=== PATIENT | female | born 1995 | race Caucasian/White ===

== ENCOUNTER → 2017-10-05 13:12 | Outpatient (CLI) | payer MEDICAID, SELFPAY ==
--- NOTE | 2017-10-05 13:16 | US_ITS ---
US breast LT complete COMPARISON: None INDICATION: Rest pain ORDERING PHYSICIAN: Shira Gonzalez PATIENT AGE: 21 years TECHNIQUE: Left breast ultrasound with axilla FINDINGS: General survey performed on the left breast shows a small cyst measuring 4 mm behind the nipple. No suspicious nodules evident. Small nodes are present in the axilla. IMPRESSION: 4 mm cyst in the retroareolar region otherwise negative left breast ultrasound BI-RADS Category: 2 Benign Finding(s) Suggest Follow-up as clinically warranted. Palpable nodule should be managed on clinical basis despite negative ultrasound.
== END ==
PROVIDERS: Family Provider Emergency Medicine; PCP Family Medicine Addiction Medicine; Visit Provider Nurse Practitioner Obstetrics & Gynecology
DX: N63.0 Unspecified lump in unspecified breast (principal)
CPT/HCPCS: 76641

== ENCOUNTER 2020-06-01 20:04 | Emergency (ER) | payer MEDICAID, SELFPAY ==
[2020-06-01 20:05] VITALS: BP 107/77; PULSE 99; RESP 16; TEMP 37.4; O2SAT 99; BMI 18.5
[2020-06-01 20:32] VITALS: BMI 18.5
[2020-06-01 20:38] LABS: Microscopic, Urine URINE MICROSCOPIC (MICROSCOPIC)
[2020-06-01 20:42] LABS: Appearance,Urine TURBID (Clear); Bilirubin,Urine Negative (Negative); Blood, Urine 2+ (Negative); Color,Urine YELLOW (Yellow); Glucose,Urine (UA) Negative (Negative); Ketones,Urine Negative (Negative); Leukocyte Esterase,Urine 2+ (Negative); Nitrate,Urine POSITIVE (Negative); Protein,Urine 2+ (Negative); Specific Gravity, Urine >= 1.030 (1.005-1.030); Urobilinogen,Urine 0.2 EU/dl (0.2)
[2020-06-01 20:43] LABS: Basophils % 0.1 % (0.1-2.0); Eosinophils # 0.1 K/mm3 (0.0-0.4); Eosinophils % 0.7 % (0.1-12.0); Hemoglobin 14.6 g/dL (12.2-16.2); Lymphocytes # 0.9 K/mm3 (0.7-4.5); Lymphocytes % 7.9 % (10-50); Mean Corpuscular HGB Conc 34.8 g/dL (31.8-35.4); Mean Corpuscular Hemoglobin 29.3 pg (27.0-31.2); Mean Corpuscular Volume 84.4 fl (81-99); Mean Platelet Volume 8.4 fl (7.4-10.4); Monocytes # 0.5 K/mm3 (0.1-1.0); Monocytes % 4.5 % (1.7-9.3); Neutrophils # 9.8 K/mm3 (1.8-7.8); Neutrophils % 86.8 % (37.0-80.0); Platelet Count 150 K/mm3 (142-424); Red Blood Count 4.97 M/mm3 (4.20-5.40); Urine Pregnancy, HCG Qual. Negative (Negative); White Blood Count 11.3 K/mm3 (4.8-10.8)
--- NOTE | 2020-06-01 20:43 | HMH.EDNVD ---
ED Disposition Clinical Impression: UTI (urinary tract infection) Qualifiers: Urinary tract infection type: acute pyelonephritis Qualified Code(s): N10 - Acute pyelonephritis Disposition: Home, Self-Care Condition on Discharge: Good Instructions: DI for Urinary Tract Infection (UTI) Additional Instructions: use meds and call pcp for urine culture results Prescriptions: levoFLOXacin [Levaquin 500mg tab] 500 mg PO DAILY #7 tab Transmission Status: Pending to [facility]/pharmacy #[id number] Referrals: Kayy Lara [Primary Care Provider] - - Critical Care Critical Care Time: No Attestation: On 06/01/20, the high probability of a clinically significant, sudden or life threatening deterioration of the following system(s) required my full and direct attention, intervention and personal management. The time I documented below is in addition to time spent performing reported procedures but includes the following listed in this critical care notation. Medical Decision Making - Medical Records Medical records reviewed: Yes: I reviewed the patient's medical records. - Primo Inquiry Pt receiving controlled substance: No Vital Signs: 06/01/20 20:05 Temperature 99.3 F Temperature Source Oral Pulse Rate [Left Radial] 99 H Respiratory Rate 16 Blood Pressure [Right Arm] 107/77 L Blood Pressure Mean [Right Arm] 87 Blood Pressure Source [Right Arm] Automatic Cuff Blood Pressure Position [Right Arm] Supine 02 Sat by Pulse Oximetry 99 Oxygen Delivery Method Room Air - Lab Data Lab results reviewed: Yes: I reviewed the patient's lab results. Lab Results 06/01/20 20:30: Urine Color Yellow, Urine Appearance Turbid, Urine pH 6.0, Ur Specific [place] >= 1.030, Urine Protein 2+, Urine Glucose (UA) Negative, Urine Ketones Negative, Urine Blood 2+, Urine Nitrate Positive, Urine Bilirubin Negative, Urine Urobilinogen 0.2, Ur Leukocyte Esterase 2+ A, Urine RBC 5-10, Urine WBC Tntc, Ur Squamous Epith Cells 10-20, Urine Bacteria 3+ 06/01/20 20:30: Urine HCG, Qual Negative 06/01/20 20:30: WBC 11.3 H, RBC 4.97, Hgb 14.6, Hct 42.0, MCV 84.4, MCH 29.3, MCHC 34.8, RDW 13.0, Plt Count 150, MPV 8.4, Neut % (Auto) 86.8 H, Lymph % (Auto) 7.9 L, [place] % (Auto) 4.5, Eos % (Auto) 0.7, Baso % (Auto) 0.1, Neut # (Auto) 9.8 H, Lymph # (Auto) 0.9, [place] # (Auto) 0.5, Eos # (Auto) 0.1, Baso # (Auto) 0.0, Total Counted 100, Neutrophils % (Manual) 84 H, Lymphocytes % (Manual) 15, Eosinophils % (Manual) 1, Platelet Estimate Normal, RBC Morphology Normal 06/01/20 20:30: Sodium 137, Potassium 3.2 L, Chloride 101, Carbon Dioxide 28, Anion Gap 11.2, BUN 9, Creatinine 0.70, Estimated Creat Clear 96, Estimated GFR 103, Est GFR ( Amer) 124, Glucose 141 H, Calcium 9.3, Total Bilirubin 0.4, AST 18, ALT 14, Alkaline Phosphatase 54, Total Protein 6.9, Albumin 4.1, Globulin 2.8, Albumin/Globulin Ratio 1.5, Amylase 78, Lipase 85 06/01/20 20:30: ESR 17 06/01/20 20:30: C-Reactive Protein 15.8 H Result diagrams: 06/01/20 20:30 06/01/20 20:30 Orders (Tests/Meds): ED MEDICATIONS Generic Name Dose Route Start Last Admin Trade Name Freq PRN Reason Stop Dose Admin Sodium Chloride 1,000 mls @ 999 mls/hr 06/01/20 20:45 06/01/20 20:45 Sod Chlor 0.9% 1000ml Bag IV 06/01/20 21:45 999 mls/hr .Q1H1M NAYAN Administration Ceftriaxone Sodium 1 gm/ 50 mls @ 100 mls/hr 06/01/20 20:45 06/01/20 20:46 Sodium Chloride IV 06/15/20 20:44 100 mls/hr Q24H NAYAN Administration Protocol Discontinued Medications Generic Name Dose Route Start Last Admin Trade Name Freq PRN Reason Stop Dose Admin Iopamidol 75 ml 06/01/20 21:08 06/01/20 21:09 Iopamidol-370 (76%);100ml Bottle IV 06/01/20 21:09 75 ml ONCE ONE Administration Ketorolac Tromethamine 30 mg 06/01/20 20:45 10/27/20 20:46 Ketorolac 30mg/Ml Vial IV 06/01/20 20:46 30 mg ONCE ONE Administration Sodium Chloride 10 ml 06/01/20 21:08 06/01/20 21:09 Sodium Chloride 0.9% 10ml Syr (Ra
[2020-06-01 20:44] LABS: Chloride 101 mmol/L (98-107); Potassium 3.2 mmoL/L (3.5-5.1); Sodium 137 mmol/L (136-145)
[2020-06-01 20:46] LABS: MANUAL DIFFERENTIAL MANUAL DIFFERENTIAL (MANUAL DIFF)
[2020-06-01 20:47] LABS: Alanine Aminotransferase 14 U/L (12-78); Alkaline Phosphatase 54 U/L (38-126); Amylase 78 U/L (30-110); Anion Gap 11.2 mEq/L (5-15); Aspartate Amino Transferase 18 U/L (14-36); Bilirubin,Total 0.4 mg/dl (0.2-1.3); Blood Urea Nitrogen 9 mg/dl (7-17); Calcium 9.3 mg/dl (8.4-10.2); Carbon Dioxide 28 mmol/L (22.0-30.0); Creatinine Clearance Estimated 96 mL/min (50-200); Estimated Glomerular Filt Rate 103 ml/min (>60); GFR (African American) 124 ML/MIN (>60); Glucose 141 mg/dl (74-100); Lipase 85 U/L (23-300)
--- NOTE | 2020-06-01 20:47 | CT_ITS ---
PROCEDURE: CT ABDOMEN PELVIS W CON CLINICAL INDICATION: abd pain Left flank pain, left lower quadrant pain COMPARISON: CT ABDPELWO CT abdomen pelvis wo con from 09/30/2018 TECHNIQUE: IV Contrast: 75ML OPTIRAY 350 Oral Contrast None Axial images obtained with sagittal and coronal reformats. All CT scans at the facility use one or more dose reduction, viz: automated exposure control, ma/kV adjustment per patient size (including targeted exams where dose is matched to indication, i.e. head), or iterative reconstruction technique. FINDINGS: LOWER THORAX: No acute finding ABDOMEN & PELVIS: The liver, gallbladder, spleen, adrenal glands, and pancreas have an unremarkable appearance. There is enhancement with thickening of the urothelium of the left renal pelvis and ureter. No definite ureteral calculus evident. There is minimal prominence of the left renal pelvis. No renal or ureteral calculi identified. Urinary bladder has an unremarkable appearance. The appendix is slightly prominent but is without stranding of the periappendiceal fat. Air density is also present within the appendix which is expected no intestinal obstruction or free air. Bowel gas pattern is nonspecific. Small amount fluid is present in the pelvis. There is mild prominence of the ovaries on both sides with numerous follicles with a 2 cm right ovarian cyst noted. No acute bony findings. There are few scattered small sclerotic foci in the hips which may be due to bone islands. IMPRESSION: 1. Mild left hydroureteronephrosis with thickening of the wall of the left renal pelvis and left ureter with contrast enhancement without definite obstruction. These findings may be seen with urinary tract infection. Recently passed stone is also consideration. Please correlate with clinical findings. 2. Prominent bilateral ovaries with small follicles and a 2 cm right ovarian cyst with trace amount of fluid in the pelvis. Dictated by: Ten Baxter MD 06/02/2020 06:38 Ten Baxter MD in [facility] 06/02/2020 06:38
[2020-06-01 20:48] LABS: Albumin Level 4.1 g/dl (3.5-5.0); Albumin/Globulin Ratio 1.5 (1.1-1.8); Globulin 2.8 g/dL (1.3-3.2); Total Protein,Serum 6.9 g/dl (6.3-8.2)
[2020-06-01 20:59] LABS: C-Reactive Protein 15.8 mg/L (0-4)
[2020-06-01 21:00] VITALS: BP 107/77; PULSE 78; RESP 17; O2SAT 99
[2020-06-01 21:14] LABS: Erythrocyte Sedimentation Rate 17 mm/hr (0-20)
[2020-06-01 21:18] LABS: Bacteria,Urine 3+ /lpf; WBC,Urine TNTC #/hpf (0-3)
[2020-06-01 21:30] VITALS: BP 110/58; PULSE 79; RESP 17; O2SAT 100
[2020-06-01 21:35] LABS: Eosinophils % 1 % (0-3); Lymphocytes % 15 % (10-50); Neutrophils % 84 % (42-76); Platelet Estimate Normal; RBC Morphology Normal; Total Cells Counted 100
[2020-06-01 22:00] VITALS: BP 94/65; PULSE 76; RESP 17; O2SAT 100
[2020-06-01 22:30] VITALS: BP 93/56; PULSE 76; RESP 17; O2SAT 99
[2020-06-01 22:33] VITALS: BP 101/62; PULSE 71; RESP 17; TEMP 37.2; O2SAT 99
== END 2020-06-01 22:35 | disposition home or self-care (01) ==
PROVIDERS: Emergency Provider Emergency Medicine; PCP Family Medicine Addiction Medicine
DX: N10 Acute pyelonephritis (principal); F17.290 Nicotine dependence, other tobacco product, uncomplicated
CPT/HCPCS: 74177; 80053; 81001; 81025; 82150; 83690; 85007; 85025; 85651; 86140; 87086; 87088; 87186; 96365; 96375; 99284; Q9967

== ENCOUNTER 2020-06-22 17:20 | Emergency (ER) | payer MEDICAID, SELFPAY ==
[2020-06-22 17:25] VITALS: BP 112/76; PULSE 79; RESP 16; TEMP 36.8; O2SAT 100; BMI 18.4
[2020-06-22 17:31] VITALS: BMI 18.5
[2020-06-22 17:36] LABS: Microscopic, Urine URINE MICROSCOPIC (MICROSCOPIC)
--- NOTE | 2020-06-22 17:37 | HMH.EDGENADL ---
ED Disposition Clinical Impression: Bleeding in early , Abdominal pain affecting Disposition: Home, Self-Care Condition on Discharge: Good Additional Instructions: Return to the hospital in 2 days for outpatient beta-hCG level. See Dr. Vergara in her office on 06/25/2020. Call [phone] to schedule appointment. No sexual intercourse or strenuous activity until you see Dr. Vergara. Return to the emergency room if worsening or severe abdominal pain or bleeding. Referrals: Kayy Lara [Primary Care Provider] - Angela Vergara MD [Staff Physician] - - Critical Care Critical Care Time: No Attestation: On 06/22/20, the high probability of a clinically significant, sudden or life threatening deterioration of the following system(s) required my full and direct attention, intervention and personal management. The time I documented below is in addition to time spent performing reported procedures but includes the following listed in this critical care notation. Medical Decision Making - Primo Inquiry Pt receiving controlled substance: No Vital Signs: 06/22/20 17:25 06/22/20 17:51 Temperature 98.3 F Temperature Source Oral Pulse Rate [Right Radial] 79 79 Respiratory Rate 16 18 Blood Pressure [Right Arm] 112/76 99/72 L Blood Pressure Mean [Right Arm] 88 81 Blood Pressure Source [Right Arm] Automatic Cuff Automatic Cuff Blood Pressure Position [Right Arm] Sitting Sitting 02 Sat by Pulse Oximetry 100 99 Oxygen Delivery Method Room Air Room Air - Lab Data Lab Results 06/22/20 17:25: Urine Color Yellow, Urine Appearance Cloudy, Urine pH 7.0, Ur Specific [place] 1.025, Urine Protein Negative, Urine Glucose (UA) Negative, Urine Ketones Negative, Urine Blood Negative, Urine Nitrate Negative, Urine Bilirubin Negative, Urine Urobilinogen 0.2, Ur Leukocyte Esterase Negative, Urine RBC Occasional, Urine WBC 3-5, Ur Squamous Epith Cells 5-10, Amorphous Sediment 1+, Urine Bacteria 2+ 06/22/20 17:25: Urine HCG, Qual Positive 06/22/20 18:00: WBC 7.0, RBC 5.06, Hgb 14.5, Hct 43.7, MCV 86.3, MCH 28.7, MCHC 33.2, RDW 12.7, Plt Count 197, MPV 7.8, Neut % (Auto) 64.8, Lymph % (Auto) 30.8, [place] % (Auto) 3.5, Eos % (Auto) 0.6, Baso % (Auto) 0.3, Neut # (Auto) 4.5, Lymph # (Auto) 2.2, [place] # (Auto) 0.2, Eos # (Auto) 0.0, Baso # (Auto) 0.0 06/22/20 18:00: HCG, Quant [id number] H Result diagrams: 06/22/20 18:00 Orders (Tests/Meds): ORDERS Category Date Time Status Urine Culture Stat Micro 06/22/20 17:25 Received US OB transvaginal Stat Ultrasound 06/22/20 17:55 Taken - US Data US Images: Pelvis Findings Narrative: As per [facility] procedure, ultrasound report received from bindery technician: Left ovary polycystic Right ovary enlarged, 3 cm cyst Uterus retroverted Intrauterine , yolk sac only Moderate amount of cul-de-sac fluid - Physician Consults Physician Consulted: Jai Time: 19:54 Reason -: Obstetrical Eval/Care Comment/Response: She wants further information on the ultrasound reading. I called the x-ray x ray electronics wiring technician, who will call the chemical treatment plant technician, Anne Marie, who is not currently in the hospital anymore, and have her call Dr. Vergara. 8:00 PM: Dr. Vergara spoke with the chemical treatment plant technician and got clarification. There is a gestational sac with a yolk sac in the uterus, she says it is definitely an IUP. The fluid in the cul-de-sac was mild to moderate, which she says does not concern her. She feels that the patient should be discharged with a repeat beta-hCG in 2 days and to see her in the office on 06/25/2020. Medical Decision Narrative: 7:45 PM: I am concerned about the discordance between the patient's beta hCG and the findings on ultrasound, could this represent ectopic . General Adult HPI - General Stated complaint: preg, spotting, cramping Time Seen by Provider: 06/22/20 17:37 - History of Present Illness HPI narrative: States she is and havi
[2020-06-22 17:50] LABS: Appearance,Urine CLOUDY (Clear); Bilirubin,Urine Negative (Negative); Blood, Urine Negative (Negative); Color,Urine YELLOW (Yellow); Glucose,Urine (UA) Negative (Negative); Ketones,Urine Negative (Negative); Leukocyte Esterase,Urine Negative (Negative); Nitrate,Urine Negative (Negative); Protein,Urine Negative (Negative); Specific Gravity, Urine 1.025 (1.005-1.030); Urobilinogen,Urine 0.2 EU/dl (0.2)
[2020-06-22 17:51] VITALS: BP 99/72; PULSE 79; RESP 18; O2SAT 99
[2020-06-22 17:53] LABS: Urine Pregnancy, HCG Qual. Positive (Negative)
--- NOTE | 2020-06-22 17:55 | US_ITS ---
PROCEDURE: US OB TRANSVAGINAL CLINICAL INDICATION: bleeding, , r/o ectopic Early Ob with bleeding COMPARISON: US TVP US TRANSVAGINAL PREG from 12/04/2016 FINDINGS: There is an intrauterine gestational sac and a yolk sac noted but no obvious pole. It may be too early to see a pole therefore, recommend follow-up ultrasound as well as correlation with serum beta HCG. There is a 3 cm right ovarian cyst. Bilateral ovarian blood flow is present. The uterus is retroverted. Fluid is present in the cul-de-sac. The IMPRESSION: Intrauterine gestational sac present with only yolk sac noted. No pole evident at this time. Possibly too early. Follow-up suggested. Moderate amount of fluid in the cul-de-sac. 3 cm right ovarian cyst. Dictated by: Ten Baxter MD 06/23/2020 06:18 Ten Baxter MD in [place] 06/23/2020 06:18
--- NOTE | 2020-06-22 18:09 | PC.NURSE ---
radiology notified of ultrasound order
[2020-06-22 18:19] LABS: Amorphous Sediment,Urine 1+ /lpf; Bacteria,Urine 2+ /lpf; RBC,Urine Occasional #/hpf (0-3)
[2020-06-22 18:21] LABS: Basophils % 0.3 % (0.1-2.0); Eosinophils % 0.6 % (0.1-12.0); Hematocrit 43.7 % (37.0-47.0); Hemoglobin 14.5 g/dL (12.2-16.2); Lymphocytes # 2.2 K/mm3 (0.7-4.5); Lymphocytes % 30.8 % (10-50); Mean Corpuscular HGB Conc 33.2 g/dL (31.8-35.4); Mean Corpuscular Hemoglobin 28.7 pg (27.0-31.2); Mean Corpuscular Volume 86.3 fl (81-99); Mean Platelet Volume 7.8 fl (7.4-10.4); Monocytes # 0.2 K/mm3 (0.1-1.0); Monocytes % 3.5 % (1.7-9.3); Neutrophils # 4.5 K/mm3 (1.8-7.8); Neutrophils % 64.8 % (37.0-80.0); Platelet Count 197 K/mm3 (142-424); Red Blood Count 5.06 M/mm3 (4.20-5.40); Red Cell Distribution Width 12.7 % (11.5-17.5)
[2020-06-22 18:41] LABS: HCG,Quantitative 11027 mIU/ml (0-5.42)
[2020-06-22 20:50] VITALS: BP 108/72; PULSE 99; RESP 18; TEMP 36.8
== END 2020-06-22 21:00 | disposition home or self-care (01) ==
PROVIDERS: Emergency Provider Emergency Medicine; PCP Family Medicine Addiction Medicine
DX: O20.9 Hemorrhage in early pregnancy, unspecified (principal); F17.290 Nicotine dependence, other tobacco product, uncomplicated
CPT/HCPCS: 76817; 81001; 81025; 84702; 85025; 87086; 99283

== ENCOUNTER → 2020-06-24 13:37 | Outpatient (CLI) | payer MEDICAID, SELFPAY ==
[2020-06-24 15:02] LABS: HCG,Quantitative 13812 mIU/ml (0-5.42)
== END ==
PROVIDERS: Visit Provider Emergency Medicine
DX: Z34.90 Encounter for supervision of normal pregnancy, unspecified, unspecified trimester (principal)
CPT/HCPCS: 36415; 84702

== ENCOUNTER → 2020-06-28 14:54 | Outpatient (CLI) | payer MEDICAID, SELFPAY | PROVIDERS: Visit Provider Obstetrics & Gynecology | DX: Z34.90 Encounter for supervision of normal pregnancy, unspecified, unspecified trimester (principal) | CPT/HCPCS: 36415; 84702 ==

== ENCOUNTER → 2020-07-16 14:28 | Outpatient (CLI) | payer MEDICAID, SELFPAY ==
--- NOTE | 2020-07-16 14:28 | US_ITS ---
PROCEDURE: US OB TRANSVAGINAL CLINICAL INDICATION: US t/v- check for viability and DATES COMPARISON: US US OB TRANSVAGINAL from 06/22/2020 FINDINGS: An intrauterine gestational sac is present with a pole with a crown-rump length of 1.98cm correlating to gestational age of 8weeks 4days. heart tones are present with an FHR of 167bpm. Yolk sac is noted. There is a right ovarian cyst at 2.4 cm. Bilateral ovarian blood flow is present IMPRESSION: Live IUP at 8 weeks 4 days. Estimated due date by Ultrasound is 02/21/2021 Dictated by: Ten Baxter MD 07/16/2020 16:26 Ten Baxter MD in [place] 07/16/2020 16:26
== END ==
PROVIDERS: PCP Family Medicine Addiction Medicine; Visit Provider Obstetrics & Gynecology
DX: O36.80X0 Pregnancy with inconclusive fetal viability, not applicable or unspecified (principal)
CPT/HCPCS: 76817

== ENCOUNTER → 2020-07-19 17:40 | Outpatient (CLI) | payer MEDICAID, SELFPAY ==
[2020-07-19 18:28] LABS: Benzodiazepines Screen,Urine Negative ng/ml (<200)
[2020-07-19 18:29] LABS: Amphetamine/Metha Screen,Urine Negative ng/ml (<1000)
[2020-07-19 18:30] LABS: Barbiturates Screen,Urine Negative ng/ml (<200); Cannabinoid Screen,Urine Negative ng/ml (<50)
[2020-07-19 18:31] LABS: Cocaine Screen,Urine Negative ng/ml (<300); Methadone Screen,Urine Negative ng/ml (<300)
[2020-07-19 18:32] LABS: Opiate Screen,Urine Negative ng/ml (<300)
[2020-07-19 18:33] LABS: Phencyclidine Screen,Urine Negative ng/ml (<25)
== END ==
LOC: LAB 17:40 → LAB.DROPOF 07-20 08:25
PROVIDERS: Visit Provider Obstetrics & Gynecology
DX: Z34.90 Encounter for supervision of normal pregnancy, unspecified, unspecified trimester (principal)
CPT/HCPCS: 80305; 87086; 87088; 87186

== ENCOUNTER → 2020-08-13 15:30 | Outpatient (CLI) | payer MEDICAID, SELFPAY ==
[2020-08-13 17:03] LABS: Basophils % 0.2 % (0.1-2.0); Eosinophils % 0.4 % (0.1-12.0); Hematocrit 39.6 % (37.0-47.0); Hemoglobin 13.8 g/dL (12.2-16.2); Lymphocytes # 1.5 K/mm3 (0.7-4.5); Lymphocytes % 22.1 % (10-50); Mean Corpuscular HGB Conc 34.8 g/dL (31.8-35.4); Mean Corpuscular Hemoglobin 29.1 pg (27.0-31.2); Mean Corpuscular Volume 83.8 fl (81-99); Mean Platelet Volume 8.1 fl (7.4-10.4); Monocytes # 0.2 K/mm3 (0.1-1.0); Monocytes % 3.1 % (1.7-9.3); Neutrophils % 74.1 % (37.0-80.0); Platelet Count 168 K/mm3 (142-424); Red Blood Count 4.72 M/mm3 (4.20-5.40); White Blood Count 6.7 K/mm3 (4.8-10.8)
[2020-08-15 18:00] LABS: Rapid Plasma Reagin Ab Titer Non Reactive (NonRea<1:1)
[2020-08-16 08:08] LABS: HIV Screen 4th Generation wRfx Non Reactive (Non Reactive)
[2020-08-16 15:15] LABS: Hepatitis B Surface Antigen Negative (Negative); Hepatitis C Antibody 0.1 s/co ratio (0.0-0.9)
== END ==
PROVIDERS: Visit Provider Obstetrics & Gynecology
DX: Z34.90 Encounter for supervision of normal pregnancy, unspecified, unspecified trimester (principal)
CPT/HCPCS: 36415; 85025; 86592; 86703; 86762; 86850; 87340; 87380; G0432

== ENCOUNTER 2020-09-02 20:51 | Emergency (ER) | payer MEDICAID, SELFPAY ==
[2020-09-02 20:59] VITALS: BP 116/64; PULSE 96; RESP 18; TEMP 36.9; O2SAT 98; BMI 19.5
--- NOTE | 2020-09-02 21:03 | HMH.EDUTC ---
[facility] [place] Disposition Clinical Impression: Nausea & vomiting Qualifiers: Vomiting type: unspecified Vomiting Intractability: unspecified Qualified Code(s): R11.2 - Nausea with vomiting, unspecified Headache Qualifiers: Headache type: unspecified Headache chronicity pattern: unspecified pattern Intractability: not intractable Qualified Code(s): R51.9 - Headache, unspecified Disposition: Home, Self-Care Condition on Discharge: Good Instructions: DI for Headache, Ondansetron Additional Instructions: ? Avoid fruit juices, as these do not replace minerals and can actually increase diarrhea. ? Children and adults can use sports drinks to replenish electrolytes. Younger children and infants should use products formulated for children, like oral rehydration solutions. ? Eat food in small amounts and let your stomach recover. ? Get lots of rest. You may feel tired or weak. ? No greasy or fried foods for the next 24-48 hours BRAT diet Bananas Rice Apples and [place] ? Make sure to drink plenty of liquids ? Return if needed ? Straight to ER if any life threatening symptoms ? Zofran as prescribed ?? Follow up with family doctor in the next 48-72 hours if no improvement or any worsening of symptoms Medication for headache that is on the list by your OBGYN FOllow up with your Family Doctor Follow up with your OBGYN Prescriptions: Ondansetron [Zofran 4mg ODT] 4 mg PO TIDP PRN #12 tab PRN Reason: Vomiting Transmission Status: Pending to [facility] #[id number] Referrals: Kayy Lara [Primary Care Provider] - As needed Angela Vergara MD [Staff Physician] - Time of Disposition: 21:38 Medical Decision Making - Primo Inquiry Pt receiving controlled substance: No Primo was queried for this patient: No Vital Signs: 09/02/20 20:59 09/02/20 21:14 Temperature 98.4 F 98.0 F Temperature Source Oral Oral Pulse Rate 65 Pulse Rate [Left] 96 H Respiratory Rate 18 16 Blood Pressure 114/72 Blood Pressure [Right Arm] 116/64 Blood Pressure Mean [Right Arm] 81 Blood Pressure Source [Right Arm] Automatic Cuff Blood Pressure Position [Right Arm] Sitting 02 Sat by Pulse Oximetry 98 Orders (Tests/Meds): ED MEDICATIONS Discontinued Medications Generic Name Dose Route Start Last Admin Trade Name Freq PRN Reason Stop Dose Admin Acetaminophen 650 mg 09/02/20 21:06 09/02/20 21:11 Acetaminophen 325mg Tab PO 09/02/20 21:07 650 mg ONCE ONE Administration Ondansetron HCl 4 mg 09/02/20 21:06 09/02/20 21:11 Ondansetron 4mg Odt SL 09/02/20 21:07 4 mg ONCE ONE Administration Medical Decision Narrative: Medication discussed with Pharmacy zofran and Tylenol baby safe due to after Tylenol and Zofran patient states that headache is better and nausea now gone patient sitting up on table drinking water no vomiting since arrival discussed with patient that she could be transferred to the ED for further work up and declined States that she will go home and try to sleep off remainder of migraine headache and follow up tomorrow with PCP or OBGYN [facility] [place] HPI - General Stated complaint: migraine and vomitting Time Seen by Provider: 09/02/20 21:04 Mode of Arrival: Ambulatory Source of Information: Patient Limitations: No Limitations Description of Symptoms (Recalled from Triage Doc. by RN): pt has had a migraine and n/v for three days and is 15 weeks . HEENT Symptoms (Recalled from RN notes): Yes (HILL) Resp Symptoms (Recalled from RN notes): No Skin Symptoms (Recalled from RN notes): No MS Symptoms (Recalled from RN notes): No Functional Status (Recalled from RN notes): na - History of Present Illness Provider Complaint: Patient state that she is 15wks OB States that she has a history of migraine HILL States that when she gets a migraine she has some vomiting States that she has had Headache on and off for 3 days along with vomiting Denies abdominal pain denies spotting State that she took Tylenol th
[2020-09-02 21:14] VITALS: BP 114/72; PULSE 65; RESP 16; TEMP 36.7
== END 2020-09-02 21:38 | disposition home or self-care (01) ==
PROVIDERS: Emergency Provider Nurse Practitioner; PCP Family Medicine Addiction Medicine
DX: G43.111 Migraine with aura, intractable, with status migrainosus (principal); Z3A.15 15 weeks gestation of pregnancy; Z88.2 Allergy status to sulfonamides
CPT/HCPCS: 99202; G0463

== ENCOUNTER 2020-09-12 17:52 | Emergency (ER) | payer MEDICAID, SELFPAY ==
[2020-09-12 17:53] VITALS: BP 112/70; PULSE 90; RESP 19; TEMP 36.7; O2SAT 100; BMI 20.5
--- NOTE | 2020-09-12 17:57 | HMH.EDGENADL ---
ED Disposition Clinical Impression: Asymptomatic bacteriuria during Disposition: Home, Self-Care Condition on Discharge: Good Additional Instructions: Take antibiotics as prescribed. Take prescribed labeling for breakthrough headaches only. Please continue drink plenty of clear fluids. Follow-up with SOC[employer]UDIES TEACHER within several days. Return immediately if any vaginal bleeding, recurrent abdominal cramping, decreased movement, fever/chills, or any other new concerning symptoms. Prescriptions: Nitrofurantoin Monohyd/M-Cryst [Macrobid 100 mg Capsule] 100 mg PO BID 5 Days #10 cap Transmission Status: Pending to [facility] # Metoclopramide HCl [Reglan 10mg Tab] 10 mg PO BID #12 tab Transmission Status: Pending to [facility] # Referrals: PCP,No [Primary Care Provider] - - Critical Care Critical Care Time: No Attestation: On , the high probability of a clinically significant, sudden or life threatening deterioration of the following system(s) required my full and direct attention, intervention and personal management. The time I documented below is in addition to time spent performing reported procedures but includes the following listed in this critical care notation. Medical Decision Making - Medical Records Medical records reviewed: Yes: I reviewed the patient's medical records. - Primo Inquiry Pt receiving controlled substance: No Vital Signs: 09/12/20 17:53 09/12/20 18:50 Temperature 98.1 F Temperature Source Oral Pulse Rate [Left Radial] 90 84 Respiratory Rate 19 Blood Pressure [Right Arm] 112/70 113/65 Blood Pressure Mean [Right Arm] 84 81 Blood Pressure Source [Right Arm] Automatic Cuff Automatic Cuff Blood Pressure Position [Right Arm] Sitting Sitting 02 Sat by Pulse Oximetry 100 100 Oxygen Delivery Method Room Air Room Air - Lab Data Lab Results 09/12/20 18:05: Blood Type O Positive, Antibody Screen Negative 09/12/20 18:26: Urine Color Yellow, Urine Appearance Sl cloudy, Urine pH 6.0, Ur Specific [place] 1.025, Urine Protein Negative, Urine Glucose (UA) 1+, Urine Ketones Negative, Urine Blood Negative, Urine Nitrate Negative, Urine Bilirubin Negative, Urine Urobilinogen 0.2, Ur Leukocyte Esterase Negative, Ur Squamous Epith Cells 20-50, Amorphous Sediment Trace, Urine Bacteria Trace 09/12/20 18:26: WBC 7.2, RBC 4.39, Hgb 12.9, Hct 37.9, MCV 86.3, MCH 29.5, MCHC 34.1, RDW 14.1, Plt Count 182, MPV 8.0, Neut % (Auto) 79.3, Lymph % (Auto) 15.5, [place] % (Auto) 4.5, Eos % (Auto) 0.5, Baso % (Auto) 0.1, Neut # (Auto) 5.7, Lymph # (Auto) 1.1, [place] # (Auto) 0.3, Eos # (Auto) 0.0, Baso # (Auto) 0.0 09/12/20 18:26: Sodium 134 L, Potassium 3.3 L, Chloride 105, Carbon Dioxide 25, Anion Gap 7.3, BUN 7, Creatinine 0.50 L, Estimated Creat Clear 144, Estimated GFR 152, Est GFR ( Amer) 183, Glucose 80, Calcium 9.4, Total Bilirubin 0.4, AST 23, ALT 17, Alkaline Phosphatase 47, Total Protein 6.8, Albumin 3.8, Globulin 3.0, Albumin/Globulin Ratio 1.3 Result diagrams: 09/12/20 18:26 09/12/20 18:26 Orders (Tests/Meds): ED MEDICATIONS Generic Name Dose Route Start Last Admin Trade Name Freq PRN Reason Stop Dose Admin Sodium Chloride 1,000 mls @ 999 mls/hr 09/12/20 18:15 09/12/20 18:42 Sod Chlor 0.9% 1000ml Bag IV 09/12/20 19:15 999 mls/hr .Q1H1M NAYAN Administration Discontinued Medications Generic Name Dose Route Start Last Admin Trade Name Freq PRN Reason Stop Dose Admin Metoclopramide HCl 10 mg 09/12/20 18:17 09/12/20 18:42 Metoclopramide Hcl 10mg/2ml Vial IVP 09/12/20 18:18 10 mg ONCE ONE Administration ORDERS Category Date Time Status HCG,Quantitative Stat Lab 09/12/20 18:26 Received Medical Decision Narrative: Patient presents the emergency department with nausea, headache, abdominal cramping. On arrival, patient hemodynamically stable and well-appearing. Blood pressure well controlled and she is only 17 we
--- NOTE | 2020-09-12 18:33 | PC.NURSE ---
Heart tone 134
[2020-09-12 18:36] LABS: Microscopic, Urine URINE MICROSCOPIC (MICROSCOPIC)
[2020-09-12 18:39] LABS: Basophils % 0.1 % (0.1-2.0); Eosinophils % 0.5 % (0.1-12.0); Hematocrit 37.9 % (37.0-47.0); Hemoglobin 12.9 g/dL (12.2-16.2); Lymphocytes # 1.1 K/mm3 (0.7-4.5); Lymphocytes % 15.5 % (10-50); Mean Corpuscular HGB Conc 34.1 g/dL (31.8-35.4); Mean Corpuscular Hemoglobin 29.5 pg (27.0-31.2); Mean Corpuscular Volume 86.3 fl (81-99); Monocytes # 0.3 K/mm3 (0.1-1.0); Monocytes % 4.5 % (1.7-9.3); Neutrophils # 5.7 K/mm3 (1.8-7.8); Neutrophils % 79.3 % (37.0-80.0); Platelet Count 182 K/mm3 (142-424); Red Blood Count 4.39 M/mm3 (4.20-5.40); Red Cell Distribution Width 14.1 % (11.5-17.5); White Blood Count 7.2 K/mm3 (4.8-10.8)
[2020-09-12 18:46] LABS: Chloride 105 mmol/L (98-107); Potassium 3.3 mmoL/L (3.5-5.1); Sodium 134 mmol/L (136-145)
[2020-09-12 18:47] LABS: Appearance,Urine SL CLOUDY (Clear); Bilirubin,Urine Negative (Negative); Blood, Urine Negative (Negative); Color,Urine YELLOW (Yellow); Glucose,Urine (UA) 1+ (Negative); Ketones,Urine Negative (Negative); Leukocyte Esterase,Urine Negative (Negative); Nitrate,Urine Negative (Negative); Protein,Urine Negative (Negative); Specific Gravity, Urine 1.025 (1.005-1.030); Urobilinogen,Urine 0.2 EU/dl (0.2)
[2020-09-12 18:48] LABS: Blood Urea Nitrogen 7 mg/dl (7-17); Creatinine Clearance Estimated 144 mL/min (50-200); Estimated Glomerular Filt Rate 152 ml/min (>60); GFR (African American) 183 ML/MIN (>60)
[2020-09-12 18:49] LABS: Alanine Aminotransferase 17 U/L (12-78); Albumin Level 3.8 g/dl (3.5-5.0); Albumin/Globulin Ratio 1.3 (1.1-1.8); Alkaline Phosphatase 47 U/L (38-126); Amorphous Sediment,Urine Trace /lpf; Anion Gap 7.3 mEq/L (5-15); Aspartate Amino Transferase 23 U/L (14-36); Bacteria,Urine Trace /lpf; Bilirubin,Total 0.4 mg/dl (0.2-1.3); Calcium 9.4 mg/dl (8.4-10.2); Carbon Dioxide 25 mmol/L (22.0-30.0); Glucose 80 mg/dl (74-100); Squamous Epithelial Cell,Urine 20-50 #/hpf (0-5); Total Protein,Serum 6.8 g/dl (6.3-8.2)
[2020-09-12 18:50] VITALS: BP 113/65; PULSE 84; O2SAT 100
[2020-09-12 19:50] VITALS: BP 114/67; PULSE 112; RESP 14; TEMP 36.6; O2SAT 98
== END 2020-09-12 19:53 | disposition home or self-care (01) ==
PROVIDERS: Emergency Provider Emergency Medicine
DX: O99.891 Other specified diseases and conditions complicating pregnancy (principal); Z3A.17 17 weeks gestation of pregnancy; F17.290 Nicotine dependence, other tobacco product, uncomplicated; Z88.2 Allergy status to sulfonamides
CPT/HCPCS: 36415; 80053; 81001; 84702; 85025; 86850; 99282

== ENCOUNTER → 2020-10-08 12:57 | Outpatient (CLI) | payer MEDICAID, SELFPAY ==
--- NOTE | 2020-10-08 13:13 | US_ITS ---
PROCEDURE: US OB /MATERNAL DETAIL CLINICAL INDICATION: US OB Complete COMPARISON: US US OB TRANSVAGINAL from 07/16/2020 FINDINGS: There is a single live fetus which is in cephalic presentation. The cervix is closed measuring 4 cm in length. The placenta is anterior and grade 1 in implantation. Complete survey performed and was unremarkable on the submitted images as in PACS. No discrete anomalies identified on survey imaging by technologist. Active fetus. Three-vessel cord with satisfactory umbilical cord insertion. 4- chamber heart noted. Survey of brain & ventricles Unremarkable. Face and neck survey unremarkable. Diaphragm and chest views unremarkable. Abdomen: Both kidneys noted and unremarkable. Stomach noted and satisfactory. Spine: Survey of the spine satisfactory with no anomalies identified nor imaged. Both arms and legs noted. Amniotic Fluid: Adequate. Maternal adnexa: No significant findings. Measurements: Average ultrasound age 20weeks 4days. Gestational Age 20weeks 4days Estimated due date by ultrasound age 0702/21/2021. Estimated weight 362g BPD = 20weeks 6days OFD = 21weeks 0days HC = 20weeks 1day AC = 20weeks 4days FL = 20weeks 5days Growth Percentile= 45Percent% Heart Rate = 146bpm Cerebellum = 20weeks 6days Humerus = 20weeks 6days HC/AC is 1.15 CI is 0.79 FL/BPD is 0.69 FL/AC is 0.22 IMPRESSION: Live IUP at 20 weeks 4 days in cephalic presentation. No obvious anomalies. Please see above for detail. Dictated by: Ten Baxter MD 10/09/2020 07:28 Ten Baxter MD in [facility] 10/09/2020 07:28
== END ==
PROVIDERS: Visit Provider Obstetrics & Gynecology
DX: Z36.0 Encounter for antenatal screening for chromosomal anomalies (principal)
CPT/HCPCS: 76811

== ENCOUNTER → 2020-11-09 12:42 | Outpatient (CLI) | payer MEDICAID, SELFPAY | PROVIDERS: Visit Provider Obstetrics & Gynecology | DX: Z34.90 Encounter for supervision of normal pregnancy, unspecified, unspecified trimester (principal) ==

== ENCOUNTER 2020-11-09 20:19 | Outpatient (CLI) | payer MEDICAID, SELFPAY ==
[2020-11-09 20:41] VITALS: BMI 23.0
[2020-11-09 20:45] VITALS: BP 133/81; PULSE 113; RESP 16; TEMP 36.8; O2SAT 99; BMI 24.5
[2020-11-09 20:56] LABS: Microscopic, Urine URINE MICROSCOPIC (MICROSCOPIC)
[2020-11-09 21:03] LABS: Appearance,Urine CLEAR (Clear); Bilirubin,Urine Negative (Negative); Blood, Urine Negative (Negative); Color,Urine YELLOW (Yellow); Glucose,Urine (UA) Negative (Negative); Ketones,Urine Negative (Negative); Leukocyte Esterase,Urine Negative (Negative); Nitrate,Urine Negative (Negative); Protein,Urine Negative (Negative); Specific Gravity, Urine 1.015 (1.005-1.030); Urobilinogen,Urine 0.2 EU/dl (0.2)
[2020-11-09 21:10] LABS: Amphetamine/Metha Screen,Urine Negative ng/ml (<1000)
[2020-11-09 21:11] LABS: Barbiturates Screen,Urine Negative ng/ml (<200); Fetal Membrane Rupture (Rapid) Negative (Negative)
[2020-11-09 21:12] LABS: Benzodiazepines Screen,Urine Negative ng/ml (<200); Cannabinoid Screen,Urine Negative ng/ml (<50)
[2020-11-09 21:13] LABS: Cocaine Screen,Urine Negative ng/ml (<300)
[2020-11-09 21:14] LABS: Bacteria,Urine 1+ /lpf; Methadone Screen,Urine Negative ng/ml (<300); Phencyclidine Screen,Urine Negative ng/ml (<25)
[2020-11-09 21:15] LABS: Opiate Screen,Urine Negative ng/ml (<300)
== END 2020-11-09 21:21 | disposition home or self-care (01) ==
LOC: OBOUT 20:20 → OB 20:22
PROVIDERS: Visit Provider Nurse Practitioner Obstetrics & Gynecology
DX: O26.892 Other specified pregnancy related conditions, second trimester (principal); Z3A.25 25 weeks gestation of pregnancy
CPT/HCPCS: 59025; 80305; 81001; 84112; G0463

== ENCOUNTER → 2020-11-11 11:54 | Outpatient (CLI) | payer MEDICAID, SELFPAY ==
[2020-11-11 12:21] LABS: Glucose,Fasting 77 mg/dl (74-100)
[2020-11-11 14:33] LABS: Glucose 1 Hour 104 mg/dL (74-100)
== END ==
PROVIDERS: Visit Provider Obstetrics & Gynecology
DX: Z34.90 Encounter for supervision of normal pregnancy, unspecified, unspecified trimester (principal)
CPT/HCPCS: 36415; 82951

== ENCOUNTER 2022-01-09 20:26 | Emergency (ER) | payer MEDICAID, SELFPAY ==
--- NOTE | 2022-01-09 20:24 | ECG_ITS ---
APPROVED REPORT Exam: Resting ECG HR:70 bpm ECG Measurements Heart Rate 70 AXES HI 143 P 61 QRSd 89 QRS 83 QT 384 T 63 QTc 405 Conclusion SINUS RHYTHM WITH MARKED SINUS ARRHYTHMIA NONSPECIFIC T-WAVE ABNORMALITY BORDERLINE ECG UNCONFIRMED REPORT Electronically signed by : Rashard Mcmahan MD 01/10/2022 18:41:42
[2022-01-09 20:27] VITALS: BP 118/74; PULSE 88; RESP 14; TEMP 36.8; O2SAT 99; BMI 21.2
--- NOTE | 2022-01-09 20:35 | XR_ITS ---
PROCEDURE INFORMATION: Exam: XR Chest Exam date and time: 01/09/2022 8:35 PM Age: 26 years old Clinical indication: Sternal or substernal pain; Additional info: Chest pain TECHNIQUE: Imaging protocol: XR of the chest. Views: 2 views. COMPARISON: CT ABDOMEN PELVIS W CON 06/01/2020 9:00 PM FINDINGS: Lungs: Lungs are clear. Pleural spaces: No pleural effusion. No pneumothorax. Heart/Mediastinum: Cardiomediastinal silouhette is within normal limits. Bones/joints: No acute osseous abnormality. Soft tissues: Unremarkable. IMPRESSION: No acute findings.
[2022-01-09 20:49] LABS: Basophils # 0.2 K/mm3 (0-0.2); Basophils % 3.5 % (0.1-2.0); Eosinophils # 0.1 K/mm3 (0.0-0.4); Hematocrit 46.4 % (37.0-47.0); Hemoglobin 15.9 g/dL (12.2-16.2); Lymphocytes # 2.2 K/mm3 (0.7-4.5); Mean Corpuscular HGB Conc 34.3 g/dL (31.8-35.4); Mean Corpuscular Hemoglobin 29.1 pg (27.0-31.2); Mean Platelet Volume 9.1 fl (7.4-10.4); Monocytes # 0.3 K/mm3 (0.1-1.0); Monocytes % 4.4 % (1.7-9.3); Platelet Count 196 K/mm3 (142-424); Red Blood Count 5.46 M/mm3 (4.20-5.40); White Blood Count 5.7 K/mm3 (4.8-10.8)
[2022-01-09 21:00] VITALS: BP 109/67; PULSE 68; RESP 9; O2SAT 96
[2022-01-09 21:03] LABS: Chloride 104 mmol/L (98-107); Sodium 137 mmol/L (136-145)
[2022-01-09 21:04] LABS: Potassium 3.7 mmoL/L (3.5-5.1)
--- NOTE | 2022-01-09 21:04 | HMH.EDARPALP ---
ED Disposition Clinical Impression: Heart palpitations Disposition: Home, Self-Care Condition on Discharge: Good Instructions: DI for Palpitations Additional Instructions: see card for follow up nathalia Referrals: Provider,Tyra, [Primary Care Provider] - Cristi Dobbs MD [Staff Physician] - - Critical Care Critical Care Time: No Attestation: On 01/09/22, the high probability of a clinically significant, sudden or life threatening deterioration of the following system(s) required my full and direct attention, intervention and personal management. The time I documented below is in addition to time spent performing reported procedures but includes the following listed in this critical care notation. Medical Decision Making - Medical Records Medical records reviewed: Yes: I reviewed the patient's medical records. - Primo Inquiry Pt receiving controlled substance: No Vital Signs: 01/09/22 20:27 Temperature 98.3 F Temperature Source Oral Pulse Rate [Left Radial] 88 Respiratory Rate 14 Blood Pressure [Right Arm] 118/74 Blood Pressure Mean [Right Arm] 88 Blood Pressure Position [Right Arm] Sitting 02 Sat by Pulse Oximetry 99 Oxygen Delivery Method Room Air - Lab Data Lab results reviewed: Yes: I reviewed the patient's lab results. Lab Results 01/09/22 20:34: Total Bilirubin 0.4, Direct Bilirubin 0.0, Conjugated Bilirubin 0.0, Indirect Bilirubin 0.4, Unconjugated Bilirubin 0.3, AST 22, ALT 15, Alkaline Phosphatase 52, Total Protein 7.5, Albumin 4.6 01/09/22 20:39: WBC 5.7, RBC 5.46 H, Hgb 15.9, Hct 46.4, MCV 85.0, MCH 29.1, MCHC 34.3, RDW 13.0, Plt Count 196, MPV 9.1, Neut % (Auto) 52.0, Lymph % (Auto) 38.0, [place] % (Auto) 4.4, Eos % (Auto) 2.0, Baso % (Auto) 3.5 H, Neut # (Auto) 3.0, Lymph # (Auto) 2.2, [place] # (Auto) 0.3, Eos # (Auto) 0.1, Baso # (Auto) 0.2 01/09/22 20:39: Troponin I < 0.01, C-Reactive Protein < 0.3, TSH 1.93 01/09/22 20:39: ESR 8 01/09/22 20:39: Procalcitonin 0.040, Thyroxine (T4) 7.1 01/09/22 20:39: Sodium 137, Potassium 3.7, Chloride 104, Carbon Dioxide 26, Anion Gap 10.7, BUN 11, Creatinine 0.90, Estimated Creat Clear 81, Estimated GFR 76, Est GFR ( Amer) 92, Glucose 107 H, Calcium 9.7, Magnesium 1.9 01/09/22 21:04: Urine Color Yellow, Urine Appearance Cloudy, Urine pH 7.0, Ur Specific [place] 1.020, Urine Protein Trace, Urine Glucose (UA) Negative, Urine Ketones Negative, Urine Blood 3+, Urine Nitrate Negative, Urine Bilirubin Negative, Urine Urobilinogen 1.0, Ur Leukocyte Esterase Negative 01/09/22 21:04: Urine HCG, Qual Negative Result diagrams: 01/09/22 20:39 01/09/22 20:39 Orders (Tests/Meds): ED MEDICATIONS Generic Name Dose Route Start Last Admin Trade Name Freq PRN Reason Stop Dose Admin Sodium Chloride 1,000 mls @ 999 mls/hr 01/09/22 20:45 01/09/22 21:15 Sod Chlor 0.9% 1000ml Bag IV 01/09/22 21:45 999 mls/hr .Q1H1M NAYAN Administration ORDERS Category Date Time Status Troponin I Q3H Lab 01/09/22 23:45 Ordered Troponin I Q3H Lab 01/10/22 02:45 Ordered UA [Urinalysis and Microscopic] Stat Lab 01/09/22 21:04 Results UDS [Drug Screen,Urine] Stat Lab 01/09/22 21:04 Received - Radiology Data #1 Image(s): Chest Image Reviewed: Yes I have reviewed radiologist's interpretation Preliminary Findings: Normal/NAD - ECG Data Tracing #1 Normal Sinus Rhythm: Yes Ischemic changes: non-specific ST-T wave changes - ARBEN Score for Non-Stemi Age of Patient: <30 years old Heart Rate: 70-89 bpm Systolic Blood Pressure: 100-119 mmHg Serum Creatinine: 0.80-1.19 mg/dl CHF [place] Class: I-No CHF Other Risk Factors: None Non-Stemi Risk Score: 59 Medical Decision Narrative: stable exam and labs with possible mvp or other card dis and will refer to card Arrhythmia/Palpitations HPI - General Chief Complaint: Chest Pain Stated Complaint: CHEST FLUTTERS Time Seen by Provider: 01/09/22 20:45 Mode of Arrival: Ambulatory Source of
[2022-01-09 21:07] LABS: Anion Gap 10.7 mEq/L (5-15); Blood Urea Nitrogen 11 mg/dl (7-17); Calcium 9.7 mg/dl (8.4-10.2); Carbon Dioxide 26 mmol/L (22.0-30.0); Creatinine Clearance Estimated 81 mL/min (50-200); Estimated Glomerular Filt Rate 76 ml/min (>60); GFR (African American) 92 ML/MIN (>60); Glucose 107 mg/dl (74-100); Magnesium 1.9 mg/dl (1.6-2.3)
[2022-01-09 21:14] LABS: C-Reactive Protein < 0.3 mg/L (0-4)
[2022-01-09 21:22] LABS: Troponin I < 0.01 ng/ml (0.00-0.034)
[2022-01-09 21:26] LABS: T4 (Thyroxine) 7.1 ug/dl (5.53-11.0)
[2022-01-09 21:30] VITALS: BP 100/75; PULSE 52; RESP 14; O2SAT 99
[2022-01-09 21:30] LABS: Alanine Aminotransferase 15 U/L (12-78); Albumin Level 4.6 g/dl (3.5-5.0); Alkaline Phosphatase 52 U/L (38-126); Aspartate Amino Transferase 22 U/L (14-36); Bilirubin,Indirect 0.4 mg/dL (0.0-0.9); Bilirubin,Total 0.4 mg/dl (0.2-1.3); Bilirubin,Unconjugated 0.3 mg/dL (0.0-1.1); Total Protein,Serum 7.5 g/dl (6.3-8.2)
[2022-01-09 21:35] LABS: Microscopic, Urine URINE MICROSCOPIC (MICROSCOPIC)
[2022-01-09 21:39] LABS: Thyroid Stimulating Hormone 1.93 uIU/mL (0.465-4.68)
[2022-01-09 21:58] LABS: Erythrocyte Sedimentation Rate 8 mm/hr (0-20)
[2022-01-09 22:00] VITALS: BP 93/71; RESP 10; O2SAT 99
[2022-01-09 22:00] LABS: Appearance,Urine CLOUDY (Clear); Bilirubin,Urine Negative (Negative); Blood, Urine 3+ (Negative); Color,Urine YELLOW (Yellow); Glucose,Urine (UA) Negative (Negative); Ketones,Urine Negative (Negative); Leukocyte Esterase,Urine Negative (Negative); Nitrate,Urine Negative (Negative); Protein,Urine TRACE (Negative)
[2022-01-09 22:02] LABS: Urine Pregnancy, HCG Qual. Negative (Negative)
[2022-01-09 22:10] LABS: Benzodiazepines Screen,Urine Negative ng/ml (<200)
[2022-01-09 22:11] LABS: Amphetamine/Metha Screen,Urine Negative ng/ml (<1000); Barbiturates Screen,Urine Negative ng/ml (<200)
[2022-01-09 22:12] LABS: Cannabinoid Screen,Urine Negative ng/ml (<50)
[2022-01-09 22:13] LABS: Cocaine Screen,Urine Negative ng/ml (<300); Methadone Screen,Urine Negative ng/ml (<300)
[2022-01-09 22:14] LABS: Opiate Screen,Urine Negative ng/ml (<300); Phencyclidine Screen,Urine Negative ng/ml (<25)
[2022-01-09 22:15] LABS: Bacteria,Urine 1+ /lpf
[2022-01-09 22:24] VITALS: BP 93/71; PULSE 75; RESP 18; TEMP 36.7; O2SAT 99
== END 2022-01-09 22:25 | disposition home or self-care (01) ==
PROVIDERS: Emergency Provider Emergency Medicine
DX: R00.2 Palpitations (principal); Z79.899 Other long term (current) drug therapy; Z88.2 Allergy status to sulfonamides; Z87.891 Personal history of nicotine dependence; Z80.9 Family history of malignant neoplasm, unspecified; Z82.3 Family history of stroke; Z83.49 Family history of other endocrine, nutritional and metabolic diseases; Z82.49 Family history of ischemic heart disease and other diseases of the circulatory system; Z83.438 Family history of other disorder of lipoprotein metabolism and other lipidemia; Z82.5 Family history of asthma and other chronic lower respiratory diseases
CPT/HCPCS: 71046; 80048; 80076; 80305; 81001; 81025; 83735; 84145; 84436; 84443; 84484; 85025; 85651; 86140; 93005; 96365; 99284

== ENCOUNTER 2022-02-23 13:00 | Emergency (ER) | payer MEDICAID, SELFPAY ==
[2022-02-23 13:01] VITALS: BP 100/67; PULSE 107; RESP 20; TEMP 36.7; O2SAT 98; BMI 20.5
[2022-02-23 13:28] LABS: UTC Strep Screen (Rapid) Negative (Negative)
--- NOTE | 2022-02-23 13:43 | HMH.EDUTC ---
[facility] [place] Disposition Clinical Impression: Viral syndrome, Exposure to COVID-19 virus, Abscess of skin of neck, Skin lesion of breast Left otitis media Qualifiers: Otitis media type: suppurative Chronicity: acute Recurrence: non-recurrent Spontaneous tympanic membrane rupture: without spontaneous rupture Qualified Code(s): H66.002 - Acute suppurative otitis media without spontaneous rupture of ear drum, left ear Disposition: Home, Self-Care Condition on Discharge: Good Instructions: DI for COVID-19 (Suspected or Confirmed ), Preventing the Spread of Coronavirus Discharge Instructions Additional Instructions: Drink plenty of fluids. Take tylenol or ibuprofen for pain or fever. Take the medications as directed. Follow up with your regular doctor. GO TO THE ER FOR ANY WORSENING SYMPTOMS Quarantine until you know the results of your covid-19 test. Notify your school or workplace of your results and follow their instructions regarding return to work/school. Follow up with Dr. Herring (dermatology) regarding your skin tag on your breast. Her phone number will be on this paper work. Her work excuse needs to count for 02/22 also. Prescriptions: Albuterol Sulfate [Albuterol Sulfate Hfa] 2 puffs IH Q6HP PRN 30 Days #1 each PRN Reason: Shortness Of Breath Transmission Status: Pending to [email or web address] Brompheniramine/Pseudoephed/Dm [Bromfed Dm Cough Syrup] 5 ml PO Q6HP PRN #240 ml PRN Reason: Cough Transmission Status: Pending to [facility] Ondansetron [Zofran 4mg ODT] 4 mg PO Q8HP PRN #12 tab PRN Reason: Nausea Transmission Status: Sent to [facility] Amoxicillin [Amoxicillin 500mg Tab] 500 mg PO TID 10 Days #30 tab Transmission Status: Pending to [email or web address] Mupirocin [Bactroban 2% Ointment 22gm tube] 1 applicatio TP TID 7 Days #1 gm Transmission Status: Pending to [facility] Referrals: Provider,Tyra, [Primary Care Provider] - Herlinda Herring MD [Referring] - Forms: Work/School Release Time of Disposition: 13:59 Medical Decision Making - Medical Records Medical records reviewed: No: I reviewed the patient's medical records. - Primo Inquiry Pt receiving controlled substance: No Vital Signs: 02/23/22 13:01 Temperature 98.0 F Temperature Source Oral Pulse Rate [Radial] 107 H Respiratory Rate 20 Blood Pressure [Right Arm] 100/67 L Blood Pressure Mean [Right Arm] 78 02 Sat by Pulse Oximetry 98 Oxygen Delivery Method Room Air - Lab Data Lab results reviewed: Yes: I reviewed the patient's lab results. Lab Results 02/23/22 13:12: Strep Scn Rapid Clinic Negative Orders (Tests/Meds): ORDERS Category Date Time Status Covid-19 Nasal PCR ([facility]) Routine Lab 02/23/22 13:13 Received Strep Screen Confirmation Stat Micro 02/23/22 13:12 Received [facility] UTC HPI - General Stated complaint: sore throat, runny nose, head congestion, nausea Time Seen by Provider: 02/23/22 13:43 Mode of Arrival: Ambulatory Source of Information: Patient Limitations: No Limitations Description of Symptoms (Recalled from Triage Doc. by RN): SORE THROAT, STUFFY NOSE, FEVER, BODY ACHES AND WEAKNESS HEENT Symptoms (Recalled from RN notes): Yes Resp Symptoms (Recalled from RN notes): No Skin Symptoms (Recalled from RN notes): No MS Symptoms (Recalled from RN notes): No Functional Status (Recalled from RN notes): N/A - History of Present Illness Provider Complaint: She states that for the past 3 days she has had chest congestion, sore throat, chills and she has felt bad. Her little brother currently has covid-19. She has a history of asthma, but she denies any shortness of breath at this time. - Related Data Home Medications Medication Instructions Recorded Confirmed PARoxetine HCl [Paxil] 1 tab PO DAILY 01/09/22 01/09/22 Previous Rx's Medication Instructions Recorded Albuterol Sulfate [Albuterol 2 puffs IH Q6HP PRN 30 Days
[2022-02-23 14:10] VITALS: BP 100/67; PULSE 100; RESP 18; TEMP 36.7; O2SAT 98
== END 2022-02-23 14:11 | disposition home or self-care (01) ==
PROVIDERS: Emergency Provider Nurse Practitioner Family
DX: U07.1 COVID-19 (principal); H66.002 Acute suppurative otitis media without spontaneous rupture of ear drum, left ear
CPT/HCPCS: 87880; 99212; C9803; G0463; U0003; U0005

== ENCOUNTER 2022-03-08 16:23 | Emergency (ER) | payer MEDICAID, SELFPAY ==
[2022-03-08 16:34] VITALS: BP 111/68; PULSE 90; RESP 16; TEMP 36.9; O2SAT 95; BMI 18.8
[2022-03-08 16:46] LABS: Apearance,Urine Clear (Clear); Color,Urine Yellow (Yellow)
[2022-03-08 16:47] LABS: Bilirubin,Urine Negative (Negative); Blood, Urine 2+ (Negative); Glucose,Urine (UA) Negative (Negative); Ketones,Urine Negative (Negative); Protein,Urine Negative (Negative); Specific Gravity, Urine 1.025 (1.005-1.030); UTC Leukocyte Esterase,Urine Trace (Negative); UTC Nitrate,Urine Negative (Negative); Urobilinogen,Urine 0.2 EU/dl (0.2)
--- NOTE | 2022-03-08 17:04 | HMH.EDUTC ---
[facility] [place] Clinical Impression: UTI (urinary tract infection) Qualifiers: Urinary tract infection type: site unspecified Hematuria presence: with hematuria Qualified Code(s): N39.0 - Urinary tract infection, site not specified Disposition: Home, Self-Care Condition on Discharge: Good Instructions: Urine Culture, DI for Urinary Tract Infection (UTI), Phenazopyridine Additional Instructions: Drink plenty of fluids. Take tylenol or ibuprofen for pain or fever. Take the medications as directed. Follow up with your regular doctor. GO TO THE ER FOR ANY WORSENING SYMPTOMS The pyridium will make your urine turn orange, this is an expected side effect. It will stain your clothes if it comes into contact with them. We will culture the urine. That will tell what bacteria is causing your infection and which antibiotics will treat it best. Sometimes the first antibiotic we prescribe turns out to not work against different bacteria. So, make sure you follow up within 3 days if you are not getting better. Prescriptions: Ondansetron [Zofran 4mg ODT] 4 mg PO Q8HP PRN #20 tab PRN Reason: Nausea Transmission Status: Received by [id number] Ciprofloxacin HCl [Cipro 500mg Tab] 500 mg PO BID 7 Days #14 tab Transmission Status: Received by [id number] Phenazopyridine HCl [Pyridium 200mg Tablet] 200 pow PO TID #6 tab Transmission Status: Received by [id number] Referrals: Provider,Referral, MD [Primary Care Provider] - Time of Disposition: 17:06 Medical Decision Making - Medical Records Medical records reviewed: No: I reviewed the patient's medical records. - Primo Inquiry Pt receiving controlled substance: No Vital Signs: 03/08/22 16:34 03/08/22 17:09 Temperature 98.4 F 98.4 F Temperature Source Oral Pulse Rate 90 Pulse Rate [Left] 90 Respiratory Rate 16 16 Blood Pressure 111/68 Blood Pressure [Right Arm] 111/68 Blood Pressure Mean [Right Arm] 82 02 Sat by Pulse Oximetry 95 - Lab Data Lab results reviewed: Yes: I reviewed the patient's lab results. Lab Results 03/08/22 16:43: Urine Color Yellow, Urine Appearance Clear, Urine pH 6.0, Ur Specific [place] 1.025, Urine Protein Negative, Urine Glucose (UA) Negative, Urine Ketones Negative, Urine Blood 2+, Urine Nitrate Negative, Urine Bilirubin Negative, Urine Urobilinogen 0.2, Ur Leukocyte Esterase Trace Orders (Tests/Meds): ORDERS Category Date Time Status Urine Culture Stat Micro 03/08/22 16:43 Ordered [facility] [place]PI - General Stated complaint: Possible UTI Time Seen by Provider: 03/08/22 17:04 Mode of Arrival: Ambulatory Source of Information: Patient Limitations: No Limitations Description of Symptoms (Recalled from Triage Doc. by RN): patient comes in for possible uti. symptoms began yesterday and include burning and pressure with urination. HEENT Symptoms (Recalled from RN notes): No Resp Symptoms (Recalled from RN notes): No Skin Symptoms (Recalled from RN notes): No MS Symptoms (Recalled from RN notes): No Functional Status (Recalled from RN notes): n/a - History of Present Illness Provider Complaint: She states that for the past 2 days she has had dysuria, urinary frequency and low back pain. She denies fever but she has not had any documented fever. - Related Data Home Medications Medication Instructions Recorded Confirmed PARoxetine HCl [Paxil] 1 tab PO DAILY 01/09/22 01/09/22 Previous Rx's Medication Instructions Recorded Albuterol Sulfate [Albuterol 2 puffs IH Q6HP PRN 30 Days #1 each 02/23/22 Sulfate Hfa] Amoxicillin [Amoxicillin 500mg Tab] 500 mg PO TID 10 Days #30 tab 02/23/22 Brompheniramine/Pseudoephed/Dm 5 ml PO Q6HP PRN #240 ml 02/23/22 [Bromfed Dm Cough Syrup] Mupirocin [Bactroban 2% Ointment 1 applicatio TP TID 7 Days #1 gm 02/23/22 22gm tube] Ondansetron [Zofran 4mg ODT] 4 mg PO Q8HP PRN #12 tab 02/23/22 Ciprofloxacin HCl [Cipr
[2022-03-08 17:09] VITALS: BP 111/68; PULSE 90; RESP 16; TEMP 36.9
== END 2022-03-08 17:10 | disposition home or self-care (01) ==
PROVIDERS: Emergency Provider Nurse Practitioner Family
DX: N39.0 Urinary tract infection, site not specified (principal); B96.20 Unspecified Escherichia coli [E. coli] as the cause of diseases classified elsewhere; R31.9 Hematuria, unspecified
CPT/HCPCS: 81003; 87086; 87088; 87186; 99212; G0463

== ENCOUNTER 2022-03-14 16:21 | Emergency (ER) | payer MEDICAID, SELFPAY ==
[2022-03-14 17:03] VITALS: BP 100/44; PULSE 82; RESP 16; TEMP 36.8; O2SAT 96; BMI 19.5
--- NOTE | 2022-03-14 17:22 | HMH.EDUTC ---
[facility] – [place] Disposition Clinical Impression: Diarrhea Qualifiers: Diarrhea type: unspecified type Qualified Code(s): R19.7 - Diarrhea, unspecified Disposition: Home, Self-Care Condition on Discharge: Good Instructions: Diarrhea Additional Instructions: Drink plenty of fluids. Take tylenol or ibuprofen for pain or fever. Take the medications as directed. Follow up with your regular doctor. GO TO THE ER FOR ANY WORSENING SYMPTOMS Return a stool sample back here to the lab if your symptoms continue until tomorrow. Prescriptions: Bismuth Subsalicylate [Kaopectate] 30 ml PO BIDP PRN #240 ml PRN Reason: Diarrhea Transmission Status: Received by [facility] Referrals: Provider,Referral, [Primary Care Provider] - Time of Disposition: 17:25 Medical Decision Making - Medical Records Medical records reviewed: No: I reviewed the patient's medical records. - Primo Inquiry Pt receiving controlled substance: No Vital Signs: 03/14/22 17:03 03/14/22 17:30 Temperature 98.2 F 98.2 F Temperature Source Oral Pulse Rate 82 Pulse Rate [Left] 82 Respiratory Rate 16 16 Blood Pressure 100/44 L Blood Pressure [Right Arm] 100/44 L Blood Pressure Mean [Right Arm] 62 02 Sat by Pulse Oximetry 96 [facility] [place] HPI - General Stated complaint: Diarrhea Time Seen by Provider: 03/14/22 17:05 Mode of Arrival: Ambulatory Source of Information: Patient Limitations: No Limitations Description of Symptoms (Recalled from Triage Doc. by RN): patient comes in with complaints of diarrhea, symptoms began sunday. patient states that she ate at a restaurant this sunday and has had diarrhea since then HEENT Symptoms (Recalled from RN notes): No Resp Symptoms (Recalled from RN notes): No Skin Symptoms (Recalled from RN notes): No MS Symptoms (Recalled from RN notes): No Functional Status (Recalled from RN notes): n/a - History of Present Illness Provider Complaint: She states that she has had diarrhea for the past 4 days. She denies vomiting, but she has had some nausea at times. - Related Data Home Medications Medication Instructions Recorded Confirmed PARoxetine HCl [Paxil] 1 tab PO DAILY 01/09/22 01/09/22 Previous Rx's Medication Instructions Recorded Albuterol Sulfate [Albuterol 2 puffs IH Q6HP PRN 30 Days #1 each 02/23/22 Sulfate Hfa] Amoxicillin [Amoxicillin 500mg Tab] 500 mg PO TID 10 Days #30 tab 02/23/22 Brompheniramine/Pseudoephed/Dm 5 ml PO Q6HP PRN #240 ml 02/23/22 [Bromfed Dm Cough Syrup] Mupirocin [Bactroban 2% Ointment 1 applicatio TP TID 7 Days #1 gm 02/23/22 22gm tube] Ondansetron [Zofran 4mg ODT] 4 mg PO Q8HP PRN #12 tab 02/23/22 Ciprofloxacin HCl [Cipro 500mg 500 mg PO BID 7 Days #14 tab 03/08/22 Tab] Ondansetron [Zofran 4mg ODT] 4 mg PO Q8HP PRN #20 tab 03/08/22 Phenazopyridine HCl [Pyridium 200 pow PO TID #6 tab 03/08/22 200mg Tablet] Bismuth Subsalicylate [Kaopectate] 30 ml PO BIDP PRN #240 ml 03/14/22 Allergies Allergy/AdvReac Type Severity Reaction Status Date / Time Sulfa (Sulfonamide Allergy Verified 03/14/22 17:07 Antibiotics) - Worker's Comp Is this a Worker's Comp case?: No [facility] History - Hepatitis A Screen Attestation statement:: This patient has been screened for Hepatitis A risk factors. I have reviewed the patient's past medical history: Yes Medical History: Denies:: Cancer, Diabetes Mellitus Type 1, Diabetes Mellitus Type 2, MRSA Laterality Cases: Bilateral: Tonsillectomy Other Surgeries: No: Amputation: No Fractures: No - Social History Smoking Status: Former smoker Tobacco Type: e-cigarettes # Packs/Day (cigarettes): 1 Alcohol Intake: never Alcohol Intake Frequency:: holidays/special occasions only Substance Use Type: denies use Occupational Status: employed Housing: house Family Hx:: Cancer, Diabetes, Heart Attack, Thyroid Disorder, Hypertension, Hyperlipidemia, Asthma ROS Obtained: Ryan
[2022-03-14 17:30] VITALS: BP 100/44; PULSE 82; RESP 16; TEMP 36.8
== END 2022-03-14 17:35 | disposition home or self-care (01) ==
PROVIDERS: Emergency Provider Nurse Practitioner Family
DX: R19.7 Diarrhea, unspecified (principal)
CPT/HCPCS: 99212; G0463

== ENCOUNTER 2022-03-25 13:14 | Emergency (ER) | payer MEDICAID, SELFPAY ==
[2022-03-25 13:35] VITALS: BP 106/71; PULSE 82; RESP 19; TEMP 37; O2SAT 99; BMI 19.5
[2022-03-25 13:53] LABS: UTC Strep Screen (Rapid) Negative (Negative)
--- NOTE | 2022-03-25 13:53 | HMH.EDUTC ---
[facility] [place] Clinical Impression: Strep pharyngitis Disposition: Home, Self-Care Condition on Discharge: Good Instructions: Strep Throat Additional Instructions: Start antibiotics today be sure to take it as ordered with the full length of time although you should start feeling better in 24-48 hours. Change toothbrush and toothpaste 24-48 hours after starting antibiotics Tylenol or Motrin as needed for fever or pain Encourage fluids, water, Gatorade, Powerade, try cold fluids, popsicles, ice cream will make it feel better You are contagious for 24 hours. Avoid kissing anyone, no eating or drinking after anyone. You are contagious. Follow-up the ER for new or worsening symptoms or no noticeable improvement over the next 24-48 hours. Follow-up with PCP this week. Prescriptions: Azithromycin [Zithromax 250mg tab] 250 mg PO DIRECTED #6 tab Transmission Status: Pending to [id number] Referrals: Provider,Referral, [Primary Care Provider] - Time of Disposition: 14:04 Medical Decision Making - Primo Inquiry Pt receiving controlled substance: No Vital Signs: 03/25/22 13:35 Temperature 98.6 F Temperature Source Oral Pulse Rate [Right Brachial] 82 Respiratory Rate 19 Blood Pressure [Right Arm] 106/71 L Blood Pressure Mean [Right Arm] 82 Blood Pressure Source [Right Arm] Automatic Cuff Blood Pressure Position [Right Arm] Sitting 02 Sat by Pulse Oximetry 99 Oxygen Delivery Method Room Air - Lab Data Lab Results 03/25/22 13:38: Strep Scn Rapid Clinic Negative Orders (Tests/Meds): ORDERS Category Date Time Status Strep Screen Confirmation Stat Micro 03/25/22 13:38 Received [facility] [place] HPI - General Chief complaint: [facility] Stated complaint: Sore throat, bodyaches, stuffy nose Time Seen by Provider: 03/25/22 13:59 Mode of Arrival: Ambulatory Source of Information: Patient Limitations: No Limitations Description of Symptoms (Recalled from Triage Doc. by RN): PATIENT C/O SORE THROAT, NASAL CONGESTION, SOA, AND BODY ACHES HEENT Symptoms (Recalled from RN notes): Yes Resp Symptoms (Recalled from RN notes): No Skin Symptoms (Recalled from RN notes): No MS Symptoms (Recalled from RN notes): No Functional Status (Recalled from RN notes): WNL - History of Present Illness Provider Complaint: 26 yr old female presnts for sore throat,body aches and congestion - Related Data Previous Rx's Medication Instructions Recorded Azithromycin [Zithromax 250mg 250 mg PO DIRECTED #6 tab 03/25/22 tab] Allergies Allergy/AdvReac Type Severity Reaction Status Date / Time Sulfa (Sulfonamide Allergy Verified 03/14/22 17:07 Antibiotics) - Worker's Comp Is this a Worker's Comp case?: No [facility] History - Hepatitis A Screen Attestation statement:: This patient has been screened for Hepatitis A risk factors. I have reviewed the patient's past medical history: Yes Medical History: Denies:: Cancer, Diabetes Mellitus Type 1, Diabetes Mellitus Type 2, MRSA Laterality Cases: Bilateral: Tonsillectomy Other Surgeries: No: Amputation: No Fractures: No - Social History Smoking Status: Former smoker Tobacco Type: e-cigarettes # Packs/Day (cigarettes): 1 Alcohol Intake: never Alcohol Intake Frequency:: holidays/special occasions only Substance Use Type: denies use Occupational Status: employed Housing: house Family Hx:: Cancer, Diabetes, Heart Attack, Thyroid Disorder, Hypertension, Hyperlipidemia, Asthma ROS Obtained: Yes Systems reviewed as appropriate & no additional complaints - Constitutional Constitutional: Reports system reviewed and no additional complaints, except as docu, Reports body ache, Reports fever(s) - Eyes Eyes: Reports system reviewed and no additional complaints, except as docu, Denies loss of peripheral vision - ENT Ears, Nose, Mouth, and Throat: Reports system reviewed and no additional complaints, except as docu,
[2022-03-25 14:06] VITALS: BP 106/71; PULSE 82; RESP 19; TEMP 37; O2SAT 99
== END 2022-03-25 14:10 | disposition home or self-care (01) ==
PROVIDERS: Emergency Provider Nurse Practitioner Family
DX: J02.0 Streptococcal pharyngitis (principal)
CPT/HCPCS: 87880; 99212; G0463

== ENCOUNTER 2022-04-22 03:50 | Emergency (ER) | payer MEDICAID, SELFPAY ==
[2022-04-22 03:51] VITALS: BP 119/65; PULSE 103; RESP 16; TEMP 36.8; O2SAT 98; BMI 20.3
--- NOTE | 2022-04-22 04:08 | PC.NURSE ---
AFTER TRIAGE- PT REPORTS THAT SHE HAS INTERMITT CRAMPING.
--- NOTE | 2022-04-22 04:11 | PC.NURSE ---
PT AWARE OF NEED FOR URINE SPECIMEN AND STOOL SPECIMEN.
[2022-04-22 04:12] LABS: Microscopic, Urine URINE MICROSCOPIC (MICROSCOPIC)
--- NOTE | 2022-04-22 04:16 | CT_ITS ---
PROCEDURE INFORMATION: Exam: CT Abdomen And Pelvis With Contrast Exam date and time: 04/22/2022 4:37 AM Age: 26 years old Clinical indication: Abdominal pain; Generalized; Additional info: Abd pain, n/v/d TECHNIQUE: Imaging protocol: Computed tomography of the abdomen and pelvis with contrast. Radiation optimization: All CT scans at this facility use at least one of these dose optimization techniques: automated exposure control; mA and/or kV adjustment per patient size (includes targeted exams where dose is matched to clinical indication); or iterative reconstruction. Contrast material: ISOVUE; Contrast volume: 75 ml; Contrast route: IV; COMPARISON: CT ABDOMEN PELVIS W CON 06/01/2020 9:00 PM FINDINGS: Liver: No acute findings. No mass. Gallbladder and bile ducts: No acute findings, calcified stones or ductal dilation. Pancreas: No acute findings, focal abnormality or ductal dilation. Spleen: No splenomegaly or focal abnormality. Adrenal glands: Normal. No mass. Kidneys and ureters: Kidneys enhance normally. No obstructive uropathy. Stomach and bowel: No obstruction. No mucosal thickening. Normally distended fluid-filled colon suggestive of diarrheal disease. Appendix: No evidence of appendicitis. Intraperitoneal space: No free air. No significant fluid collection. Vasculature: No abdominal aortic aneurysm. Lymph nodes: No pathologically enlarged lymph nodes. Urinary bladder: Unremarkable as visualized. Reproductive: IUD in the uterus. Bones/joints: No acute fracture. Soft tissues: No acute findings. IMPRESSION: Fluid-filled colon suggestive of nonspecific diarrheal disease.
[2022-04-22 04:20] LABS: Appearance,Urine CLOUDY (Clear); Blood, Urine 2+ (Negative); Color,Urine YELLOW (Yellow); Glucose,Urine (UA) Negative (Negative); Ketones,Urine Negative (Negative); Leukocyte Esterase,Urine TRACE (Negative); Nitrate,Urine Negative (Negative); PH,Urine 5.5 (5.0-8.5); Protein,Urine Negative (Negative); Specific Gravity, Urine >= 1.030 (1.005-1.030); Urobilinogen,Urine 0.2 EU/dl (0.2)
[2022-04-22 04:25] LABS: Bilirubin,Urine Negative (Negative)
[2022-04-22 04:26] LABS: Amorphous Sediment,Urine Trace /lpf; Bacteria,Urine Trace /lpf; Mucus,Urine Trace /lpf; Squamous Epithelial Cell,Urine 20-50 #/hpf (0-5); WBC,Urine Occasional #/hpf (0-3)
[2022-04-22 04:28] LABS: Urine Pregnancy, HCG Qual. Negative (Negative)
[2022-04-22 04:34] LABS: Basophils # 0.2 K/mm3 (0-0.2); Basophils % 1.3 % (0.1-2.0); Eosinophils # 0.2 K/mm3 (0.0-0.4); Eosinophils % 1.3 % (0.1-12.0); Hematocrit 50.4 % (37.0-47.0); Lymphocytes # 1.3 K/mm3 (0.7-4.5); Mean Corpuscular HGB Conc 33.8 g/dL (31.8-35.4); Mean Corpuscular Hemoglobin 29.2 pg (27.0-31.2); Mean Corpuscular Volume 86.6 fl (81-99); Mean Platelet Volume 9.3 fl (7.4-10.4); Monocytes # 0.5 K/mm3 (0.1-1.0); Monocytes % 3.7 % (1.7-9.3); Neutrophils # 10.8 K/mm3 (1.8-7.8); Neutrophils % 83.6 % (37.0-80.0); Platelet Count 256 K/mm3 (142-424); Red Blood Count 5.81 M/mm3 (4.20-5.40); Red Cell Distribution Width 12.9 % (11.5-17.5); White Blood Count 12.9 K/mm3 (4.8-10.8)
[2022-04-22 04:45] LABS: Alanine Aminotransferase 17 U/L (12-78); Albumin Level 4.5 g/dl (3.5-5.0); Albumin/Globulin Ratio 1.6 (1.1-1.8); Alkaline Phosphatase 79 U/L (38-126); Amylase 102 U/L (30-110); Aspartate Amino Transferase 20 U/L (14-36); Bilirubin,Total 0.5 mg/dl (0.2-1.3); Blood Urea Nitrogen 11 mg/dl (7-17); Calcium 9.1 mg/dl (8.4-10.2); Carbon Dioxide 20 mmol/L (22.0-30.0); Chloride 105 mmol/L (98-107); Creatinine Clearance Estimated 88 mL/min (50-200); Estimated Glomerular Filt Rate 87 ml/min (>60); GFR (African American) 105 ML/MIN (>60); Globulin 2.8 g/dL (1.3-3.2); Glucose 127 mg/dl (74-100); Lipase 95 U/L (23-300); Sodium 140 mmol/L (136-145); Total Protein,Serum 7.3 g/dl (6.3-8.2)
[2022-04-22 05:02] LABS: Procalcitonin 0.042 ng/mL (0.0-2.0)
[2022-04-22 05:16] LABS: Adenovirus F 40/41, stool Not Detected (NotDetected); Astrovirus Not Detected (NotDetected); Campylobacter Not Detected (NotDetected); Clostridium Difficile A/B, PCR Not Detected (NotDetected); Cryptosporidium Not Detected (NotDetected); Cyclospora Cayetanesis Not Detected (NotDetected); Entamoeba histolytica Not Detected (NotDetected); Enteroaggregative E coli Not Detected (NotDetected); Enteropathogenic E coli Not Detected (NotDetected); Enterotoxigenic E coli Not Detected (NotDetected); Giardia lamblia Not Detected (NotDetected); Plesimonas Shigalloides, PCR Not Detected (NotDetected); Rotavirus A Not Detected (NotDetected); Salmonella, PCR Not Detected (NotDetected); Sapovirus Not Detected (NotDetected); Shiga-like toxin E coli Not Detected (NotDetected); Shigella Enterovasive E coli Not Detected (NotDetected); Vibrio Cholerae Not Detected (NotDetected); Vibrio, PCR Not Detected (NotDetected); Yersinia Entercolitica, PCR Not Detected (NotDetected)
[2022-04-22 05:48] VITALS: BP 96/53; PULSE 101; O2SAT 99
--- NOTE | 2022-04-22 05:52 | PC.NURSE ---
NO ACUTE DISTRESS NOTED. WCM.
--- NOTE | 2022-04-22 06:06 | PC.NURSE ---
NO CHANGES IN ASSMNT. PT ENCOURAGED TO LEAVE BP CUFF IN PLACE. WCM.
--- NOTE | 2022-04-22 06:33 | PC.NURSE ---
call to radiology for follow up on CT reading
--- NOTE | 2022-04-22 06:34 | PC.NURSE ---
call from radiology, LORETTA is currently reading CT at this time
[2022-04-22 07:07] LABS: Norovirus Detected (NotDetected)
--- NOTE | 2022-04-22 07:12 | HMH.EDNVD ---
Discharge Plan Disposition Patient Disposition: Home, Self-Care Prescriptions Prescriptions: New ondansetron HCl 4 mg Tablet 4 mg PO Q8H PRN (Reason: Nausea) Qty: 20 0RF Referrals Follow up/Referrals: Provider,Referral, [Primary Care Provider] - See instructions Clinical Impressions Clinical Impression: Enteritis due to Norovirus Instructions Patient Instructions: DI for Norovirus Infection Discharge ED Provider: Farhad Cabrera Nausea/Vomiting/Diarrhea HPI General Chief complaint: Nausea/Vomiting/Diarrhea Stated complaint: Vomiting and diarrhea, sweaty and shaky, cramps Time Seen by Provider: 04/22/22 04:00 Mode of Arrival: Ambulatory Source of Information: Patient and Medical Record Limitations: No Limitations Description of Symptoms (Recalled from ER Triage Doc. by RN): PT BEGAN HAVING N/V/D AROUND 1 A.M. - PT DENIES ALCOHOL USE AND REPORTS THAT SHE HAD [employer] FOR DINNER. History of Present Illness HPI Narrative: pt with acute vomiting and diarrhea which started about 1 am complaint: nausea, vomiting and diarrhea Onset (ago): hour(s) Description of Vomiting: watery Location of pain: diffuse Severity: moderate Consistency: intermittent Context: possible food poisoning Associated symptoms: denies other symptoms Related Data Previous Rx's Medication Instructions Recorded ondansetron HCl 4 mg tablet 4 mg PO Q8H PRN Nausea #20 tabs 04/22/22 Allergies Allergy/AdvReac Type Severity Reaction Status Date / Time Sulfa (Sulfonamide Allergy Verified 03/14/22 17:07 Antibiotics) [facility] Medical History (Updated 04/22/22 @ 07:27 by Farhad Cabrera MD) No significant past medical history No significant past medical history Social History (Updated 04/22/22 @ 04:11 by Court Fletcher RN) Smoking Status: Current every day smoker tobacco type: e-cigarettes alcohol intake: never substance use type: denies use current occupational status: employed Travel in the last 8 weeks: None housing: house ROS Obtained: Yes All systems reviewed & no additional complaints except as documented Physical Exam General General appearance: alert and in no apparent distress Head Head exam: normocephalic Eye Eye exam: Present PERRL and EOMI; Absent scleral icterus ENT ENT exam: Present mucous membranes dry Neck Neck exam: Present full ROM and trachea midline Respiratory Respiratory exam: Present normal lung sounds bilaterally; Absent respiratory distress Cardiovascular Cardiovascular exam: Present regular rate; Absent systolic murmur Abdominal Exam Abdominal exam: Present soft and tenderness; Absent guarding Abdominal tenderness: Present diffuse and moderate Extremities Exam Extremities exam: Present full ROM Neurological Exam Neurological exam: Present alert, oriented X3 and CN II-XII intact Psychiatric Psychiatric exam: Present normal affect Skin Skin exam: Absent rash Medical Decision Making Medical Records Medical records reviewed: Yes I reviewed the patient's medical records. Primo Inquiry Pt receiving controlled substance: No Vital Signs: 04/22/22 03:51 04/22/22 05:48 Temperature 98.3 F Temperature Source Oral Pulse Rate 101 H Pulse Rate [Left Radial] 103 H Respiratory Rate 16 Blood Pressure 96/53 L Blood Pressure [Left Arm] 119/65 Blood Pressure Mean 72 Blood Pressure Mean [Left Arm] 83 Blood Pressure Source [Left Arm] Automatic Cuff Blood Pressure Position [Left Arm] Sitting 02 Sat by Pulse Oximetry 98 99 Oxygen Delivery Method Room Air Lab Data Lab results reviewed: Yes I reviewed the patient's lab results. Lab Results 04/22/22 03:56: Urine Color Yellow, Urine Appearance Cloudy, Urine pH 5.5, Ur Specific [place] >= 1.030, Urine Protein Negative, Urine Glucose (UA) Negative, Urine Ketones Negative, Urine Blood 2+, Urine Nitrate Negative, Urine Bilirubin Negative, Urine Urobilinogen 0.2, Ur Leukocyte Esterase Trace, Urine RBC 5-10,
--- NOTE | 2022-04-22 07:14 | PC.NURSE ---
Dr. Cabrera notified of diarrhea panel results.
[2022-04-22 07:23] VITALS: BP 110/72; PULSE 90; RESP 17; TEMP 36.9; O2SAT 99
== END 2022-04-22 07:30 | disposition home or self-care (01) ==
PROVIDERS: Emergency Provider Emergency Medicine
DX: R11.2 Nausea with vomiting, unspecified (principal); R19.7 Diarrhea, unspecified; R61 Generalized hyperhidrosis; F17.210 Nicotine dependence, cigarettes, uncomplicated; Z88.2 Allergy status to sulfonamides
CPT/HCPCS: 74177; 80053; 81001; 81025; 82150; 83690; 84145; 85025; 87507; 96361; 96374; 96375; 99285; J2405; Q9967

== ENCOUNTER 2022-05-11 09:51 | Emergency (ER) | payer MEDICAID, SELFPAY ==
[2022-05-11 10:10] VITALS: BP 110/74; PULSE 75; RESP 18; TEMP 36.9; O2SAT 98; BMI 19.2
[2022-05-11 10:32] LABS: UTC Strep Screen (Rapid) Negative (Negative)
--- NOTE | 2022-05-11 10:35 | EXP.UTC ---
Discharge Plan Disposition Patient Disposition: Home, Self-Care Condition: Good Prescriptions Prescriptions: New azithromycin [Zithromax Z-Ruslan] 250 mg tablet See Rx Instructions .ROUTE .COMPLEX 5 Days Qty: 6 0RF Rx Instructions: For 250 mg dose pack: take 500 mg today (day 1), then 250 mg for 4 days (days 2-5) Referrals Follow up/Referrals: Farhad Cabrera MD [Primary Care Provider] - See instructions Activity Restrictions/Add. Instructions Additional Instructions/Restrictions: *Monitor Temp, Over the counter Motrin or Tylenol as directed/as needed Tylenol every 4 hours and Motrin every 6 hours (as long as your family doctor has told you that you can take it) for fever or pain. and straight to ER if unable to lower temp less than 101.0 after medication given *Warm salt water gargles may help to soothe the throat *Throat Lozenges? *Warm fluids like tea with honey may help to soothe the throat? *Sleep elevated *Humidifier/Vaporizer Your throat swab was sent for culture. Those results are typically sent to your primary care. Be sure to follow up in 2-3 days with your family doctor/primary care physician if no improvement so they can review those result and treat if necessary. If you don?t have a primary care doctor, I recommend you get one but in the mean time, you will have to return to a walk in clinic Follow up IMMEDIATELY for new or worsening symptoms or no Noticeable improvement over the next 48-72 hours. 911 for difficulty breathing or swallowing You were tested for today for COVID19 your test result should be back in the next 24-48 hours, you may check your results on the [facility] My Health Portal Make sure to take your Vitamins Vit. C Vit D and Zinc if you can take them Clinical Impressions Clinical Impression: URI (upper respiratory infection) Instructions Patient Instructions: Sore Throat, DI for Sinusitis [place]charge ED [place] Mireya [place] [facility] [place] General Stated complaint: Sore throat, HILL, Congestion, Cough, SOA Mode of Arrival: Ambulatory Source of Information: Patient Limitations: No Limitations Time Seen by Provider: 05/11/22 10:35 Description of Symptoms (Recalled from Triage Doc. by RN): PATIENT C/O RUNNY NOSE, COUGH, WEAKNESS, FATIGUE, SOA AND BODY ACHES X 1 WEEK HEENT Symptoms (Recalled from RN notes): Yes Resp Symptoms (Recalled from RN notes): Yes Skin Symptoms (Recalled from RN notes): No MS Symptoms (Recalled from RN notes): No Functional Status (Recalled from RN notes): WNL History of Present Illness Provider Complaint: Patient states that she has been having cough, sinus congestion, runny nose fatigue, soa at times with cough and feeling achy for over a week States that today she was still feeling bad and daughter not feeling well so she came in to get them both checked Related Data Previous Rx's Medication Instructions Recorded azithromycin 250 mg tablet See Rx Instructions PO .COMPLEX 5 05/11/22 (Zithromax Z-Ruslan) days #6 tabs Allergies Allergy/AdvReac Type Severity Reaction Status Date / Time Sulfa (Sulfonamide Allergy Verified 03/14/22 17:07 Antibiotics) Worker's Comp Is this a Worker's Comp case?: No PFSH PFSH Medical History (Updated 05/11/22 @ 10:42 by Mireya Chambers APRN) Anxiety Asthma Depression Migraine Urinary tract infection Surgical History (Updated 05/11/22 @ 10:31 by Kassandra Jordan RN) History of tonsillectomy Social History (Updated 05/11/22 @ 10:32 by Kassandra Jordan RN) Smoking Status: Current every day smoker tobacco type: e-cigarettes alcohol intake: never substance use type: denies use current occupational status: employed Travel in the last 8 weeks: None housing: house ROS Obtained: Yes All systems reviewed & no additional complaints except as documented and Yes Systems reviewed as appropriate & no additional complaints except as documented Constitutional Constitut
[2022-05-11 10:48] VITALS: BP 110/74; PULSE 75; RESP 18; TEMP 36.9; O2SAT 98
[2022-05-11 10:48] LABS: Adenovirus,PCR Not Detected (NotDetected); Bordetella Pertussis Not Detected (NotDetected); Chlamydophila Pneumoniae, PCR Not Detected (NotDetected); Coronavirus 19, PCR Not Detected (NotDetected); Coronavirus 229E Not Detected (NotDetected); Coronavirus NL63 Not Detected (NotDetected); Coronavirus OC43 Not Detected (NotDetected); Coronovirus HKU1,PCR Not Detected (NotDetected); Human Metapneumovirus Not Detected (NotDetected); Influenza A, PCR Not Detected (NotDetected); Influenza AH1, 2009 Not Detected (NotDetected); Influenza AH1, PCR Not Detected (NotDetected); Influenza AH3,PCR Not Detected (NotDetected); Influenza B, PCR Not Detected (NotDetected); Mycoplasma Pneumoniae, PCR Not Detected (NotDetected); Parainfluenza 1, PCR Not Detected (NotDetected); Parainfluenza 2, PCR Not Detected (NotDetected); Parainfluenza 3, PCR Not Detected (NotDetected); Parainfluenza 4, PCR Not Detected (NotDetected); Respiratory Syncytial Virus Not Detected (NotDetected)
[2022-05-11 18:18] LABS: Rhinovirus/Enterovirus Detected (NotDetected)
== END 2022-05-11 10:50 | disposition home or self-care (01) ==
PROVIDERS: Emergency Provider Nurse Practitioner; PCP Emergency Medicine
DX: J06.9 Acute upper respiratory infection, unspecified (principal)
CPT/HCPCS: 87581; 87632; 87798; 87880; 99212; C9803; G0463; U0003; U0005

== ENCOUNTER 2022-06-25 15:58 | Emergency (ER) | payer MEDICAID, SELFPAY ==
[2022-06-25 18:05] VITALS: BP 111/71; PULSE 82; RESP 18; TEMP 36.9; O2SAT 97; BMI 21.2
--- NOTE | 2022-06-25 18:11 | EXP.UTC ---
Discharge Plan Disposition Patient Disposition: Home, Self-Care Condition: Good Prescriptions Prescriptions: New amoxicillin [amoxicillin] 500 mg tablet 500 mg PO TID 10 Days Qty: 30 0RF [id number] [Bromfed DM] 2-30-10 mg/5 mL Syrup 5 ml PO Q6H PRN (Reason: Cough) Qty: 240 0RF prednisone 10 mg tablet 10 mg PO BID 5 Days Qty: 10 0RF No Action azithromycin [Zithromax Z-Ruslan] 250 mg tablet See Rx Instructions .ROUTE .COMPLEX 5 Days Qty: 6 0RF Rx Instructions: For 250 mg dose pack: take 500 mg today (day 1), then 250 mg for 4 days (days 2-5) Referrals Follow up/Referrals: Farhad Cabrera MD [Primary Care Provider] - See instructions Activity Restrictions/Add. Instructions Additional Instructions/Restrictions: Drink plenty of fluids. Take tylenol or ibuprofen for pain or fever. Take the medications as directed. Follow up with your regular doctor. GO TO THE ER FOR ANY WORSENING SYMPTOMS Clinical Impressions Clinical Impression: Viral syndrome, Pharyngitis Discharge ED Provider: Lyndon Arias [facility] General Stated complaint: sore throat, cough, runny nose, [place] Time Seen by Provider: 06/25/22 18:11 History of Present Illness Provider Complaint: She states that for the past 2 days she has had sore throat, chills, body aches and low grade fever. Related Data Previous Rx's Medication Instructions Recorded azithromycin 250 mg tablet See Rx Instructions PO .COMPLEX 5 05/11/22 (Zithromax Z-Ruslan) days #6 tabs amoxicillin 500 mg tablet 500 mg PO TID 10 days #30 tabs 06/25/22 [id number] 5 ml PO Q6H PRN Cough #240 mL 06/25/22 2 mg-30 mg-10 mg/5 mL oral syrup (Bromfed DM) prednisone 10 mg tablet 10 mg PO BID 5 days #10 tabs 06/25/22 Allergies Allergy/AdvReac Type Severity Reaction Status Date / Time Sulfa (Sulfonamide Allergy Verified 06/25/22 18:12 Antibiotics) [facility] Medical History Anxiety Asthma Depression Migraine Urinary tract infection Surgical History History of tonsillectomy Social History Smoking Status: Current every day smoker tobacco type: e-cigarettes alcohol intake: never substance use type: denies use current occupational status: employed Travel in the last 8 weeks: None housing: house ROS Obtained: Yes All systems reviewed & no additional complaints except as documented Constitutional Constitutional: Reports chills and Reports fever(s) Eyes Eyes: Denies eye discharge ENT Ears, Nose, Mouth, and Throat: Reports as per HPI Cardiovascular Cardiovascular: Denies chest pain Respiratory Respiratory: Denies chest congestion and Reports cough Gastrointestinal Gastrointestingal: Reports nausea; Denies abdominal pain, constipation, cramping, diarrhea or vomiting Musculoskeletal Musculoskeletal: Denies arthralgias Integumentary/Breasts Skin/Breast: Denies rash Neurologic Neurologic: Denies paresthesias Physical Exam General General appearance: alert and in no apparent distress Head Head exam: atraumatic, normocephalic and normal inspection Eye Eye exam: Present normal appearance, PERRL and EOMI ENT ENT exam: Present normal exam, normal oropharynx, mucous membranes moist, TM's normal bilaterally and normal external ear exam Neck Neck exam: Present normal inspection, full ROM and trachea midline; Absent meningismus or lymphadenopathy Chest Chest inspection: Present normal inspection and symmetric chest wall rise; Absent tenderness Respiratory Respiratory exam: Present normal lung sounds bilaterally; Absent respiratory distress Cardiovascular Cardiovascular exam: Present regular rate and normal rhythm; Absent JVD Abdominal Exam Abdominal exam: Present soft and normal bowel sounds; Absent distention, tenderness or guarding Ext
[2022-06-25 18:12] LABS: UTC Influenza A Antigen Negative (Negative); UTC Influenza B Antigen Negative (Negative); UTC Strep Screen (Rapid) Negative (Negative)
[2022-06-25 18:52] LABS: Adenovirus,PCR Not Detected (NotDetected); Bordetella Pertussis Not Detected (NotDetected); Chlamydophila Pneumoniae, PCR Not Detected (NotDetected); Coronavirus 19, PCR Not Detected (NotDetected); Coronavirus 229E Not Detected (NotDetected); Coronavirus NL63 Not Detected (NotDetected); Coronavirus OC43 Not Detected (NotDetected); Coronovirus HKU1,PCR Not Detected (NotDetected); Human Metapneumovirus Not Detected (NotDetected); Influenza A, PCR Not Detected (NotDetected); Influenza AH1, 2009 Not Detected (NotDetected); Influenza AH1, PCR Not Detected (NotDetected); Influenza B, PCR Not Detected (NotDetected); Mycoplasma Pneumoniae, PCR Not Detected (NotDetected); Parainfluenza 1, PCR Not Detected (NotDetected); Parainfluenza 2, PCR Not Detected (NotDetected); Parainfluenza 3, PCR Not Detected (NotDetected); Parainfluenza 4, PCR Not Detected (NotDetected); Respiratory Syncytial Virus Not Detected (NotDetected); Rhinovirus/Enterovirus Not Detected (NotDetected)
[2022-06-25 18:53] VITALS: BP 111/71; PULSE 82; RESP 18; TEMP 36.9
[2022-06-25 22:58] LABS: Influenza AH3,PCR Detected (NotDetected)
== END 2022-06-25 18:53 | disposition home or self-care (01) ==
PROVIDERS: Emergency Provider Nurse Practitioner Family; PCP Emergency Medicine
DX: J10.1 Influenza due to other identified influenza virus with other respiratory manifestations (principal); R50.9 Fever, unspecified; R05.9 Cough, unspecified; R09.81 Nasal congestion; Z20.822 Contact with and (suspected) exposure to COVID-19; G43.909 Migraine, unspecified, not intractable, without status migrainosus; F32.A Depression, unspecified; F41.9 Anxiety disorder, unspecified; F17.290 Nicotine dependence, other tobacco product, uncomplicated; Z79.52 Long term (current) use of systemic steroids; Z88.2 Allergy status to sulfonamides; Z87.440 Personal history of urinary (tract) infections
CPT/HCPCS: 87581; 87632; 87798; 87804; 87880; 99213; C9803; G0463; U0003; U0005

== ENCOUNTER 2022-08-21 16:20 | Emergency (ER) | payer MEDICAID, SELFPAY ==
[2022-08-21 16:21] VITALS: BP 104/63; PULSE 116; RESP 17; TEMP 36.9; O2SAT 98; BMI 20.7
[2022-08-21 16:47] LABS: Microscopic, Urine URINE MICROSCOPIC (MICROSCOPIC)
[2022-08-21 16:48] LABS: Appearance,Urine CLEAR (Clear); Bilirubin,Urine 1+ (Negative); Blood, Urine Negative (Negative); Color,Urine DK YELLOW (Yellow); Glucose,Urine (UA) Negative (Negative); Ketones,Urine 1+ (Negative); Leukocyte Esterase,Urine TRACE (Negative); Nitrate,Urine Negative (Negative); Protein,Urine TRACE (Negative)
[2022-08-21 16:51] LABS: Urine Pregnancy, HCG Qual. Negative (Negative)
[2022-08-21 16:52] LABS: Basophils # 0.1 K/mm3 (0-0.2); Basophils % 1.5 % (0.1-2.0); Eosinophils # 0.1 K/mm3 (0.0-0.4); Eosinophils % 1.4 % (0.1-12.0); Hematocrit 46.1 % (37.0-47.0); Hemoglobin 16.1 g/dL (12.2-16.2); Lymphocytes # 0.5 K/mm3 (0.7-4.5); Lymphocytes % 7.2 % (10-50); Mean Corpuscular HGB Conc 34.9 g/dL (31.8-35.4); Mean Corpuscular Volume 83.1 fl (81-99); Mean Platelet Volume 8.4 fl (7.4-10.4); Monocytes # 0.2 K/mm3 (0.1-1.0); Monocytes % 2.5 % (1.7-9.3); Neutrophils % 87.4 % (37.0-80.0); Platelet Count 183 K/mm3 (142-424); Red Blood Count 5.54 M/mm3 (4.20-5.40); Red Cell Distribution Width 13.1 % (11.5-17.5); White Blood Count 6.9 K/mm3 (4.8-10.8)
[2022-08-21 16:54] LABS: Chloride 104 mmol/L (98-107); Potassium 4.1 mmoL/L (3.5-5.1); Sodium 137 mmol/L (136-145)
[2022-08-21 16:56] LABS: Alanine Aminotransferase 18 U/L (12-78); Amylase 101 U/L (30-110); Aspartate Amino Transferase 32 U/L (14-36); Blood Urea Nitrogen 12 mg/dl (7-17); Creatinine Clearance Estimated 109 mL/min (50-200); Estimated Glomerular Filt Rate 101 ml/min (>60); GFR (African American) 122 ML/MIN (>60)
[2022-08-21 16:57] LABS: Albumin Level 4.6 g/dl (3.5-5.0); Albumin/Globulin Ratio 1.4 (1.1-1.8); Alkaline Phosphatase 77 U/L (38-126); Anion Gap 12.1 mEq/L (5-15); Bilirubin,Total 0.8 mg/dl (0.2-1.3); Carbon Dioxide 25 mmol/L (22.0-30.0); Globulin 3.2 g/dL (1.3-3.2); Glucose 100 mg/dl (74-100); Lipase 83 U/L (23-300); Total Protein,Serum 7.8 g/dl (6.3-8.2)
[2022-08-21 16:59] LABS: MANUAL DIFFERENTIAL MANUAL DIFFERENTIAL (MANUAL DIFF)
[2022-08-21 17:03] LABS: Bacteria,Urine Trace /lpf; Squamous Epithelial Cell,Urine Occasional #/hpf (0-5)
--- NOTE | 2022-08-21 17:05 | CT_ITS ---
PROCEDURE INFORMATION: Exam: CT Abdomen And Pelvis With Contrast Exam date and time: 08/21/2022 5:34 PM Age: 26 years old Clinical indication: Abdominal pain; Generalized TECHNIQUE: Imaging protocol: Computed tomography of the abdomen and pelvis with contrast. Radiation optimization: All CT scans at this facility use at least one of these dose optimization techniques: automated exposure control; mA and/or kV adjustment per patient size (includes targeted exams where dose is matched to clinical indication); or iterative reconstruction. Contrast material: ISOVUE; Contrast volume: 75 ml; Contrast route: IV; COMPARISON: CT ABDOMEN PELVIS W CON 04/22/2022 4:37 AM FINDINGS: Lungs: Right lower lobe granuloma. Liver: No focal hepatic lesions. Gallbladder and bile ducts: Gallbladder is distended without radiopaque cholelithiasis. No biliary ductal dilation. Pancreas: No peripancreatic fluid stranding. No main pancreatic ductal dilation. Spleen: No splenomegaly. Adrenal glands: The adrenal glands are normal. Kidneys and ureters: Nephrograms are symmetric. No nephrolithiasis or hydroureteronephrosis on either side. No solid lesions Stomach and bowel: No bowel wall thickening or distention. Appendix: A normal appendix is identified. Intraperitoneal space: Unremarkable. No free air. No significant fluid collection. Vasculature: Aorta is nonaneurysmal. Lymph nodes: No evidence of retroperitoneal or mesenteric lymphadenopathy. Urinary bladder: Urinary bladder is unremarkable. Reproductive: There is an intrauterine contraceptive device in place, which appears appropriately positioned within the endometrial canal. Bones/joints: No acute osseous abnormality. Soft tissues: Unremarkable. IMPRESSION: No acute abnormality in the abdomen or pelvis
--- NOTE | 2022-08-21 17:16 | PC.NURSE ---
RAD NOTIFIED OF CT ORDER
[2022-08-21 17:30] LABS: Lymphocytes % 17 % (10-50); Monocytes % 3 % (2-9); Neutrophils % 80 % (42-76); RBC Morphology Normal; Total Cells Counted 100
[2022-08-21 17:31] LABS: Platelet Estimate Normal
--- NOTE | 2022-08-21 18:45 | HMH.EDABDPAI ---
Discharge Plan Disposition Patient Disposition: Home, Self-Care Prescriptions Prescriptions: New ondansetron HCl 4 mg Tablet 4 mg PO Q8H PRN (Reason: Nausea) Qty: 20 0RF Referrals Follow up/Referrals: Provider,Referral, MD [Primary Care Provider] - See instructions Clinical Impressions Clinical Impression: Abdominal pain Instructions Patient Instructions: DI for Acute Abdominal Pain Discharge ED Provider: Farhad Cabrera Abdominal Pain HPI General Chief Complaint: Abdominal Pain Stated Complaint: vomiting and abdm pain Time Seen by Provider: 08/21/22 18:45 Mode of Arrival: Ambulatory Source of Information: Patient and Medical Record Limitations: No Limitations Description of Symptoms (Recalled from ER Triage Doc. by RN): Patient reports sudden onset of N/V with lower abdominal pain that began last night. Denies being around any sick persons. Denies fever or chills. Last menstrual cycle was prior to IUD placement last year. History of Present Illness HPI narrative: upper abd pain with n/v - no melena and no known exposures complaint: abdominal pain Onset (ago): day(s) Consistency: intermittent Location: epigastric Severity: moderate Related Data Previous Rx's Medication Instructions Recorded ondansetron HCl 4 mg tablet 4 mg PO Q8H PRN Nausea #20 tabs 08/21/22 Allergies Allergy/AdvReac Type Severity Reaction Status Date / Time Sulfa (Sulfonamide Allergy Verified 06/25/22 18:12 Antibiotics) [facility] Disclaimer: The information contained in this section may have been updated after the patient was seen, as this information can be updated by other users. Medical History Anxiety Asthma Depression Migraine Urinary tract infection Surgical History History of tonsillectomy Social History Smoking Status: Current every day smoker tobacco type: e-cigarettes alcohol intake: never substance use type: denies use current occupational status: employed Travel in the last 8 weeks: None housing: house ROS Obtained: Yes All systems reviewed & no additional complaints except as documented Physical Exam General General appearance: alert Head Head exam: normocephalic Eye Eye exam: Present PERRL and EOMI; Absent scleral icterus ENT ENT exam: Present mucous membranes moist Neck Neck exam: Present trachea midline Respiratory Respiratory exam: Present normal lung sounds bilaterally; Absent respiratory distress Cardiovascular Cardiovascular exam: Present regular rate; Absent systolic murmur Abdominal Exam Abdominal exam: Present soft and tenderness; Absent guarding or rebound Abdominal tenderness: Present epigastrium and mild Extremities Exam Extremities exam: Present full ROM Neurological Exam Neurological exam: Present alert, oriented X3 and CN II-XII intact Psychiatric Psychiatric exam: Present normal affect Skin Skin exam: Absent rash Medical Decision Making Medical Records Medical records reviewed: Yes I reviewed the patient's medical records. Primo Inquiry Pt receiving controlled substance: No Vital Signs: 08/21/22 16:21 Temperature 98.5 F Temperature Source Oral Pulse Rate [Right] 116 H Respiratory Rate 17 Blood Pressure [Right Arm] 104/63 L Blood Pressure Mean [Right Arm] 76 Blood Pressure Source [Right Arm] Automatic Cuff Blood Pressure Position [Right Arm] Sitting 02 Sat by Pulse Oximetry 98 Oxygen Delivery Method Room Air Lab Data Lab results reviewed: Yes I reviewed the patient's lab results. Lab Results 08/21/22 16:32: Amylase 101 08/21/22 16:32: WBC 6.9, RBC 5.54 H, Hgb 16.1, Hct 46.1, MCV 83.1, MCH 29.0, MCHC 34.9, RDW 13.1, Plt Count 183, MPV 8.4, Neut % (Auto) 87.4 H, Lymph % (Auto) 7.2 L, [place] % (Auto) 2.5, Eos % (Auto) 1.4, Baso % (Auto) 1.5, Neut # (Auto) 6.0, Lymph # (Auto) 0
[2022-08-21 19:01] VITALS: BP 116/67; PULSE 86; RESP 17; TEMP 36.9; O2SAT 99
== END 2022-08-21 19:08 | disposition home or self-care (01) ==
PROVIDERS: Emergency Provider Emergency Medicine
DX: R10.30 Lower abdominal pain, unspecified (principal); R11.2 Nausea with vomiting, unspecified; F41.9 Anxiety disorder, unspecified; J45.909 Unspecified asthma, uncomplicated; G43.909 Migraine, unspecified, not intractable, without status migrainosus; Z87.440 Personal history of urinary (tract) infections; Z90.09 Acquired absence of other part of head and neck; F17.210 Nicotine dependence, cigarettes, uncomplicated
CPT/HCPCS: 74177; 80053; 81001; 81025; 82150; 83690; 85007; 85025; 96361; 96374; 96375; 99285; J2405; Q9967

== ENCOUNTER 2022-08-26 18:35 | Emergency (ER) | payer MEDICAID, SELFPAY ==
[2022-08-26 19:35] VITALS: BP 96/68; PULSE 70; RESP 20; TEMP 36.8; O2SAT 100; BMI 20.7
--- NOTE | 2022-08-26 19:49 | EXP.UTC ---
Discharge Plan Disposition Patient Disposition: Home, Self-Care Condition: Good Prescriptions Prescriptions: No Action ondansetron HCl 4 mg Tablet 4 mg PO Q8H PRN (Reason: Nausea) Qty: 20 0RF Referrals Follow up/Referrals: Va Garrett APRN [Primary Care Provider] - See instructions Activity Restrictions/Add. Instructions Additional Instructions/Restrictions: No sign of a bacterial infection. Likely viral. Viruses can take 7-14 days to run their course. Nasal saline and bulb syringe or nose Yaz to remove nasal drainage to help with nasal congestion. Hard to eat, drink, sleep with nasal congestion so important to keep this cleaned out. Monitor temp. Tylenol or Motrin as needed for pain or fever Encourage fluids, water, Gatorade, Powerade, Pedialyte if /toddler/child Warm salt water gargles Warm fluids Sore throat lozenges Sleep elevated Humidifier/vaporizer Follow-up immediately for new or worsening symptoms or no noticeable improvement over the next 48-72 hours. Clinical Impressions Clinical Impression: URI (upper respiratory infection) Instructions Patient Instructions: DI for Viral Upper Respiratory Infection -- Adult Discharge ED Provider: Chapo ([facility])Leigh[place] [facility] [place] General Stated complaint: cough sore throat stuffy nose Mode of Arrival: Ambulatory Source of Information: Patient Limitations: No Limitations Time Seen by Provider: 08/26/22 19:49 Description of Symptoms (Recalled from Triage Doc. by RN): PATIENT C/O NASAL CONGESTION, SORE THROAT, RUNNY NOSE, BODY ACHES AND SORE MUSCLES SINCE YESTERDAY HEENT Symptoms (Recalled from RN notes): Yes Resp Symptoms (Recalled from RN notes): No Skin Symptoms (Recalled from RN notes): No MS Symptoms (Recalled from RN notes): No Functional Status (Recalled from RN notes): WNL History of Present Illness Provider Complaint: 26 yr old female presents for nasal congestion, sore throat, runny nose,body aches and sore muscles since yesterday Related Data Previous Rx's Medication Instructions Recorded ondansetron HCl 4 mg tablet 4 mg PO Q8H PRN Nausea #20 tabs 08/21/22 Allergies Allergy/AdvReac Type Severity Reaction Status Date / Time Sulfa (Sulfonamide Allergy Verified 06/25/22 18:12 Antibiotics) Worker's Comp Is this a Worker's Comp case?: No PFSH PFSH Disclaimer: The information contained in this section may have been updated after the patient was seen, as this information can be updated by other users. Medical History , [employer]) Anxiety Asthma Depression Migraine Urinary tract infection Surgical History , [employer]) History of tonsillectomy Social History , [employer]) Smoking Status: Current every day smoker tobacco type: e-cigarettes alcohol intake: never substance use type: denies use current occupational status: employed Travel in the last 8 weeks: None housing: house ROS Obtained: Yes All systems reviewed & no additional complaints except as documented Constitutional Constitutional: Reports system reviewed and no additional complaints, except as documented Eyes Eyes: Reports system reviewed and no additional complaints, except as documented ENT Ears, Nose, Mouth, and Throat: Reports system reviewed and no additional complaints, except as documented, Reports as per HPI, Reports nasal congestion, Reports nasal discharge and Reports sore throat Cardiovascular Cardiovascular: Reports system reviewed and no additional complaints, except as documented Respiratory Respiratory: Reports system reviewed and no additional complaints, except as documented and Reports cough Gastrointestinal Gastrointestingal: Reports system reviewed and no additional complaints, except as documented Musculoskeletal Musculoskeletal: Reports system reviewed and no additional complaints, exc
[2022-08-26 19:57] LABS: UTC Influenza A Antigen Negative (Negative); UTC Influenza B Antigen Negative (Negative); UTC Strep Screen (Rapid) Negative (Negative)
[2022-08-26 19:59] VITALS: BP 96/68; PULSE 70; RESP 20; TEMP 36.8; O2SAT 100
[2022-08-26 20:06] LABS: Adenovirus,PCR Not Detected (NotDetected); Bordetella Pertussis Not Detected (NotDetected); Chlamydophila Pneumoniae, PCR Not Detected (NotDetected); Coronavirus 19, PCR Not Detected (NotDetected); Coronavirus 229E Not Detected (NotDetected); Coronavirus NL63 Not Detected (NotDetected); Coronavirus OC43 Not Detected (NotDetected); Human Metapneumovirus Not Detected (NotDetected); Influenza A, PCR Not Detected (NotDetected); Influenza AH1, 2009 Not Detected (NotDetected); Influenza AH1, PCR Not Detected (NotDetected); Influenza AH3,PCR Not Detected (NotDetected); Influenza B, PCR Not Detected (NotDetected); Mycoplasma Pneumoniae, PCR Not Detected (NotDetected); Parainfluenza 1, PCR Not Detected (NotDetected); Parainfluenza 2, PCR Not Detected (NotDetected); Parainfluenza 3, PCR Not Detected (NotDetected); Parainfluenza 4, PCR Not Detected (NotDetected); Respiratory Syncytial Virus Not Detected (NotDetected); Rhinovirus/Enterovirus Not Detected (NotDetected)
[2022-08-26 21:24] LABS: Coronovirus HKU1,PCR Detected (NotDetected)
== END 2022-08-26 20:05 | disposition home or self-care (01) ==
PROVIDERS: Emergency Provider Nurse Practitioner Family; PCP Nurse Practitioner Family
DX: J06.9 Acute upper respiratory infection, unspecified (principal)
CPT/HCPCS: 87581; 87632; 87798; 87804; 87880; 99212; 99213; C9803; G0463; U0003; U0005

== ENCOUNTER 2022-09-20 17:52 | Emergency (ER) | payer MEDICAID, SELFPAY ==
[2022-09-20 18:10] VITALS: BP 114/77; PULSE 102; RESP 20; TEMP 37.4; O2SAT 99; BMI 21.2
--- NOTE | 2022-09-20 18:17 | EXP.UTC ---
Discharge Plan Disposition Patient Disposition: Home, Self-Care Condition: Good Prescriptions Prescriptions: New promethazine 25 mg Tablet 25 mg PO Q6H PRN (Reason: Nausea And Vomiting) Qty: 15 0RF ondansetron 4 mg Tablet,Disintegrating 4 mg PO Q8H PRN (Reason: Nausea) Qty: 20 0RF Referrals Follow up/Referrals: Provider,Referral, MD [Primary Care Provider] - See instructions Activity Restrictions/Add. Instructions Additional Instructions/Restrictions: Drink plenty of fluids. Take tylenol or ibuprofen for pain or fever. Take the medications as directed. Follow up with your regular doctor. GO TO THE ER FOR ANY WORSENING SYMPTOMS The phenergran (promethazine) will make you drowsy, so don't drive or operate heavy machinery after taking it. The zofran may make you drowsy, but the drowsy effect should be much less than the phenergran. Clinical Impressions Clinical Impression: Gastroenteritis Stand Alone Forms Stand Alone Forms: Work/School Release Instructions Patient Instructions: DI for Viral Gastroenteritis -- Adult, Ondansetron, Promethazine Discharge ED Provider: Lyndon Arias [facility] General Stated complaint: vomiting body ache dirrhea Time Seen by Provider: 09/20/22 18:17 History of Present Illness Provider Complaint: She states that for the past 2 days she has had worsening sore throat, chills, and low grade fever. Related Data Previous Rx's Medication Instructions Recorded ondansetron 4 mg disintegrating 4 mg PO Q8H PRN Nausea #20 tabs 09/20/22 tablet promethazine 25 mg tablet 25 mg PO Q6H PRN Nausea And 09/20/22 Vomiting #15 tabs Allergies Allergy/AdvReac Type Severity Reaction Status Date / Time Sulfa (Sulfonamide Allergy Verified 09/20/22 18:31 Antibiotics) [facility] Disclaimer: The information contained in this section may have been updated after the patient was seen, as this information can be updated by other users. Medical History Anxiety Asthma Depression Migraine Urinary tract infection Surgical History History of tonsillectomy Social History Smoking Status: Current every day smoker tobacco type: e-cigarettes alcohol intake: never substance use type: denies use current occupational status: employed Travel in the last 8 weeks: None housing: house ROS Obtained: Yes All systems reviewed & no additional complaints except as documented Constitutional Constitutional: Reports chills and Reports fever(s) Eyes Eyes: Denies eye discharge ENT Ears, Nose, Mouth, and Throat: Reports as per HPI Cardiovascular Cardiovascular: Denies chest pain Respiratory Respiratory: Denies chest congestion and Reports cough Gastrointestinal Gastrointestingal: Reports nausea; Denies abdominal pain, constipation, cramping, diarrhea or vomiting Musculoskeletal Musculoskeletal: Denies arthralgias Integumentary/Breasts Skin/Breast: Denies rash Neurologic Neurologic: Denies paresthesias Physical Exam General General appearance: alert and in no apparent distress Head Head exam: atraumatic, normocephalic and normal inspection Eye Eye exam: Present normal appearance, PERRL and EOMI ENT ENT exam: Present mucous membranes moist and normal external ear exam Expanded ENT Exam TM/Canal exam: Bilateral TM: erythema and bulging Nose exam: Absent sinus tenderness Mouth exam: Present normal external inspection; Absent drooling Teeth exam: Present normal inspection Throat exam: Present tonsillar erythema, tonsillomegaly and tonsillar exudate Neck Neck exam: Present normal inspection, full ROM and trachea midline; Absent tenderness, meningismus or lymphadenopathy Chest Chest inspection: Present normal inspection and symmetric chest wall rise; Absent tenderness Respiratory Respiratory exam
[2022-09-20 19:17] VITALS: BP 114/77; PULSE 102; RESP 20; TEMP 37.4; O2SAT 99
== END 2022-09-20 19:17 | disposition home or self-care (01) ==
PROVIDERS: Emergency Provider Nurse Practitioner Family
DX: K52.9 Noninfective gastroenteritis and colitis, unspecified (principal)
CPT/HCPCS: 99212; 99213; G0463

== ENCOUNTER 2022-10-17 09:07 | Emergency (ER) | payer MEDICAID, SELFPAY ==
[2022-10-17 09:40] VITALS: BP 117/62; PULSE 88; RESP 20; TEMP 37.1; O2SAT 98; BMI 21.2
--- NOTE | 2022-10-17 09:57 | EXP.UTC ---
Discharge Plan Disposition Patient Disposition: Home, Self-Care Condition: Good Prescriptions Prescriptions: New metronidazole 500 mg tablet 500 mg PO Q12H 7 Days Qty: 14 0RF Referrals Follow up/Referrals: Va Garrett APRN [Primary Care Provider] - See instructions Activity Restrictions/Add. Instructions Additional Instructions/Restrictions: Take medication as prescribed Follow up with your Family Doctor if no improvement or any worsening of symptoms Follow up with your OBGYN if no improvement Return if needed Clinical Impressions Clinical Impression: Bacterial vaginosis Instructions Patient Instructions: Bacterial Vaginosis, DI for Bacterial Vaginosis, Metronidazole Discharge ED Provider: Mireya Chambers [facility] [place] HPI General Stated complaint: Possible UTI Mode of Arrival: Ambulatory Source of Information: Patient Limitations: No Limitations Time Seen by Provider: 10/17/22 09:57 Description of Symptoms (Recalled from Triage Doc. by RN): PATIENT C/O VAGINAL ODOR AND DISCHARGE X 1 WEEK HEENT Symptoms (Recalled from RN notes): No Resp Symptoms (Recalled from RN notes): No Skin Symptoms (Recalled from RN notes): No MS Symptoms (Recalled from RN notes): No Functional Status (Recalled from RN notes): WNL History of Present Illness Provider Complaint: Patient states that she has been having thin watery grayish colored discharge with strong fishy odor States that she feels like she may have BV again Related Data Previous Rx's Medication Instructions Recorded metronidazole 500 mg tablet 500 mg PO Q12H 7 days #14 tabs 10/17/22 Allergies Allergy/AdvReac Type Severity Reaction Status Date / Time Sulfa (Sulfonamide Allergy Verified 09/20/22 18:31 Antibiotics) Worker's Comp Is this a Worker's Comp case?: No [facility] Disclaimer: The information contained in this section may have been updated after the patient was seen, as this information can be updated by other users. Medical History Anxiety Asthma Depression Migraine Urinary tract infection Surgical History History of tonsillectomy Social History Smoking Status: Current every day smoker tobacco type: e-cigarettes alcohol intake: never substance use type: denies use current occupational status: employed Travel in the last 8 weeks: None housing: house ROS Obtained: Yes All systems reviewed & no additional complaints except as documented and Yes Systems reviewed as appropriate & no additional complaints except as documented Constitutional Constitutional: Reports system reviewed and no additional complaints, except as documented and Reports as per HPI ENT Ears, Nose, Mouth, and Throat: Reports system reviewed and no additional complaints, except as documented and Reports as per HPI Cardiovascular Cardiovascular: Reports system reviewed and no additional complaints, except as documented and Reports as per HPI Respiratory Respiratory: Reports system reviewed and no additional complaints, except as documented and Reports as per HPI Gastrointestinal Gastrointestingal: Reports system reviewed and no additional complaints, except as documented and as per HPI; Denies abdominal pain Genitourinary Female Genitourinary: Reports system reviewed and no additional complaints, except as documented, Reports as per HPI, Reports vaginal discharge (grayish colored thin with strong fishy odor), Reports vaginal odor and Reports vaginal pruritus Physical Exam General General appearance: alert and in no apparent distress ENT ENT exam: Present normal exam, normal oropharynx and mucous membranes moist Chest Chest inspection: Present normal inspection and symmetric chest wall rise Respiratory Respiratory exam: Present normal lung sounds bilaterally; Absent respiratory distress or wheezes Cardiovascula
[2022-10-17 09:58] LABS: Apearance,Urine Cloudy (Clear); Bilirubin,Urine Negative (Negative); Blood, Urine Negative (Negative); Color,Urine Yellow (Yellow); Glucose,Urine (UA) Negative (Negative); Ketones,Urine Negative (Negative); PH,Urine 5.5 (5.0-8.5); Protein,Urine Negative (Negative); Specific Gravity, Urine >= 1.030 (1.005-1.030); UTC Leukocyte Esterase,Urine Negative (Negative); UTC Nitrate,Urine Negative (Negative); UTC Pregnancy Test, Urine Negative (Negative); Urobilinogen,Urine 0.2 EU/dl (0.2)
[2022-10-17 10:03] VITALS: BP 117/62; PULSE 88; RESP 20; TEMP 37.1; O2SAT 98
== END 2022-10-17 10:06 | disposition home or self-care (01) ==
PROVIDERS: Emergency Provider Nurse Practitioner; PCP Nurse Practitioner Family
DX: N76.0 Acute vaginitis (principal); F17.290 Nicotine dependence, other tobacco product, uncomplicated
CPT/HCPCS: 81003; 81025; 99212; 99214; G0463

== ENCOUNTER 2022-10-30 18:58 | Emergency (ER) | payer MEDICAID, SELFPAY ==
[2022-10-30 20:06] VITALS: BP 0/0; PULSE 0; RESP 0; TEMP -17.7; TEMP 0; O2SAT 0
--- NOTE | 2022-10-30 20:06 | PC.NURSE ---
registration called and stated pt left prior to being brought back to ER
== END 2022-10-30 20:10 | disposition left against medical advice (07) ==
PROVIDERS: Emergency Provider Emergency Medicine; PCP Nurse Practitioner Family
DX: Z53.21 Procedure and treatment not carried out due to patient leaving prior to being seen by health care provider (principal)
CPT/HCPCS: 99211

== ENCOUNTER 2022-11-06 19:31 | Emergency (ER) | payer MEDICAID, SELFPAY ==
[2022-11-06 19:33] VITALS: BP 103/64; PULSE 72; RESP 17; TEMP 36.6; O2SAT 99; BMI 21.2
--- NOTE | 2022-11-06 19:40 | HMH.EDGENADL ---
Discharge Plan Disposition Patient Disposition: Home, Self-Care Prescriptions Prescriptions: New polymyxin B sulf-trimethoprim [Polytrim] 10,000 unit- 1 mg/mL drops 1 drp ophthalmic (eye) Q3H 7 Days Qty: 10 0RF No Action metronidazole 500 mg tablet 500 mg PO Q12H Referrals Follow up/Referrals: Va Garrett APRN [Primary Care Provider] - See instructions Activity Restrictions/Add. Instructions Additional Instructions/Restrictions: Your exam and history consistent with bilateral viral conjunctivitis. The mainstay of treatment for this is cool compresses and antibiotic drops and ointments are typically not indicated. In order to save you an appointment I have prescribed for you antibiotic drops if this does not improve within 72 hours but your symptoms are not consistent with a bacterial conjunctivitis. Additionally if you have any allergic type symptoms you may take antihistamines as a viral conjunctivitis can be clinically indistinguishable and have similar appearance. This could include Benadryl or allergic eyedrops as well. Please return to the emergency part with any concerns. Clinical Impressions Clinical Impression: Conjunctivitis, acute, bilateral Discharge ED Provider: Priya Vergara General Adult HPI General Chief complaint: Eye Problems Stated complaint: possible pink eye Time Seen by Provider: 11/06/22 19:40 History of Present Illness HPI narrative: 26-year-old female presents with bilateral eye redness with a sick contact at home with a child who has conjunctivitis. No purulent drainage no fevers or chills no sneezing or other allergy symptoms symptoms are mild. Related Data Home Medications Medication Instructions Recorded Confirmed metronidazole 500 mg tablet 500 mg PO Q12H vb abx 11/06/22 11/06/22 Previous Rx's Medication Instructions Recorded polymyxin B sulfate 10,000 1 drp ophthalmic (eye) Q3H 7 days 11/06/22 unit-trimethoprim 1 mg/mL eye #10 mL drops (Polytrim) Allergies Allergy/AdvReac Type Severity Reaction Status Date / Time Sulfa (Sulfonamide Allergy Verified 09/20/22 18:31 Antibiotics) [facility] Disclaimer: The information contained in this section may have been updated after the patient was seen, as this information can be updated by other users. Medical History Anxiety Asthma Depression Migraine Urinary tract infection Surgical History History of tonsillectomy Social History Smoking Status: Current every day smoker tobacco type: e-cigarettes alcohol intake: never substance use type: denies use current occupational status: employed Travel in the last 8 weeks: None housing: house ROS Obtained: Yes All systems reviewed & no additional complaints except as documented Physical Exam General General appearance: alert and in no apparent distress Eye Eye exam: Present conjunctival injection (Bilaterally) and other (Initial acuity is normal); Absent discharge Respiratory Respiratory exam: Present normal lung sounds bilaterally; Absent respiratory distress Cardiovascular Cardiovascular exam: Absent tachycardia Neurological Exam Neurological exam: Present alert and oriented X3 Medical Decision Making Primo Inquiry Pt receiving controlled substance: No Vital Signs: 11/06/22 19:33 Temperature 97.8 F Temperature Source Oral Pulse Rate [Right] 72 Respiratory Rate 17 Blood Pressure [Right Arm] 103/64 L Blood Pressure Mean [Right Arm] 77 Blood Pressure Source [Right Arm] Automatic Cuff 02 Sat by Pulse Oximetry 99 Oxygen Delivery Method Room Air Medical Decision Narrative: Patient has a relatively normal exam very mild bilateral conjunctivitis most likely viral in nature. Allergic conjunctivitis can be clinically indistinguishable but she does not have any symptom
[2022-11-06 20:08] VITALS: BP 105/68; PULSE 75; RESP 16; TEMP 36.8; O2SAT 99
== END 2022-11-06 20:09 | disposition home or self-care (01) ==
PROVIDERS: Emergency Provider Student in an Organized Health Care Education/Training Program; PCP Nurse Practitioner Family
DX: H10.9 Unspecified conjunctivitis (principal)
CPT/HCPCS: 99283; 99284

== ENCOUNTER 2023-08-07 09:36 | Emergency (ER) | payer MEDICAID, SELFPAY ==
[2023-08-07 09:50] VITALS: BP 113/65; PULSE 98; RESP 20; TEMP 36.9; O2SAT 97; BMI 20.2
--- NOTE | 2023-08-07 10:09 | ED_ITS ---
Discharge Plan Disposition Patient Disposition: Home, Self-Care Condition: Good Prescriptions Prescriptions: New amoxicillin 500 mg capsule 500 mg PO BID 10 Days Qty: 20 0RF Referrals Follow up/Referrals: Provider,Referral, MD [Primary Care Provider] - See instructions Activity Restrictions/Add. Instructions Additional Instructions/Restrictions: *Monitor Temp, Over the counter Motrin or Tylenol as directed/as needed Tylenol every 4 hours and Motrin every 6 hours (as long as your family doctor has told you that you can take it) for fever or pain. and straight to ER if unable to lower temp less than 101.0 after medication given *Warm salt water gargles may help to soothe the throat *Throat Lozenges? *Warm fluids like tea with honey may help to soothe the throat? *Sleep elevated *Humidifier/Vaporizer Take medication as prescribed Follow up IMMEDIATELY for new or worsening symptoms or no Noticeable improvement over the next 48-72 hours. 911 for difficulty breathing or swallowing Clinical Impressions Clinical Impression: Pharyngitis Instructions Patient Instructions: Sore Throat Discharge ED Provider: [place]ireya Chambers [facility] [place] General Stated complaint: cough sore throat body aches Mode of Arrival: Ambulatory Source of Information: Patient Limitations: No Limitations Time Seen by Provider: 08/07/23 10:09 Description of Symptoms (Recalled from Triage Doc. by RN): PATIENT C/O SORE THROAT, BODY ACHES, EAR ACHE AND COUGH SINCE YESTERDAY HEENT Symptoms (Recalled from RN notes): Yes Resp Symptoms (Recalled from RN notes): Yes Skin Symptoms (Recalled from RN notes): No MS Symptoms (Recalled from RN notes): No Functional Status (Recalled from RN notes): WNL History of Present Illness Provider Complaint: Patient states that she started feeling bad yesterday States that she has been having sore throat, body aches States that today she is still not feeling any better so today she came in to get checked Related Data Previous Rx's Medication Instructions Recorded amoxicillin 500 mg capsule 500 mg PO BID 10 days #20 caps 08/07/23 Allergies Allergy/AdvReac Type Severity Reaction Status Date / Time Sulfa (Sulfonamide Allergy Verified 09/20/22 18:31 Antibiotics) Worker's Comp Is this a Worker's Comp case?: No [facility] Disclaimer: The information contained in this section may have been updated after the patient was seen, as this information can be updated by other users. Medical History Anxiety Asthma Depression Migraine Urinary tract infection Surgical History History of tonsillectomy Social History Smoking Status: Current every day smoker tobacco type: e-cigarettes alcohol intake: never substance use type: denies use current occupational status: employed Travel in the last 8 weeks: None housing: house ROS Obtained: Yes All systems reviewed & no additional complaints except as documented and Yes Systems reviewed as appropriate & no additional complaints except as documented Constitutional Constitutional: Reports system reviewed and no additional complaints, except as documented, Reports as per HPI, Reports body ache, Reports chills and Reports headache(s) ENT Ears, Nose, Mouth, and Throat: Reports system reviewed and no additional complaints, except as documented, Reports as per HPI, Reports headache(s), Reports nasal congestion, Reports nasal discharge and Reports sore throat Cardiovascular Cardiovascular: Reports system reviewed and no additional complaints, except as documented and Reports as per HPI Respiratory Respiratory: Reports system reviewed and no additional complaints, except as documented and Reports as per HPI Gastrointestinal Gastrointestingal: Reports system reviewed and no additional complaints, except as documented and as per HPI Neurologic Neurologic: Reports headache(s) Physical Exam General General appearance: alert and in no apparent distress ENT ENT exam: Present mucous membranes moist Expanded ENT Exam Nose exam: Present sinus tenderness Throat exam: Present other (pharyngeal erythema noted with PND) Respiratory Respiratory exam: Present normal lung sounds bilaterally; Absent respiratory distress or wheezes Cardiovascular Cardiovascular exam: Present regular rate, normal rhythm and normal heart sounds Abdominal Exam Abdominal exam: Present soft and normal bowel sounds; Absent distention or tenderness Neurological Exam Neurological exam: Present alert, oriented X3 and normal gait Medical Decision Making Primo Inquiry Pt receiving controlled substance: No Primo was queried for this patient: No Vital Signs: 08/07/23 09:50 Temperature 98.4 F Temperature Source Oral Pulse Rate [Left Brachial] 98 H Respiratory Rate 20 Blood Pressure [Left Arm] 113/65 Blood Pressure Mean [Left Arm] 81 Blood Pressure Source [Left Arm] Automatic Cuff Blood Pressure Position [Left Arm] Sitting 02 Sat by Pulse Oximetry 97 Oxygen Delivery Method Room Air Lab Data Lab results reviewed: Yes I reviewed the patient's lab results.
[2023-08-07 10:16] LABS: UTC Influenza A Antigen Negative (Negative); UTC Strep Screen (Rapid) Negative (Negative)
[2023-08-07 10:17] LABS: UTC Influenza B Antigen Negative (Negative)
[2023-08-07 10:28] VITALS: BP 113/65; PULSE 98; RESP 20; TEMP 36.9; O2SAT 97
== END 2023-08-07 10:30 | disposition home or self-care (01) ==
PROVIDERS: Emergency Provider Nurse Practitioner
DX: J02.9 Acute pharyngitis, unspecified (principal); R51.9 Headache, unspecified; R05.9 Cough, unspecified; R09.81 Nasal congestion; R68.83 Chills (without fever); M79.18 Myalgia, other site; F17.290 Nicotine dependence, other tobacco product, uncomplicated; J45.909 Unspecified asthma, uncomplicated
CPT/HCPCS: 87804; 87880; 99212; 99214; G0463

== ENCOUNTER 2023-08-08 09:57 | Emergency (ER) | payer MEDICAID, SELFPAY ==
[2023-08-08 09:58] VITALS: BP 116/76; PULSE 114; RESP 18; TEMP 37.3; O2SAT 98
--- NOTE | 2023-08-08 10:16 | ED_ITS ---
Discharge Plan Disposition Patient Disposition: Home, Self-Care Chief Complaint: Fever Prescriptions Prescriptions: No Action amoxicillin 500 mg capsule 500 mg PO BID 10 Days Qty: 20 0RF Referrals Follow up/Referrals: Va Kasper APRN [Primary Care Provider] - See instructions Activity Restrictions/Add. Instructions Additional Instructions/Restrictions: Call your family doctor to establish care for this visit to the emergency department and schedule follow-up within 48 hours to ensure improvement. If you have any worsening of your condition or any other concerning signs or symptoms, return to the emergency department or your primary care doctor for further evaluation. Take Tylenol 1000 mg every 6 hours (4 times daily) and ibuprofen 400 mg every 6 hours (4 times daily) as needed with food and water to prevent GI upset and kidney damage. Clinical Impressions Clinical Impression: Influenza B Discharge ED Provider: Buddy Vaughan General Adult HPI General Chief complaint: Fever Stated complaint: fever, cough and sore throat and stomach ache Time Seen by Provider: 08/08/23 10:04 Mode of Arrival: Ambulatory Source of Information: Patient Limitations: No Limitations Description of Symptoms (Recalled from ER Triage Doc. by RN): Patient reports she has been sick for a week complaints of cough, sore throat, diarrhea, and nausea. Patient reports temp has been as high as 103.9 and has been rotating tylenol and motrin with little relief. Patient states she was seen here at [facility] and prescribed antibiotics 2 days ago and is not feeling better. History of Present Illness HPI narrative: 27-year-old history of colectomy presenting with cough, sore throat, diarrhea and nausea. Patient has had numerous sick contacts in the house. Patient started having symptoms about 2 days prior. Continued to have fever up to 103.9 ?F last night, 08/07. Was seen in the urgent care couple days prior to this visit, prescribed amoxicillin for pharyngitis. Patient has had diarrhea since that time and is nonbloody. Denies any other symptoms at this time. Fever and symptoms are responsive to Tylenol Motrin. Related Data Previous Rx's Medication Instructions Recorded amoxicillin 500 mg capsule 500 mg PO BID 10 days #20 caps 08/07/23 Allergies Allergy/AdvReac Type Severity Reaction Status Date / Time Sulfa (Sulfonamide Allergy Verified 09/20/22 18:31 Antibiotics) [facility] Disclaimer: The information contained in this section may have been updated after the patient was seen, as this information can be updated by other users. Medical History Anxiety Asthma Depression Migraine Urinary tract infection Surgical History History of tonsillectomy Social History Smoking Status: Current every day smoker tobacco type: e-cigarettes alcohol intake: never substance use type: denies use current occupational status: employed Travel in the last 8 weeks: None housing: house ROS Obtained: Yes All systems reviewed & no additional complaints except as documented Physical Exam General General appearance: alert and in no apparent distress Head Head exam: atraumatic and normocephalic Eye Eye exam: Present normal appearance, PERRL and EOMI ENT ENT exam: Present mucous membranes moist, TM's normal bilaterally and other (Pharyngeal erythema without any secondary findings.) Neck Neck exam: Present normal inspection, full ROM and trachea midline; Absent lymphadenopathy Respiratory Respiratory exam: Absent respiratory distress, wheezes, stridor, accessory muscle use or prolonged expiratory phase Cardiovascular Cardiovascular exam: Present normal rhythm Abdominal Exam Abdominal exam: Present soft; Absent distention, tenderness, guarding, rebound or rigidity Extremities Exam Extremities exam: Absent edema Neurological Exam Neurological exam: Present alert, oriented X3, CN II-XII intact and normal gait; Absent motor sensory deficit Skin Skin exam: Present warm and dry; Absent diaphoresis or erythema Medical Decision Making Medical Records Medical records reviewed: Yes I reviewed the patient's medical records. Primo Inquiry Pt receiving controlled substance: No Primo was queried for this patient: No Vital Signs: 08/08/23 09:58 08/08/23 10:14 Temperature 99.1 F Temperature Source Oral Oral Pulse Rate [Right] 114 H Respiratory Rate 18 Blood Pressure [Right Arm] 116/76 Blood Pressure Mean [Right Arm] 89 Blood Pressure Source [Right Arm] Automatic Cuff 02 Sat by Pulse Oximetry 98 Oxygen Delivery Method Room Air Lab Data Lab Results 08/08/23 10:00: SARS-CoV-2 (PCR) Not detected, Influenza A Untype (PCR) Not detected, Influenza Type B (PCR) Detected A Orders (Tests/Meds): ED MEDICATIONS Discontinued Medications Generic Name Dose Route Start Last Admin Trade Name Freq PRN Reason Stop Dose Admin Dexamethasone 10 mg 08/08/23 10:11 08/08/23 10:19 Dexamethasone 4mg Tablet PO 08/08/23 10:12 10 mg ONCE ONE Administration ORDERS Category Date Time Status Rapid PCR Covid and Flu A/B Stat Lab 08/08/23 10:00 Completed Medical Decision Narrative: 27-year-old history of colectomy presenting with cough, sore throat, diarrhea and nausea. Patient has had numerous sick contacts in the house. Patient started having symptoms about 2 days prior. Continued to have fever up to 103.9 ?F last night, 08/07. Was seen in the urgent care couple days prior to this visit, prescribed amoxicillin for pharyngitis. Patient has had diarrhea since that time and is nonbloody. Denies any other symptoms at this time. Fever and symptoms are responsive to Tylenol Motrin. It should be noted that patient had a tonsillectomy and likely does not have strep pharyngitis. Currently on antibiotics likely causing diarrhea and complicating history. History was obtained via conversation with patient. On arrival, patient hemodynamically stable, alert, oriented x4, appropriate, GCS 15, moving all extremities spontaneously, pupils equal and reactive to light. Full physical exam performed and significant for hemodynamically stable. Mildly tachycardic 115 beats a minute, but afebrile and normotensive. Differential includes viral pharyngitis, antibiotic associated diarrhea, chaz roenteritis, among others. Patient was given Decadron p.o. for symptomatic management and correction of underlying abnormalities. Workup independently interpreted and significant for influenza B positive. On reevaluation, patient sleeping comfortably. Given patient presentation, workup, history, this most likely represents influenza B. Because patient outside of treatment window, not prescribed antiflu medication at this time. Because patient at baseline without signs or symptoms of clinical decompensation, deemed appropriate for discharge. Results were relayed to patient who voiced understanding and were agreeable to outpatient management and follow up. At the time of discharge the patient was hemodynamically stable, tolerating PO, and mobilizing appropriately. Critical Care Critical Care Time Critical Care Time: No
[2023-08-08 10:19] LABS: Coronavirus 19, PCR Not Detected (NotDetected); Influenza A, PCR Not Detected (NotDetected)
[2023-08-08] MEDS: DEXAMETHASONE 4MG TABLET 10 MG PO (10:19)
[2023-08-08 10:55] LABS: Influenza B, PCR Detected (NotDetected)
[2023-08-08 11:44] VITALS: BP 123/74; PULSE 90; RESP 20; TEMP 37.3; O2SAT 98
== END 2023-08-08 11:45 | disposition home or self-care (01) ==
PROVIDERS: Emergency Provider Emergency Medicine; PCP Nurse Practitioner Family
DX: J10.1 Influenza due to other identified influenza virus with other respiratory manifestations (principal); J10.2 Influenza due to other identified influenza virus with gastrointestinal manifestations; R05.9 Cough, unspecified; R19.7 Diarrhea, unspecified; R11.0 Nausea; J45.909 Unspecified asthma, uncomplicated; F17.290 Nicotine dependence, other tobacco product, uncomplicated
CPT/HCPCS: 87636; 99283

== ENCOUNTER 2023-08-11 14:56 | Emergency (ER) | payer MEDICAID, SELFPAY ==
[2023-08-11 14:57] VITALS: BP 126/79; PULSE 108; RESP 19; O2SAT 100
[2023-08-11 15:06] VITALS: BP 126/79; PULSE 108; O2SAT 100
--- NOTE | 2023-08-11 15:13 | XR_ITS ---
PROCEDURE INFORMATION: Exam: XR Chest Exam date and time: 08/11/2023 3:44 PM Age: 27 years old Clinical indication: Cough; Additional info: Post flu cough fever TECHNIQUE: Imaging protocol: Radiologic exam of the chest. Views: 1 view. Total images: 2 COMPARISON: CR XR CHEST 2V 01/09/2022 8:35 PM FINDINGS: Lungs: Atelectatic changes noted within the left lung base. Bilateral hyperinflation is present. Pleural spaces: Unremarkable. No pleural effusion. No pneumothorax. Heart/Mediastinum: Unremarkable. No cardiomegaly. Bones/joints: Unremarkable. IMPRESSION: 1. Atelectatic changes noted within the left lung base. 2. Bilateral hyperinflation is present.
[2023-08-11 15:14] VITALS: TEMP 38.2
--- NOTE | 2023-08-11 15:14 | HMH.EDGENADL ---
Discharge Plan Disposition Patient Disposition: Home, Self-Care Prescriptions Prescriptions: New ondansetron HCl 4 mg tablet 4 mg PO Q8H PRN (Reason: nausea and vomiting) 5 Days Qty: 30 0RF amoxicillin-pot clavulanate 875-125 mg tablet 1 tab PO BID 7 Days Qty: 14 0RF No Action amoxicillin 500 mg capsule 500 mg PO BID 10 Days Qty: 20 0RF Referrals Follow up/Referrals: Sayda Garrett [Primary Care Provider] - See instructions Activity Restrictions/Add. Instructions Additional Instructions/Restrictions: Please take antibiotics as prescribed to treat possible UTI and bacterial sinusitis. Please take Zofran as needed for nausea vomiting. Recommend following up your primary care doctor after resolution of illness to have your blood work rechecked. Clinical Impressions Clinical Impression: Acute bacterial sinusitis, UTI (urinary tract infection), Influenza, Neutropenia, Thrombocytopenia Discharge ED Provider: Anup Herndon General Adult HPI General Chief complaint: Fever Stated complaint: vomiting, cough Time Seen by Provider: 08/11/23 15:00 Mode of Arrival: Ambulatory Source of Information: Patient Limitations: No Limitations Description of Symptoms (Recalled from ER Triage Doc. by RN): 27 yo F presents to ED with c/o worseining flu symptoms. pt reports fever will not break althought she is taking tylenol and motrin every 4 hours. pt reports vomitting and diarrhea that began yesterday. History of Present Illness HPI narrative: 27-year-old female presents with worsening/persistent flulike illness. She reports illnesses been going on for 9 or 10 days. She was diagnosed for 5 days ago with the flu. Reports burning with urination. She reports persistent facial pain and green/purulent drainage from her nose. She reports persistent cough, persistent crampy generalized abdominal pain with nausea vomiting and diarrhea. Denies any significant shortness of breath, chest pain, focal abdominal pain Related Data Previous Rx's Medication Instructions Recorded amoxicillin 500 mg capsule 500 mg PO BID 10 days #20 caps 08/07/23 amoxicillin 875 mg-potassium 1 tab PO BID 7 days #14 tabs 08/11/23 clavulanate 125 mg tablet ondansetron HCl 4 mg tablet 4 mg PO Q8H PRN nausea and 08/11/23 vomiting 5 days #30 tabs Allergies Allergy/AdvReac Type Severity Reaction Status Date / Time Sulfa (Sulfonamide Allergy Verified 08/11/23 15:14 Antibiotics) [facility] Disclaimer: The information contained in this section may have been updated after the patient was seen, as this information can be updated by other users. Medical History Anxiety Asthma Depression Migraine Urinary tract infection Surgical History History of tonsillectomy Social History Smoking Status: Current every day smoker tobacco type: e-cigarettes alcohol intake: never substance use type: denies use current occupational status: employed Travel in the last 8 weeks: None housing: [place] ROS Obtained: Yes All systems reviewed & no additional complaints except as documented Physical Exam General General appearance: alert and in no apparent distress Head Head exam: atraumatic and normocephalic Eye Eye exam: Present normal appearance, PERRL and EOMI ENT ENT exam: Present mucous membranes dry and normal external ear exam Neck Neck exam: Present normal inspection and full ROM Chest Chest inspection: Present normal inspection and symmetric chest wall rise; Absent tenderness Respiratory Respiratory exam: Present normal lung sounds bilaterally; Absent respiratory distress or wheezes Cardiovascular Cardiovascular exam: Present normal rhythm and tachycardia Abdominal Exam Abdominal exam: Present soft and tenderness (Mild, generalized); Absent distention or guarding Extremities Exam Extremities exam: Present normal inspection; Absent edema or joint swelling Back Exam Back exam: Present normal inspection; Absent tenderness Neurological Exam Neurological exam: Present alert and oriented X3; Absent motor sensory deficit Psychiatric Psychiatric exam: Present normal affect and normal mood Skin Skin exam: Present warm, dry and normal color Lymphatic Lymphatic Findings: no adenopathy Medical Decision Making Medical Records Medical records reviewed: Yes I reviewed the patient's medical records. Primo Inquiry Pt receiving controlled substance: No Primo was queried for this patient: No Vital Signs: 08/11/23 14:57 08/11/23 15:14 08/11/23 14:57 Temperature 100.8 F H Temperature Source Oral Oral Pulse Rate Pulse Rate [Left Radial] 108 H Respiratory Rate 19 Blood Pressure Blood Pressure [Right Arm] 126/79 Blood Pressure Mean Blood Pressure Mean [Right Arm] 94 02 Sat by Pulse Oximetry 100 Oxygen Delivery Method Room Air 08/11/23 15:06 08/11/23 16:05 Temperature Temperature Source Pulse Rate 108 H 94 H Pulse Rate [Left Radial] Respiratory Rate 18 Blood Pressure 126/79 109/69 L Blood Pressure [Right Arm] Blood Pressure Mean 94 82 Blood Pressure Mean [Right Arm] 02 Sat by Pulse Oximetry 100 98 Oxygen Delivery Method Room Air Lab Data Lab results reviewed: Yes I reviewed the patient's lab results. Lab Results 08/11/23 15:15: Urine Color Yellow, Urine Appearance Clear, Urine pH 7.0, Ur Specific [place] <= 1.005, Urine Protein Negative, Urine Glucose (UA) Negative, Urine Ketones Negative, Urine Blood Negative, Urine Nitrate Negative, Urine Bilirubin Negative, Urine Urobilinogen 0.2, Ur Leukocyte Esterase 1+ A, Urine RBC None, Urine WBC 3-5, Ur Squamous Epith Cells Occasional, Urine Bacteria Trace 08/11/23 15:21: WBC 2.1 L, RBC 5.03, Hgb 15.0, Hct 43.0, MCV 85.7, MCH 29.8, MCHC 34.8, RDW 12.8, Plt Count 104 L, MPV 8.9, Neut % (Auto) 60.4, Lymph % (Auto) 31.6, [place] % (Auto) 6.9, Eos % (Auto) 0.5, Baso % (Auto) 0.7, Neut # (Auto) 1.2 L, Lymph # (Auto) 0.7, [place] # (Auto) 0.1, Eos # (Auto) 0.0, Baso # (Auto) 0.0, Sodium 134 L, Potassium 4.0, Chloride 100, Carbon Dioxide 26, Anion Gap 12.0, BUN 8, Creatinine 0.70, Estimated Creat Clear 101, Estimated GFR 100, Est GFR ( Amer) 121, Glucose 89, Calcium 8.2 L, Magnesium 1.9, Total Bilirubin 0.3, AST 32, ALT 21, Alkaline Phosphatase 59, Total Protein 6.9, Albumin 4.0, Globulin 2.9, Albumin/Globulin Ratio 1.4, Lipase 140, Serum HCG, Qual Negative 08/11/23 15:21 08/11/23 15:21 Orders (Tests/Meds): ED MEDICATIONS Discontinued Medications Generic Name Dose Route Start Last Admin Trade Name Freq PRN Reason Stop Dose Admin Acetaminophen 1,000 mg 08/11/23 15:24 08/11/23 15:26 Acetaminophen 1,000mg/100ml Vial IV 08/11/23 15:25 1,000 mg ONCE ONE Administration Amoxicillin/Clavulanate Potassium 1 each 08/11/23 15:56 08/11/23 16:03 Amoxicillin/Clavulanate Potassium 875/125mg Tablet PO 08/11/23 15:57 1 each ONCE ONE Administration Lactated Ringer's 1,000 mls @ 999 mls/hr 08/11/23 15:15 08/11/23 15:24 Lactated Ringer's 1000 Ml Bag IV 08/11/23 16:15 999 mls/hr .Q1H1M NAYAN Administration Ibuprofen 800 mg 08/11/23 15:25 08/11/23 15:27 Ibuprofen 800 Mg Tablet PO 08/11/23 15:26 Not Given ONCE ONE Ibuprofen 800 mg 08/11/23 15:26 08/11/23 15:28 Ibuprofen 400 Mg Tablet PO 08/11/23 15:27 800 mg ONCE ONE Administration Ondansetron HCl 4 mg 08/11/23 15:12 08/11/23 15:25 Ondansetron 4mg/2ml Vial IV 08/11/23 15:13 4 mg ONCE ONE Administration ORDERS Category Date Time Status CXR --portable [XR chest portable] Stat Exams 08/11/23 15:13 Taken CBC w/Auto Diff [Complete Blood Count Auto Diff] Stat Lab 08/11/23 15:21 Completed CMP [Comprehensive Metabolic Panel] Stat Lab 08/11/23 15:21 Completed HCG Qualitative, Serum Stat Lab 08/11/23 15:21 Completed Lipase Stat Lab 08/11/23 15:21 Completed Magnesium Stat Lab 08/11/23 15:21 Completed UA [Urinalysis and Microscopic] Stat Lab 08/11/23 15:15 Completed Urine Culture Stat Micro 08/11/23 15:15 Received Medical Decision Narrative: 27-year-old female with history of asthma, day 9 of illness, diagnosed with flu 4 to 5 days ago, presents with persistent fever nausea vomiting diarrhea sinus drainage cough and burning with urination. History was obtained via conversation with patient. On arrival, patient is febrile, mildly tachycardic, satting appropriately on room air, moving all extremities spontaneously. Full physical exam performed and significant for dry mucous membranes, mild generalized abdominal discomfort without focal tenderness, clear lungs bilaterally Differential includes but is not limited to post flu pneumonia, sinusitis, UTI, COVID, cholecystitis appendicitis. Patient was given 1 L fluid bolus, 4 mg IV Zofran, p.o. Tylenol for symptomatic management and correction of underlying abnormalities. Workup initiated including CBC CMP UA urine lipase chest x-ray. On re-evaluation, patient remains hemodynamically stable. Laboratory workup independently interpreted by me and significant for mild neutropenia and thrombocytopenia, consistent with viral suppression in the setting of known viral illness. Urine shows bacteria and elevated WBCs, given burning with urination we will treat as UTI. Imaging independently interpreted by me and significant for chest x-ray with viral appearance, without focal unilateral opacity. See radiology read for full review of final results. Admission for IV antibiotic therapy was considered given fever and neutropenia, but deemed unnecessary due to mild neutropenia, previously healthy patient with known viral illness. Given patient history, exam and workup, patient's presentation most likely represents bacterial sinusitis and UTI in the setting of known flu infection with mild dehydration. These findings were communicated with patient. She was given dose of Augmentin in ED for treatment of both and was discharged with prescription for Zofran and Augmentin. She was instructed to follow-up with her PCP after her illness to reassess her white count and platelet count. Return precautions given. Procedures Risk/Benefits of Procedure(s) Were Explained: Yes Critical Care Critical Care Time Critical Care Time: No
[2023-08-11 15:20] LABS: Microscopic, Urine URINE MICROSCOPIC (MICROSCOPIC)
[2023-08-11 15:24] LABS: Appearance,Urine CLEAR (Clear); Bilirubin,Urine Negative (Negative); Blood, Urine Negative (Negative); Color,Urine YELLOW (Yellow); Glucose,Urine (UA) Negative (Negative); Ketones,Urine Negative (Negative); Leukocyte Esterase,Urine 1+ (Negative); Nitrate,Urine Negative (Negative); Protein,Urine Negative (Negative); Specific Gravity, Urine <= 1.005 (1.005-1.030); Urobilinogen,Urine 0.2 EU/dl (0.2)
[2023-08-11] MEDS: LACTATED RINGERS 1000ML 1,000 ML 999 ML IV (15:24)
[2023-08-11] MEDS: ONDANSETRON 4MG/2ML VIAL 4 MG IV (15:25)
[2023-08-11] MEDS: ACETAMINOPHEN 1,000MG/100ML VIAL 1000 MG IV (15:26)
[2023-08-11] MEDS: IBUPROFEN 400 MG TABLET 800 MG PO (15:28)
[2023-08-11 15:30] LABS: Basophils % 0.7 % (0.1-2.0); Eosinophils % 0.5 % (0.1-12.0); Lymphocytes # 0.7 K/mm3 (0.7-4.5); Lymphocytes % 31.6 % (10-50); Mean Corpuscular HGB Conc 34.8 g/dL (31.8-35.4); Mean Corpuscular Hemoglobin 29.8 pg (27.0-31.2); Mean Corpuscular Volume 85.7 fl (81-99); Mean Platelet Volume 8.9 fl (7.4-10.4); Monocytes # 0.1 K/mm3 (0.1-1.0); Monocytes % 6.9 % (1.7-9.3); Neutrophils # 1.2 K/mm3 (1.8-7.8); Neutrophils % 60.4 % (37.0-80.0); Platelet Count 104 K/mm3 (142-424); Red Blood Count 5.03 M/mm3 (4.20-5.40); Red Cell Distribution Width 12.8 % (11.5-17.5); White Blood Count 2.1 K/mm3 (4.8-10.8)
[2023-08-11 15:32] LABS: Squamous Epithelial Cell,Urine Occasional #/hpf (0-5)
[2023-08-11 15:33] LABS: Bacteria,Urine Trace /lpf
[2023-08-11 15:36] LABS: Chloride 100 mmol/L (98-107); Sodium 134 mmol/L (136-145)
[2023-08-11 15:38] LABS: Alanine Aminotransferase 21 U/L (12-78); Blood Urea Nitrogen 8 mg/dl (7-17); Creatinine Clearance Estimated 101 mL/min (50-200); Estimated Glomerular Filt Rate 100 ml/min (>60); GFR (African American) 121 ML/MIN (>60)
[2023-08-11 15:39] LABS: Albumin/Globulin Ratio 1.4 (1.1-1.8); Alkaline Phosphatase 59 U/L (38-126); Aspartate Amino Transferase 32 U/L (14-36); Bilirubin,Total 0.3 mg/dl (0.2-1.3); Calcium 8.2 mg/dl (8.4-10.2); Carbon Dioxide 26 mmol/L (22.0-30.0); Globulin 2.9 g/dL (1.3-3.2); Glucose 89 mg/dl (74-100); Lipase 140 U/L (23-300); Total Protein,Serum 6.9 g/dl (6.3-8.2)
[2023-08-11 15:40] LABS: Magnesium 1.9 mg/dl (1.6-2.3)
[2023-08-11 15:41] LABS: HCG Qualitative, Serum Negative (Negative)
[2023-08-11] MEDS: AMOXICILLIN/CLAVULANATE POTASSIUM 875/125MG TABLET 1 EACH PO (16:03)
[2023-08-11 16:05] VITALS: BP 109/69; PULSE 94; RESP 18; O2SAT 98
[2023-08-11 16:34] VITALS: BP 110/70; PULSE 80; RESP 16; TEMP 36.6; O2SAT 99
== END 2023-08-11 16:35 | disposition home or self-care (01) ==
PROVIDERS: Emergency Provider Emergency Medicine; PCP Family Medicine
DX: J01.90 Acute sinusitis, unspecified (principal); N39.0 Urinary tract infection, site not specified; D70.9 Neutropenia, unspecified; D69.6 Thrombocytopenia, unspecified; J10.1 Influenza due to other identified influenza virus with other respiratory manifestations; J10.2 Influenza due to other identified influenza virus with gastrointestinal manifestations; R10.84 Generalized abdominal pain; R11.2 Nausea with vomiting, unspecified; R19.7 Diarrhea, unspecified; R05.9 Cough, unspecified; J45.909 Unspecified asthma, uncomplicated; F17.290 Nicotine dependence, other tobacco product, uncomplicated
CPT/HCPCS: 71045; 80053; 81001; 83690; 83735; 84703; 85025; 87086; 96361; 96374; 96375; 99285; J0131; J2405

== ENCOUNTER 2023-11-12 09:31 | Outpatient (CLI) | payer MEDICAID, SELFPAY ==
[2023-11-12 10:14] LABS: Basophils % 0.7 % (0.1-2.0); Eosinophils % 0.8 % (0.1-12.0); Hematocrit 45.1 % (37.0-47.0); Hemoglobin 15.2 g/dL (12.2-16.2); Lymphocytes # 1.6 K/mm3 (0.7-4.5); Lymphocytes % 31.6 % (10-50); Mean Corpuscular HGB Conc 33.7 g/dL (31.8-35.4); Mean Corpuscular Hemoglobin 30.1 pg (27.0-31.2); Mean Corpuscular Volume 89.2 fl (81-99); Mean Platelet Volume 8.6 fl (7.4-10.4); Monocytes # 0.2 K/mm3 (0.1-1.0); Monocytes % 3.7 % (1.7-9.3); Neutrophils # 3.1 K/mm3 (1.8-7.8); Neutrophils % 63.2 % (37.0-80.0); Platelet Count 177 K/mm3 (142-424); Red Blood Count 5.05 M/mm3 (4.20-5.40)
[2023-11-12 11:57] LABS: Alanine Aminotransferase 17 U/L (12-78); Albumin Level 4.3 g/dl (3.5-5.0); Alkaline Phosphatase 57 U/L (38-126); Anion Gap 10.8 mEq/L (5-15); Aspartate Amino Transferase 21 U/L (14-36); Bilirubin,Direct 0.1 mg/dl (0.0-0.4); Bilirubin,Indirect 0.4 mg/dL (0.0-0.9); Bilirubin,Total 0.5 mg/dl (0.2-1.3); Bilirubin,Unconjugated 0.4 mg/dL (0.0-1.1); Blood Urea Nitrogen 13 mg/dl (7-17); Calcium 9.7 mg/dl (8.4-10.2); Carbon Dioxide 26 mmol/L (22.0-30.0); Chloride 104 mmol/L (98-107); Chol/HDL Ratio 5.3 (1-3.5); Cholesterol 210 mg/dl (140-200); Estimated Glomerular Filt Rate 100 ml/min (>60); GFR (African American) 121 ML/MIN (>60); Glucose 88 mg/dl (74-100); HDL Cholesterol 40 mg/dl (40-60); Magnesium 2.1 mg/dl (1.6-2.3); Potassium 3.8 mmoL/L (3.5-5.1); Sodium 137 mmol/L (136-145); Total Protein,Serum 6.8 g/dl (6.3-8.2); Triglycerides 66 mg/dl (30-150); VLDL Cholesterol 13 mg/dL (0-40)
[2023-11-12 12:08] LABS: Direct LDL Cholesterol 117.89 mg/dL (100-129)
[2023-11-12 12:28] LABS: Thyroid Stimulating Hormone 2.08 uIU/mL (0.465-4.68)
== END 2023-11-12 23:59 | disposition home or self-care (01) ==
LOC: LAB 09:32
PROVIDERS: PCP Nurse Practitioner Family; Visit Provider Nurse Practitioner
DX: R07.9 Chest pain, unspecified (principal); R06.00 Dyspnea, unspecified; R00.2 Palpitations; E78.5 Hyperlipidemia, unspecified
CPT/HCPCS: 36415; 80048; 80061; 80076; 83735; 84439; 84443; 85025; 93270

== ENCOUNTER 2023-11-20 14:38 | Outpatient (CLI) | payer MEDICAID, SELFPAY ==
[2023-11-20 15:17] LABS: Basophils % 0.7 % (0.1-2.0); Eosinophils # 0.1 K/mm3 (0.0-0.4); Eosinophils % 1.2 % (0.1-12.0); Hematocrit 44.6 % (37.0-47.0); Lymphocytes % 42.1 % (10-50); Mean Corpuscular HGB Conc 33.6 g/dL (31.8-35.4); Mean Corpuscular Hemoglobin 29.8 pg (27.0-31.2); Mean Corpuscular Volume 88.7 fl (81-99); Mean Platelet Volume 8.3 fl (7.4-10.4); Monocytes # 0.3 K/mm3 (0.1-1.0); Monocytes % 5.2 % (1.7-9.3); Neutrophils # 2.4 K/mm3 (1.8-7.8); Neutrophils % 50.9 % (37.0-80.0); Platelet Count 174 K/mm3 (142-424); Red Blood Count 5.03 M/mm3 (4.20-5.40); Red Cell Distribution Width 12.8 % (11.5-17.5); White Blood Count 4.7 K/mm3 (4.8-10.8)
== END 2023-11-20 23:59 ==
LOC: LAB 14:39
PROVIDERS: PCP Nurse Practitioner Family; Visit Provider Nurse Practitioner Women's Health
DX: N93.9 Abnormal uterine and vaginal bleeding, unspecified (principal)
CPT/HCPCS: 36415; 85025

== ENCOUNTER 2023-12-10 13:07 | Outpatient (CLI) | payer MEDICAID, SELFPAY ==
--- NOTE | 2023-12-10 15:34 | CA_ITS ---
APPROVED REPORT Exam: Exercise Treadmill Technologist: Vero Kimbrough Ht: 5 ft 4 in Wt: 119 lbs BSA: 1.57 m2 HR: 83 bpm BP: 118/70 mmHg Rhythm: NSR Indications: Chest pain, abnormal ekg Medical History Medications: No home meds,,,,, Stress Test Details Test: Julio HR Resting HR: 81 bpm Max Heart Rate (APMHR): 193 bpm Max HR Achieved: 172 bpm Target HR (85% APMHR): 164 bpm % of APMHR: 89 Recovery HR: 107 bpm HR response to stress: Normal HR response to stress BP Resting BP: 118.0/70.0 mmHg Max BP: 142.0/88.0 mmHg Recovery BP: 137.0/68.0 mmHg BP response to stress: Normal blood pressure response to stress. ECG Resting ECG: NSR Stress ECG: < 0.[address] depression Arrhythmia: None Recovery ECG: Return to baseline within 3 minutes of recovery Recovery Arrhythmia: None Clinical Exercise duration: 08:41 min Highest Stage Achieved: Exercise capacity: 10.1 METs Overall Exercise Capacity for Age: Average Stress ECG Conclusion Symptoms: Mild shortness of air. Arrhythmias/Ectopy: None ST-T Changes: < 0.[address] changes. Conclusion: Average exercise capacity. No ischemic ECG changes at peak stress. GXT only. Test Summary REST . . . . . . . Sitting REST . . . . . . . Standing REST 02:28 0.0 0.0 81 . 118/ 70 . . Stage 1 01:00 10.0 1.7 110 . . . . Stage 1 02:00 10.0 1.7 121 . . . . Stage 1 02:38 10.0 1.7 110 . . . . Stage 2 01:00 12.0 2.5 133 . 130/ 86 . . Stage 2 02:00 12.0 2.5 144 . 130/ 86 . . Stage 2 03:00 12.0 2.5 140 . 130/ 86 . . Stage 3 01:00 14.0 3.4 160 . . . . Stage 3 02:00 14.0 3.4 169 . 142/ 88 . . Stage 3 03:00 14.0 3.4 169 . 142/ 88 . . Stage 4 00:03 16.0 4.2 170 . . . Stop exercise at 08:41 RECOVERY 01:00 0.0 0.0 145 . . . . RECOVERY 02:00 0.0 0.0 135 . 138/ 78 . . RECOVERY 03:00 0.0 0.0 113 . 137/ 68 . . RECOVERY 03:28 0.0 0.0 108 . 137/ 68 . . Electronically signed by : Alyson Fletcher MD 12/13/2023 14:12:13
== END 2023-12-10 23:59 | disposition home or self-care (01) ==
LOC: RT 13:08
PROVIDERS: PCP Nurse Practitioner Family; Visit Provider Nurse Practitioner
DX: R07.9 Chest pain, unspecified (principal)
CPT/HCPCS: 93017; 93018

== ENCOUNTER 2023-12-12 18:04 | Emergency (ER) | payer MEDICAID, SELFPAY ==
[2023-12-12 18:30] VITALS: BP 104/67; PULSE 93; RESP 20; TEMP 37.1; O2SAT 98; BMI 20.4
[2023-12-12 18:47] LABS: UTC Strep Screen (Rapid) Negative (Negative)
[2023-12-12 18:52] VITALS: BP 104/67; PULSE 93; RESP 20; TEMP 37.1; O2SAT 98
--- NOTE | 2023-12-12 18:59 | ED_ITS ---
Discharge Plan Disposition Patient Disposition: Home, Self-Care Condition: Good Prescriptions Prescriptions: New fluticasone propionate [Flonase Allergy Relief] 50 mcg/actuation spray,suspension 1 - 2 spray intranasal DAILY Qty: 16 0RF Rx Instructions: administer into each nostril pseudoephedrine HCl [Sudafed 12 Hour] 120 mg tablet extended release 120 mg PO Q12H PRN (Reason: nasal congestion) Qty: 20 0RF Referrals Follow up/Referrals: Va Kasper APRN [Primary Care Provider] - See instructions Activity Restrictions/Add. Instructions Additional Instructions/Restrictions: *Monitor Temp, Over the counter Motrin or Tylenol as directed/as needed Tylenol every 4 hours and Motrin every 6 hours (as long as your family doctor has told you that you can take it) for fever or pain. and straight to ER if unable to lower temp less than 101.0 after medication given *Warm salt water gargles may help to soothe the throat *Throat Lozenges? *Warm fluids like tea with honey may help to soothe the throat? *Sleep elevated *Humidifier/Vaporizer *Flonase 2 sprays in each nostril daily but be aware that it may take 2-3 days before you notice improvement Your throat swab was sent for culture. Those results are typically sent to your primary care. Be sure to follow up in 2-3 days with your family doctor/primary care physician if no improvement so they can review those result and treat if necessary. If you don?t have a primary care doctor, I recommend you get one but in the mean time, you will have to return to a walk in clinic Follow up IMMEDIATELY for new or worsening symptoms or no Noticeable improvement over the next 48-72 hours. 911 for difficulty breathing or swallowing You were tested for today for Upper Respiratory Panel with COVID19 your test result should be back in the next 8-24hours, you may check your results on the [facility] Clinical Impressions Clinical Impression: Viral upper respiratory infection Instructions Patient Instructions: DI for Viral Upper Respiratory Infection -- Adult Discharge ED Provider: Mireya Chambers [facility] [place] General Stated complaint: Sore throat Mode of Arrival: Ambulatory Source of Information: Patient Limitations: No Limitations Time Seen by Provider: 12/12/23 18:59 Description of Symptoms (Recalled from Triage Doc. by RN): PATIENT C/O NASAL CONGESTION, SORE THROAT AND BODY ACHES X 2 DAYS HEENT Symptoms (Recalled from RN notes): Yes Resp Symptoms (Recalled from RN notes): No Skin Symptoms (Recalled from RN notes): No MS Symptoms (Recalled from RN notes): No Functional Status (Recalled from RN notes): WNL History of Present Illness Provider Complaint: Pt states that she was recently around family member that was sick and now she isnt feeling well States that she has been having sore throat, nasal congestion and and body aches States today she wasnt feeling any better so she came in to get checked Related Data Previous Rx's Medication Instructions Recorded fluticasone propionate 50 1 - 2 spray intranasal DAILY #16 12/12/23 mcg/actuation nasal grams spray,suspension (Flonase Allergy Relief) pseudoephedrine HCl 120 mg 120 mg PO Q12H PRN nasal 12/12/23 tablet,extended release (Sudafed congestion #20 tabs 12 Hour) Allergies Allergy/AdvReac Type Severity Reaction Status Date / Time Sulfa (Sulfonamide Allergy Verified 11/12/23 09:11 Antibiotics) Worker's Comp Is this a Worker's Comp case?: No [facility] Disclaimer: The information contained in this section may have been updated after the patient was seen, as this information can be updated by other users. Medical History Depression Anxiety Urinary tract infection Migraine Asthma Surgical History History of tonsillectomy Social History Smoking Status: Current every day smoker tobacco type: e-cigarettes alcohol intake: never substance use type: denies use current occupational status: employed Travel in the last 8 weeks: None housing: house ROS Obtained: Yes All systems reviewed & no additional complaints except as documented and Yes Systems reviewed as appropriate & no additional complaints except as documented Constitutional Constitutional: Reports system reviewed and no additional complaints, except as documented, Reports as per HPI, Reports body ache, Reports chills and Reports headache(s) ENT Ears, Nose, Mouth, and Throat: Reports system reviewed and no additional complaints, except as documented, Reports as per HPI, Reports headache(s), Reports nasal congestion, Reports nasal discharge and Reports sore throat Cardiovascular Cardiovascular: Reports system reviewed and no additional complaints, except as documented and Reports as per HPI Neurologic Neurologic: Reports headache(s) Physical Exam General General appearance: alert and in no apparent distress ENT ENT exam: Present mucous membranes moist Expanded ENT Exam Throat exam: Present other (Pharyngeal erythema noted with PND) Respiratory Respiratory exam: Present normal lung sounds bilaterally; Absent respiratory distress or wheezes Cardiovascular Cardiovascular exam: Present regular rate, normal rhythm and normal heart sounds Abdominal Exam Abdominal exam: Present soft and normal bowel sounds; Absent distention or tenderness Neurological Exam Neurological exam: Present alert, oriented X3 and normal gait Medical Decision Making Primo Inquiry Pt receiving controlled substance: No Primo was queried for this patient: No Vital Signs: 12/12/23 18:30 12/12/23 18:52 Temperature 98.8 F 98.8 F Temperature Source Oral Pulse Rate 93 H Pulse Rate [Left Brachial] 93 H Respiratory Rate 20 20 Blood Pressure 104/67 L Blood Pressure [Left Arm] 104/67 L Blood Pressure Mean [Left Arm] 79 Blood Pressure Source [Left Arm] Automatic Cuff Blood Pressure Position [Left Arm] Sitting 02 Sat by Pulse Oximetry 98 Oxygen Delivery Method Room Air Lab Data Lab results reviewed: Yes I reviewed the patient's lab results. Lab Results 12/12/23 18:37: Strep Scn Rapid Clinic Negative Orders (Tests/Meds): ORDERS Category Date Time Status Full Resp Panel w/COVID ([facility]) Routine Lab 12/12/23 18:59 Ordered Strep Screen Confirmation Stat Micro 12/12/23 18:37 Received
[2023-12-12 19:34] LABS: Adenovirus,PCR Not Detected (NotDetected); Bordetella Pertussis Not Detected (NotDetected); Chlamydophila Pneumoniae, PCR Not Detected (NotDetected); Coronavirus 19, PCR Not Detected (NotDetected); Coronavirus 229E Not Detected (NotDetected); Coronavirus NL63 Not Detected (NotDetected); Coronavirus OC43 Not Detected (NotDetected); Coronovirus HKU1,PCR Not Detected (NotDetected); Human Metapneumovirus Not Detected (NotDetected); Influenza A, PCR Not Detected (NotDetected); Influenza AH1, 2009 Not Detected (NotDetected); Influenza AH1, PCR Not Detected (NotDetected); Influenza AH3,PCR Not Detected (NotDetected); Influenza B, PCR Not Detected (NotDetected); Mycoplasma Pneumoniae, PCR Not Detected (NotDetected); Parainfluenza 1, PCR Not Detected (NotDetected); Parainfluenza 2, PCR Not Detected (NotDetected); Parainfluenza 3, PCR Not Detected (NotDetected); Parainfluenza 4, PCR Not Detected (NotDetected); Respiratory Syncytial Virus Not Detected (NotDetected); Rhinovirus/Enterovirus Not Detected (NotDetected)
== END 2023-12-12 19:15 | disposition home or self-care (01) ==
PROVIDERS: Emergency Provider Nurse Practitioner; PCP Nurse Practitioner Family
DX: R07.0 Pain in throat (principal); J06.9 Acute upper respiratory infection, unspecified; B34.9 Viral infection, unspecified
CPT/HCPCS: 87581; 87632; 87635; 87798; 87880; 99212; 99214; G0463

== ENCOUNTER 2023-12-24 11:03 | Outpatient (CLI) | payer MEDICAID, SELFPAY ==
--- NOTE | 2023-12-24 11:04 | CA_ITS ---
APPROVED REPORT EXAM: Comprehensive 2D, Doppler, and color-flow Echocardiogram Telephone Sex Worker: Stephanie Caballero RDCS Ht: 5 ft 4 in Wt: 118lbs BSA: 1.56 BP: 114/66 mmHg Indications: CP,ABN EKG M-Mode Dimensions RVDd 2.45 cm (0.9-2.6) LA Diam 2.66 cm (1.9-4.0) LVDd 4.39 cm (3.5-5.7) LVDs 3.20 cm (3.5-5.7) IVSd 0.62 cm (0.6-1.1) PWd 0.48 cm (0.6-1.1) EF (Teich) 53.00% FS 27.10% EDV (Teich) 87.20 mL ESV (Teich) 41.00 mL LV Diastology E Decel Time 213 (160-240 msec) E/A Ratio 1.9 Mitral Valve MV E Max Sebastian. 89.0 (40-130 cm/s) MV A Velocity 47.0 (40-130 cm/s) E/A Ratio 1.88 MV PHT 62.0 ms Left Ventricle The left ventricle is normal size. The left ventricular systolic function is normal. The left ventricular ejection fraction is within the normal range. There is normal left ventricular wall thickness. There is normal LV segmental wall motion. The left ventricular diastolic function is normal. LVEF is 55%. Right Ventricle The right ventricle is normal size. The right ventricular systolic function is normal. Atria The left atrium size is normal. The right atrium size is normal. There is no Doppler evidence of interatrial shunt. Aortic Valve The aortic valve opens well. There is no aortic valvular stenosis. No aortic regurgitation is present. Mitral Valve The mitral valve is normal in structure. No evidence of mitral valve stenosis. There is no mitral valve regurgitation noted. Tricuspid Valve The tricuspid valve leaflets are thin and pliable. Trace tricuspid regurgitation. There is insufficient TR jet to estimate RVSP. Pulmonic Valve The pulmonary valve is normal in structure. Trace pulmonic regurgitation. Great Vessels The aortic root is normal in size. The ascending aorta is normal in size. IVC is normal in size and collapses >50% with inspiration. Pericardium There is no pericardial effusion. Other Information Study Quality: Adequate Conclusion Normal biventricular systolic function. No significant valvular stenosis or regurgitation. Electronically signed by : Alyson Fletcher MD 12/24/2023 13:10:21
== END 2023-12-24 23:59 | disposition home or self-care (01) ==
LOC: RT 11:04
PROVIDERS: PCP Nurse Practitioner Family; Visit Provider Nurse Practitioner
DX: R94.31 Abnormal electrocardiogram [ECG] [EKG] (principal); R07.9 Chest pain, unspecified; R06.00 Dyspnea, unspecified; R00.2 Palpitations
CPT/HCPCS: 93306

== ENCOUNTER 2023-12-24 11:30 | Emergency (ER) | payer MEDICAID, SELFPAY ==
[2023-12-24 11:40] VITALS: BP 110/67; PULSE 91; RESP 20; TEMP 36.8; O2SAT 100; BMI 21.2
--- NOTE | 2023-12-24 11:56 | EXP.UTC ---
Discharge Plan Disposition Patient Disposition: Home, Self-Care Condition: Good Prescriptions Prescriptions: New cefdinir 300 mg capsule 300 mg PO BID Qty: 20 0RF phenazopyridine [Pyridium] 200 mg tablet 200 mg PO Q8H 2 Days Qty: 6 0RF No Action fluticasone propionate [Flonase Allergy Relief] 50 mcg/actuation spray,suspension 1 - 2 spray intranasal DAILY Qty: 16 0RF Rx Instructions: administer into each nostril pseudoephedrine HCl [Sudafed 12 Hour] 120 mg tablet extended release 120 mg PO Q12H PRN (Reason: nasal congestion) Qty: 20 0RF Referrals Follow up/Referrals: Va Kasper APRN [Primary Care Provider] - See instructions Activity Restrictions/Add. Instructions Additional Instructions/Restrictions: *Increase fluids. Water not Soda or Tea *Start antibiotic immediately and be sure to take as ordered for the FULL length of time although you should start to see improvement over the next 48 hours *Pyridium as needed Remember this medication will turn your urine . This is normal but it will stain what ever it gets on *You should not use Pyridium for more than 48 hours. If so , follow up with your primary physician to review urine culture and ensure that antibiotic is adequate for infection *Be SURE to follow up anytime for new or worsening symptoms with your family doctor. AND in 48 hours for urine culture results with your family doctor, if you do not have a doctor then you may call back to the [facility] for urine culture results and further treatment. We do recommend that you choose and establish care with a Primary Care Physician. ?AND follow up with them ?in 10-14 days to repeat UA to ensure infection is resolved and blood no longer present *Be sure to let your PCP know that we sent urine cultures from the [facility] so they can follow up to ensure that you area the on the correct antibiotic Call your doctor office and make appointment for 48 hours (2 days from today) ?to follow up and get the results of your urine culture and further treatment Clinical Impressions Clinical Impression: UTI (urinary tract infection) Instructions Patient Instructions: DI for Urinary Tract Infection (UTI), Cefdinir Discharge ED Provider: Mireya [place] [facility] [place] General Stated complaint: frequent and discomfort while urinating Mode of Arrival: Ambulatory Source of Information: Patient Limitations: No Limitations Time Seen by Provider: 12/24/23 11:56 Description of Symptoms (Recalled from Triage Doc. by RN): PATIENT C/O PAIN WITH URINATION X 2 DAYS HEENT Symptoms (Recalled from RN notes): No Resp Symptoms (Recalled from RN notes): No Skin Symptoms (Recalled from RN notes): No MS Symptoms (Recalled from RN notes): No Functional Status (Recalled from RN notes): WNL History of Present Illness Provider Complaint: Patient states that for the last couple of days she has been having burning with urination, feeling or urgency and frequency and pressure like she has to go States today she wasnt feeling any better so she came in Related Data Previous Rx's Medication Instructions Recorded fluticasone propionate 50 1 - 2 spray intranasal DAILY #16 12/12/23 mcg/actuation nasal grams spray,suspension (Flonase Allergy Relief) pseudoephedrine HCl 120 mg 120 mg PO Q12H PRN nasal 12/12/23 tablet,extended release (Sudafed congestion #20 tabs 12 Hour) cefdinir 300 mg capsule 300 mg PO BID #20 caps 12/24/23 phenazopyridine 200 mg tablet 200 mg PO Q8H pain 2 days #6 tabs 12/24/23 (Pyridium) Allergies Allergy/AdvReac Type Severity Reaction Status Date / Time Sulfa (Sulfonamide Allergy Verified 12/17/23 09:19 Antibiotics) Worker's Comp Is this a Worker's Comp case?: No [facility] Disclaimer: The information contained in this section may have been updated after the patient was seen, as this information can be updated by other users. Medical History (Updated 12/24/23 @ 12:03 by Mireya Chambers APRN) Hyperlipidemia Depression Anxiety Urinary tract infection Migraine Asthma Surgical History History of tonsillectomy Social History Smoking Status: Current every day smoker tobacco type: e-cigarettes alcohol intake: never substance use type: denies use current occupational status: employed Travel in the last 8 weeks: None housing: house ROS Obtained: Yes All systems reviewed & no additional complaints except as documented and Yes Systems reviewed as appropriate & no additional complaints except as documented Constitutional Constitutional: Reports system reviewed and no additional complaints, except as documented, Reports as per HPI, Denies body ache, Denies chills and Denies fever(s) Cardiovascular Cardiovascular: Reports system reviewed and no additional complaints, except as documented and Reports as per HPI Respiratory Respiratory: Reports system reviewed and no additional complaints, except as documented and Reports as per HPI Gastrointestinal Gastrointestingal: Reports system reviewed and no additional complaints, except as documented and as per HPI; Denies abdominal pain, cramping, diarrhea, nausea or vomiting Genitourinary Female Genitourinary: Reports system reviewed and no additional complaints, except as documented, Reports as per HPI, Reports dysuria, Reports urinary frequency and Reports urinary urgency Musculoskeletal Musculoskeletal: Reports system reviewed and no additional complaints, except as documented and Reports as per HPI Physical Exam General General appearance: alert and in no apparent distress ENT ENT exam: Present mucous membranes moist Respiratory Respiratory exam: Present normal lung sounds bilaterally; Absent respiratory distress or wheezes Cardiovascular Cardiovascular exam: Present regular rate, normal rhythm and normal heart sounds Abdominal Exam Abdominal exam: Present soft and normal bowel sounds; Absent distention or tenderness Neurological Exam Neurological exam: Present alert, oriented X3 and normal gait Medical Decision Making Primo Inquiry Pt receiving controlled substance: No Primo was queried for this patient: No Vital Signs: 12/24/23 11:40 Temperature 98.2 F Temperature Source Oral Pulse Rate [Left Brachial] 91 H Respiratory Rate 20 Blood Pressure [Left Arm] 110/67 Blood Pressure Mean [Left Arm] 81 Blood Pressure Source [Left Arm] Automatic Cuff Blood Pressure Position [Left Arm] Sitting 02 Sat by Pulse Oximetry 100 Oxygen Delivery Method Room Air Lab Data Lab results reviewed: Yes I reviewed the patient's lab results. Orders (Tests/Meds): ORDERS Category Date Time Status Urine Culture Stat Micro 12/24/23 11:53 Ordered Medical Decision Narrative: Patient states she is getting off her period still having some spotting
[2023-12-24 11:57] LABS: Apearance,Urine Turbid (Clear); Blood, Urine 3+ (Negative); Color,Urine Dark Yellow (Yellow); Glucose,Urine (UA) Negative (Negative); Ketones,Urine Negative (Negative); Protein,Urine 2+ (Negative)
[2023-12-24 11:58] VITALS: BP 110/67; PULSE 91; RESP 20; TEMP 36.8; O2SAT 100
[2023-12-24 11:58] LABS: Bilirubin,Urine Negative (Negative); UTC Leukocyte Esterase,Urine 1+ (Negative); UTC Nitrate,Urine Positive (Negative); Urobilinogen,Urine 0.2 EU/dl (0.2)
== END 2023-12-24 12:09 | disposition home or self-care (01) ==
PROVIDERS: Emergency Provider Nurse Practitioner; PCP Nurse Practitioner Family
DX: N39.0 Urinary tract infection, site not specified (principal); B96.29 Other Escherichia coli [E. coli] as the cause of diseases classified elsewhere; R30.0 Dysuria; R35.0 Frequency of micturition
CPT/HCPCS: 81003; 87086; 87088; 87186; 99212; 99214; G0463

== ENCOUNTER 2024-04-04 10:29 | Outpatient (CLI) | payer MEDICAID, SELFPAY | END 2024-04-04 23:59 | disposition home or self-care (01) | LOC: RT 10:30 | PROVIDERS: PCP Nurse Practitioner Family; Visit Provider Nurse Practitioner Family | DX: R42 Dizziness and giddiness (principal) | CPT/HCPCS: 93225; 93226 ==

== ENCOUNTER 2024-05-01 13:38 | Outpatient (CLI) | payer MEDICAID, SELFPAY ==
--- NOTE | 2024-05-01 | CA_ITS ---
APPROVED REPORT Exam: Exercise Treadmill Technologist: Sarah Maldonado, Ht: 5 ft 4 in Wt: 114 lbs BSA: 1.54 m2 HR: 81 bpm BP: 106/61 mmHg Rhythm: NSR, T wave abns Medical History Medications: SyMBICORT,,,,, Albuterol,,,,, Vit B12,,,,, Levocetirizine,,,,, Epinephrine,,,,, Cardiac Risk Factors: Hyperlipidemia, Smoking Stress Test Details Test: Mitali HR Resting HR: 86 bpm Max Heart Rate (APMHR): 192 bpm Max HR Achieved: 178 bpm Target HR (85% APMHR): 163 bpm % of APMHR: 93 Recovery HR: 123 bpm HR response to stress: Normal HR response to stress BP Resting BP: 109.0/67.0 mmHg Max BP: 136.0/60.0 mmHg Recovery BP: 113.0/71.0 mmHg BP response to stress: Normal blood pressure response to stress. ECG Resting ECG: NSR, T wave abns Stress EC.[address] depression Arrhythmia: None Recovery ECG: Return to baseline within 3 minutes of recovery Recovery Arrhythmia: None Clinical Exercise duration: 09:32 min Highest Stage Achieved: Exercise capacity: 10.1 METs Overall Exercise Capacity for Age: Average Stress ECG Conclusion During mitali protocol pt exercised 9:32 minutes. Mildy light headed on treadmill. No CP noted. No arrhythmias noted. ST changes: No significant ST changes Conclusion: Average exercise capacity. No ischemic ECG changes at peak stress. Stress echo images reported separately. Test Summary REST . . . . . . . Sitting REST . . . . . . . Standing REST 03:30 0.0 0.0 86 . 109/ 67 . . Stage 1 01:00 10.0 1.7 112 . . . . Stage 1 02:00 10.0 1.7 101 . . . . Stage 1 03:00 10.0 1.7 109 . . . . Stage 2 01:00 12.0 2.5 117 . 120/ 65 . . Stage 2 02:00 12.0 2.5 124 . 120/ 65 . . Stage 2 03:00 12.0 2.5 135 . 128/ 62 . . Stage 3 01:00 14.0 3.4 151 . . . . Stage 3 02:00 14.0 3.4 159 . . . . Stage 3 03:00 14.0 3.4 162 . 136/ 60 . . Stage 4 00:32 16.0 4.2 176 . . . Stop exercise at 09:32 RECOVERY 01:00 0.0 0.0 131 . . . . RECOVERY 02:00 0.0 0.0 112 . . . . RECOVERY 03:00 0.0 0.0 107 . 113/ 71 . . RECOVERY 04:00 0.0 0.0 98 . 118/ 69 . . RECOVERY 05:00 0.0 0.0 101 . 118/ 69 . . RECOVERY 05:19 0.0 0.0 99 . 112/ 66 . . Electronically signed by : Alyson Fletcher MD 05/04/2024 20:47:11
--- NOTE | 2024-05-01 13:44 | CA_ITS ---
APPROVED REPORT EXAM: Comprehensive 2D, Doppler, and color-flow Echocardiogram Log Washer: Bhavna Carrasco RT(R) Ht: 5 ft 4 in Wt: 114lbs BSA: 1.54 BP: 129/68 mmHg Indications: CP, near syncope, palpitations, smoker, DYE, hyperlipidemia, abn EKG. Echo Procedure The patient underwent an Exercise Stress Test using the Julio Protocol. Blood pressure, heart rate, and EKG were monitored. An Echocardiogram was performed by lead manufacturing technician in four stages in quad fashion. At peak stress, four selected images were obtained and placed side by side with resting images for comparison. Stress Test Details Test: Exercise stress testing was performed using a Julio protocol. HR Resting HR: 86 bpm Max Heart Rate (APMHR): 192 bpm Max HR Achieved: 178 bpm Target HR (85% APMHR): 163 bpm % of APMHR: 93 Recovery HR: 123 bpm HR response to stress: Normal HR response to stress BP Resting BP: 109/67 mmHg Max BP: 136/60 mmHg BP response to stress: Normal blood pressure response to stress ECG Resting ECG: Normal sinus rhythm, T wave abnormalities Stress EC.[address] depressionm Arrhythmia: None Recovery ECG: Return to baseline within 3 minutes of recovery Recovery Arrhythmia: None Clinical Reason for Termination: Generalized fatigue Exercise duration: 9:32 min Echo Findings The Pre-Stress Echocardiogram showed normal left ventricular contractility with an estimated Ejection Fraction of about 55%. No regional wall motion abnormalities are noted at rest. The Post-Stress Echocardiogram showed normal left ventricular contractility with an estimated Ejection Fraction of about 65%. No regional wall motion abnormalities are noted at peak stress. Other Information Study Quality: Adequate Conclusion Average exercise capacity compared to age and sex matched peers. No ischemic ECG changes at peak stress on treadmill ECG stress testing. No wall motion abnormalities are noted on stress echo at peak stress Electronically signed by : Alyson Fletcher MD 05/04/2024 20:51:21
== END 2024-05-01 23:59 | disposition home or self-care (01) ==
LOC: RT 13:39
PROVIDERS: PCP Nurse Practitioner Family; Visit Provider Nurse Practitioner Family
DX: R07.9 Chest pain, unspecified (principal); R06.00 Dyspnea, unspecified
CPT/HCPCS: 93017; 93018; 93350

== ENCOUNTER 2024-05-06 10:18 | Outpatient (CLI) | payer MEDICAID, SELFPAY ==
[2024-05-06 10:42] LABS: Eosinophils # 0.1 K/mm3 (0.0-0.4); Eosinophils % 1.4 % (0.1-12.0); Hematocrit 43.5 % (37.0-47.0); Hemoglobin 14.7 g/dL (12.2-16.2); Lymphocytes # 1.5 K/mm3 (0.7-4.5); Lymphocytes % 41.5 % (10-50); Mean Corpuscular HGB Conc 33.8 g/dL (31.8-35.4); Mean Corpuscular Hemoglobin 29.8 pg (27.0-31.2); Mean Corpuscular Volume 88.2 fl (81-99); Mean Platelet Volume 8.5 fl (7.4-10.4); Monocytes # 0.2 K/mm3 (0.1-1.0); Monocytes % 4.9 % (1.7-9.3); Neutrophils # 1.9 K/mm3 (1.8-7.8); Neutrophils % 51.2 % (37.0-80.0); Platelet Count 170 K/mm3 (142-424); Red Blood Count 4.93 M/mm3 (4.20-5.40); Red Cell Distribution Width 13.1 % (11.5-17.5); White Blood Count 3.6 K/mm3 (4.8-10.8)
[2024-05-06 12:39] LABS: Vitamin B12 979 pg/mL (239-931)
== END 2024-05-06 23:59 | disposition home or self-care (01) ==
PROVIDERS: PCP Nurse Practitioner Family; Visit Provider Nurse Practitioner Family
DX: E53.8 Deficiency of other specified B group vitamins (principal)
CPT/HCPCS: 36415; 82607; 85025

== ENCOUNTER 2024-05-14 11:33 | Outpatient (CLI) | payer MEDICAID, SELFPAY ==
[2024-05-14 13:45] LABS: Folate 7.63 ng/mL
[2024-05-16 11:41] LABS: Peripheral Smear Review Scanned Result
== END 2024-05-14 23:59 | disposition home or self-care (01) ==
LOC: LAB 11:34
PROVIDERS: Internal Medicine; PCP Nurse Practitioner Family; Visit Provider Internal Medicine Medical Oncology
DX: D64.9 Anemia, unspecified (principal)
CPT/HCPCS: 36415; 82746

== ENCOUNTER 2024-05-19 08:54 | Outpatient (CLI) | payer MEDICAID, SELFPAY ==
--- NOTE | 2024-05-19 08:56 | CT_ITS ---
APPROVED REPORT Minute Clerk: CLINICAL INDICATION Chest Pain TECHNIQUE Image Acquisition: A 128 slice MDCT scanner ([employer] View) was used for data acquisition. A noncontrast coronary calcium scan was performed. A CT attenuation threshold of 130 Hounsfield units (HU) was used for the detection of calcium in contiguous voxels of 1 sq mm in area to be counted as individual lesions. Bolus tracking in the ascending aorta with a threshold of 180 HU was performed. Immediately afterwards, ECG synchronized cardiac CT was then performed from the cardiac base to apex using retrospective gating with ECG tube current modulation. A total of 85 mL of Isovue 370 mg/mL contrast medium was administered at 5 mL/sec followed by a saline flush using a biphasic injection protocol. A tube voltage of 120 KVp was used. The patient received the following medications prior to the cardiac CT. 0.4 mg of sublingual nitroglycerin The average heart rate at the time of acquisition was 76 bpm and regular. Image Reconstruction Transaxial images were reconstructed at 0.67 mm slide thickness. Data was reviewed interactively on an advanced workstation capable of 2 and 3-dimensional displays in all conventional reconstruction formats, including multiplanar reformations, maximum intensity projections, curved multiplanar reformations, and volume rendered reconstructions. When applicable, selected routine images describing the relevant coronary anatomy and pathology were saved and sent to PACS. Complications None Technical Quality Overall image quality was good. Coronary artery opacification was adequate. Total DLP (Dose-Length Product) is 2139.6 mGy-cm. The reported value represents the total of one or more individual components during the CT acquisition of this date and at this time, and as such, the same value may appear in more than one CT report depending on the interpreting/reporting physicians. COMPARISON None FINDINGS CT Coronary Calcium Scoring LMA (Left Main Artery) = 0 LAD (Left Anterior Descending) = 0 LCX (Left Coronary Circumflex) = 0 RCA (Right Coronary Artery) = 0 Total Calcium Score = 0 using the AJ-130 method. The interpretation of the calcium heart score is based on the following continuum*: 0 = no calcified plaque detected (risk of coronary artery disease is very low ??? less than 5%) 1-10 = calcium detected in extremely minimal levels (risk of coronary diseases is still low ??? less than 10%) 11-100 = mild levels of plaque detected with certainty (mild or minimal narrowing of heart arteries is likely) 101-400 = definite,at least moderate levels of plaque detected (relatively high risk of a heart attack within 3-5 years) >401-999 = extensive levels of plaque detected (high risk of heart attack, high levels of vascular disease are present, high likelihood of at least one significant coronary narrowing) *The calcium heart score quantifies the burden of coronary calcification/plaque in the coronary arteries. The calcium heart score is not able to evaluate the presence or burden of non-calcified (i.e. soft) plaque. There is no identifiable calcification in the aortic valve, mitral annulus or mitral valve, pericardium, or myocardium. Coronary CT Angiography The coronary arterial system is right dominant. Quantitative Stenosis Grading: Left Main (LM): The left main originates normally from the left sinus of Valsalva. The LM bifurcates into the left anterior descending artery and left circumflex artery. The LM is patent with no evidence of atherosclerosis. Left Anterior Descending (LAD) and Diagonal Branches: The LAD gives off 3 diagonal branch(es). The LAD and its branches are patent with no evidence of atherosclerosis. There is no evidence of LAD-myocardial bridge. Left Circumflex (LCX) and Obtuse Marginals (OM): The LCX gives off 2 Obtuse Marginal (OM) branch(es). The LCX and its branches are patent with no evidence of atherosclerosis. Right Coronary Artery (RCA): The RCA originates normally from the right sinus of Valsalva. The RCA gives off a posterior descending artery (PDA) and posterolateral (PL) branches. The RCA and its branches are patent with no evidence of atherosclerosis. Non-Coronary Cardiac Findings: Analysis of the left ventricular (LV) structure and function was performed after 3-D reconstruction of the LV from axial images, with user-corrected automatic contouring for assessment of LV volumes and user-defined reconstruction from oblique planes for measurement of 3-D cardiac structure and function. -The left ventricle systolic function is normal. -There is no left atrial appendage filling defect. Two right pulmonary veins and two left pulmonary veins drain normally into the left atrium. -No pericardial thickening or calcification. -Central and branch pulmonary arteries in the [id number] are unremarkable. -Thoracic aorta within the visualized thoracic aortic-branches in the [id number] is unremarkable. Extracardiac Structures No significant extra-cardiac findings. Note, however, that this study is focused on the cardiac findings. IMPRESSION -Absence of coronary calcification with an Agatston score = 0 using the AJ-130 method. -No evidence of significant flow-limiting atherosclerosis of the coronary arteries. -No evidence of coronary anomalies or myocardial bridges. -CAD-RADS 0. Management recommendations per ACC/AHA guidelines*, as clinically appropriate. *Recommendations: CAD RADS 0: Reassurance. Consider non-atherosclerotic causes of chest pain. CAD RADS 1: Consider non-atherosclerotic causes of chest pain. Consider preventive therapy and risk factor modification. CAD RADS 2: Consider non-atherosclerotic causes of chest pain. Consider preventive therapy and risk factor modification, particularly for patients with nonobstructive plaque in multiple segments. CAD RADS 3: Consider further functional testing. Consider symptom-guided anti-ischemic and preventive pharmacotherapy as well as risk factor modification per published guideline statements. CAD RADS 4A: Consider further functional testing or invasive coronary angiography with revascularization per published guideline statements. Consider symptom-guided anti-ischemic and preventive pharmacotherapy as well as risk factor modification per published guideline statements. CAD RADS 4B: Invasive coronary angiography recommended with revascularization per published guideline statements. Consider symptom-guided anti-ischemic and preventive pharmacotherapy as well as risk factor modification per published guideline statements. CAD RADS 5: Consider invasive angiography and/or viability assessment with revascularization per published guideline statements. Consider symptom-guided anti-ischemic and preventive pharmacotherapy as well as risk factor modification per published guideline statements. CRITICAL RESULT None COMMUNICATION Per this written report The coronary and cardiac findings of this CCTA were reviewed, reported, and signed by Kirit Fletcher MD (Caterers Helper) Conclusion Electronically signed by : Alyson Fletcher MD 05/20/2024 11:50:30
[2024-05-19 09:04] VITALS: BMI 20.3
[2024-05-19 09:23] LABS: Urine Pregnancy, HCG Qual. Negative (Negative)
[2024-05-19 09:28] LABS: Chloride 105 mmol/L (98-107)
[2024-05-19 09:29] LABS: Potassium 3.7 mmoL/L (3.5-5.1); Sodium 137 mmol/L (136-145)
[2024-05-19 09:31] LABS: Blood Urea Nitrogen 6 mg/dl (7-17); Creatinine Clearance Estimated 99 mL/min (50-200); Estimated Glomerular Filt Rate 100 ml/min (>60); GFR (African American) 121 ML/MIN (>60)
[2024-05-19 09:32] LABS: Anion Gap 8.7 mEq/L (5-15); Calcium 9.2 mg/dl (8.4-10.2); Carbon Dioxide 27 mmol/L (22.0-30.0); Glucose 85 mg/dl (74-100)
[2024-05-19 10:04] VITALS: BP 104/72; PULSE 49; RESP 18; O2SAT 99
[2024-05-19 10:07] VITALS: BP 114/69; PULSE 49; RESP 18; O2SAT 100
[2024-05-19] MEDS: NITROGLYCERIN 0.4MG SL TABLET SL (10:07)
[2024-05-19 10:10] VITALS: BP 89/49; PULSE 60; RESP 18; O2SAT 100
[2024-05-19 10:13] VITALS: BP 105/54; PULSE 60; RESP 18; O2SAT 100
[2024-05-19 10:15] VITALS: BP 90/57; PULSE 60; RESP 18; O2SAT 99
[2024-05-19] MEDS: IOPAMIDOL-370 (76%);100ML BOTTLE 85 ML IV (10:17)
[2024-05-19] MEDS: 0.9 % SODIUM CHLORIDE 50 ML VIAL IV (10:17)
[2024-05-19] MEDS: SODIUM CHLORIDE 0.9% 10ML SYR (RAD ONLY) 10 ML IV (10:17)
[2024-05-19 10:20] VITALS: BP 106/66; PULSE 78; RESP 18; O2SAT 99
== END 2024-05-19 10:20 | disposition home or self-care (01) ==
PROVIDERS: PCP Nurse Practitioner Adult Health; Visit Provider Nurse Practitioner Family
DX: R07.9 Chest pain, unspecified (principal); R06.00 Dyspnea, unspecified
CPT/HCPCS: 75574; 80048; 81025; Q9967

== ENCOUNTER 2024-06-20 15:15 | Emergency (ER) | payer MEDICAID, SELFPAY ==
[2024-06-20 15:40] VITALS: BP 117/73; PULSE 68; RESP 19; TEMP 36.8; O2SAT 98; BMI 20.2
--- NOTE | 2024-06-20 15:58 | EXP.UTC ---
Discharge Plan Disposition Patient Disposition: Home, Self-Care Condition: Good Prescriptions Prescriptions: New ondansetron 4 mg Tablet,Disintegrating 4 mg PO Q8H PRN (Reason: Nausea) Qty: 12 0RF No Action minocycline 100 mg capsule 100 mg PO DAILY spironolactone 25 mg tablet 25 mg PO DAILY clindamycin phosphate 1 % solution 1 applic TOPICAL DAILY levocetirizine 5 mg tablet 5 mg PO DAILY Referrals Follow up/Referrals: Va Kasper APRN [Primary Care Provider] - See instructions Activity Restrictions/Add. Instructions Additional Instructions/Restrictions: Drink plenty of fluids. Water or an electrolyte drink like pedialyte would be best. Take tylenol or ibuprofen for pain or fever. Take the medications as directed. Follow up with your regular doctor. GO TO THE ER FOR ANY WORSENING SYMPTOMS Clinical Impressions Clinical Impression: Gastroenteritis Stand Alone Forms Stand Alone Forms: Work/School Release Instructions Patient Instructions: Viral Gastroenteritis, DI for Viral Gastroenteritis -- Adult, Ondansetron Print Language Print Language: Macedonian Discharge ED Provider: Lyndon Arias [facility] [place] General Stated complaint: vomiting diarrhea Mode of Arrival: Ambulatory Source of Information: Patient Limitations: No Limitations Time Seen by Provider: 06/20/24 15:57 Description of Symptoms (Recalled from Triage Doc. by RN): PATIENT C/O VOMITING, DIARRHEA, AND BODY ACHES SINCE YESTERDAY HEENT Symptoms (Recalled from RN notes): No Resp Symptoms (Recalled from RN notes): No Skin Symptoms (Recalled from RN notes): No MS Symptoms (Recalled from RN notes): No Functional Status (Recalled from RN notes): WNL Related Data Home Medications ?Medication ?Instructions ?Recorded ?Confirmed clindamycin phosphate 1 % topical 1 applic topical DAILY 06/20/24 06/20/24 solution levocetirizine 5 mg tablet 5 mg PO DAILY 06/20/24 06/20/24 minocycline 100 mg capsule 100 mg PO DAILY 06/20/24 06/20/24 spironolactone 25 mg tablet 25 mg PO DAILY 06/20/24 06/20/24 Previous Rx's ?Medication ?Instructions ?Recorded ondansetron 4 mg disintegrating 4 mg PO Q8H PRN Nausea #12 tabs 06/20/24 tablet Allergies Allergy/AdvReac Type Severity Reaction Status Date / Time Sulfa (Sulfonamide Allergy Hives Verified 06/09/24 09:54 Antibiotics) Worker's Comp Is this a Worker's Comp case?: No [facility] Disclaimer: The information contained in this section may have been updated after the patient was seen, as this information can be updated by other users. Medical History Cystic breast PCOS (polycystic ovarian syndrome) Hypoglycemia Near syncope Hyperlipidemia Depression Anxiety Urinary tract infection Migraine Asthma Surgical History History of tonsillectomy Family History Grandmother Anemia Cancer Family/Other Cancer Father No problems noted. Grandfather Coronary artery disease Heart attack Mother Thyroid disorder Social History Smoking Status: Current every day smoker tobacco type: e-cigarettes alcohol intake: current alcohol intake frequency: holidays/special occasions only counseling provided: provider counseling substance use type: denies use current occupational status: employed Travel in the last 8 weeks: None housing: house ROS Obtained: Yes All systems reviewed & no additional complaints except as documented Constitutional Constitutional: Denies chills, Denies fever(s) and Reports poor appetite ENT Ears, Nose, Mouth, and Throat: Denies dizziness and Denies sore throat Cardiovascular Cardiovascular: Denies dyspnea Respiratory Respiratory: Denies chest congestion, Denies cough and Denies dyspnea Gastrointestinal Gastrointestingal: Reports as per HPI Genitourinary Female Genitourinary: Denies difficulty voiding, Denies dysuria, Denies hematuria, Denies urinary frequency, Denies urinary incontinence, Denies urinary hesitancy and Denies urinary urgency Musculoskeletal Musculoskeletal: Denies arthralgias Integumentary/Breasts Skin/Breast: Denies rash Neurologic Neurologic: Denies dizziness Physical Exam General General appearance: alert and in no apparent distress Head Head exam: atraumatic and normocephalic Eye Eye exam: Present normal appearance, PERRL and EOMI ENT ENT exam: Present normal exam, normal oropharynx, mucous membranes moist, TM's normal bilaterally and normal external ear exam Neck Neck exam: Present normal inspection, full ROM and trachea midline; Absent tenderness, meningismus or lymphadenopathy Chest Chest inspection: Present normal inspection and symmetric chest wall rise; Absent tenderness, rash or abscess Respiratory Respiratory exam: Present normal lung sounds bilaterally; Absent respiratory distress, wheezes or stridor Cardiovascular Cardiovascular exam: Present regular rate and normal rhythm; Absent irregular rhythm, systolic murmur, diastolic murmur or JVD Abdominal Exam Abdominal exam: Present soft and hyperactive bowel sounds; Absent distention, tenderness, guarding, rebound, rigidity, psoas sign, obturator sign, heel tap sign, Ruiz's sign, Rovsing's sign or tenderness at McBurney's Point Extremities Exam Extremities exam: Present normal inspection and full ROM; Absent tenderness Back Exam Back exam: Present normal inspection and full ROM; Absent tenderness, CVA tenderness (R) or CVA tenderness (L) Neurological Exam Neurological exam: Present alert, oriented X3 and CN II-XII intact Psychiatric Psychiatric exam: Present normal affect and normal mood Skin Skin exam: Present warm, dry, intact and normal color Lymphatic Lymphatic Findings: no adenopathy Medical Decision Making Medical Records Medical records reviewed: No I reviewed the patient's medical records. Screening: Per USPSTF and CDC recommendations, given the prevalence of disease in our region, it is our hospital?s policy to screen for HIV and viral Hepatitis for all patients aged 18 and over and those with ongoing risk factors. Primo Inquiry Pt receiving controlled substance: No Vital Signs: 06/20/24 15:40 Temperature 98.3 F Temperature Source Oral Pulse Rate [Left Brachial] 68 Respiratory Rate 19 Blood Pressure [Left Arm] 117/73 Blood Pressure Mean [Left Arm] 87 Blood Pressure Source [Left Arm] Automatic Cuff Blood Pressure Position [Left Arm] Sitting 02 Sat by Pulse Oximetry 98 Oxygen Delivery Method Room Air
[2024-06-20 16:25] VITALS: BP 117/73; PULSE 68; RESP 19; TEMP 36.8; O2SAT 98
== END 2024-06-20 16:27 | disposition home or self-care (01) ==
PROVIDERS: Emergency Provider Nurse Practitioner Family; PCP Nurse Practitioner Family
DX: K52.9 Noninfective gastroenteritis and colitis, unspecified (principal)
CPT/HCPCS: 99213; G0381

== ENCOUNTER 2024-07-01 12:47 | Emergency (ER) | payer MEDICAID, SELFPAY ==
[2024-07-01 12:56] VITALS: BP 122/70; PULSE 78; RESP 18; TEMP 37.1; O2SAT 100; BMI 21.0
--- NOTE | 2024-07-01 13:09 | ED_ITS ---
Discharge Plan Prescriptions Prescriptions: No Action tretinoin [Retin-A] 0.025 % cream 0.025 applic TOPICAL DIRECTED Patient Comments: APPLY A PEA SIZE AMOUNT TO FACE AT BEDTIME, FOLLOW WITH MOISTURIZER etonogestrel-ethinyl estradiol [EluRyng] 0.12-0.015 mg/24 hr ring 0.12 vag ring VAGINAL DIRECTED Patient Comments: INSERT ONE RING VAGINALLY AND LEAVE IN PLACE FOR 3 CONSECUTIVE WEEKS, THEN REMOVE FOR 1 WEEK. INSERT NEW RING 7 DAYS AFTER THE LAST WAS REMOVED spironolactone 25 mg tablet 25 mg PO DAILY Referrals Follow up/Referrals: Va Kasper APRN [Primary Care Provider] - See instructions Activity Restrictions/Add. Instructions Additional Instructions/Restrictions: Follow up with your OBGYN as discussed in the [facility] today Call the Mammagraphy Office and make appointment [phone] Follow up with your Family Doctor Make sure to follow up immediately if any redness, warmth or swelling in breast Straight to ER if any life threatening symptoms Clinical Impressions Clinical Impression: Breast pain Instructions Patient Instructions: DI for Breast Pain (Mastalgia), Mastalgia, Mastalgia: Benign Breast Pain Print Language Print Language: Maltese Discharge ED Provider: Mireya Chambers [facility] HPI General Stated complaint: R breast pain Mode of Arrival: Ambulatory Source of Information: Patient Time Seen by Provider: 07/01/24 13:14 Description of Symptoms (Recalled from Triage Doc. by RN): PAIN IN RIGHT UPPER BREAST THAT IS INTERMITTENT, STATES SHE CAN NOT FEEL ANY LUMPS, WILL RANDOMLY LACTATE D/T PCOS, AND STARTED ON TESTOSTERONE CREME 3 WEEKS AGO HEENT Symptoms (Recalled from RN notes): No Resp Symptoms (Recalled from RN notes): No Skin Symptoms (Recalled from RN notes): Yes MS Symptoms (Recalled from RN notes): No Functional Status (Recalled from RN notes): WNL History of Present Illness Provider Complaint: Patient states that has been having soreness and tenderness in her right breast for about 3 days States that she hasnt noticed any redness, swelling or lumps or bumps just tender in that area when something touches it States that she did recently start testostorone not sure if that may be causing it or not States that she has not had any drainage from her nipple area however sometimes she will have it but not often Denies fever, chills, body aches Related Data Home Medications ?Medication ?Instructions ?Recorded ?Confirmed spironolactone 25 mg tablet 25 mg PO DAILY 06/20/24 07/01/24 etonogestrel 0.12 mg-ethinyl 0.12 vag ring vaginal DIRECTED 07/01/24 07/01/24 estradiol 0.015 mg/24 hr vaginal ring (EluRyng) tretinoin 0.025 % topical cream 0.025 applic topical DIRECTED 07/01/24 07/01/24 (Retin-A) Allergies Allergy/AdvReac Type Severity Reaction Status Date / Time Sulfa (Sulfonamide Allergy Hives Verified 06/09/24 09:54 Antibiotics) Worker's Comp Is this a Worker's Comp case?: No [facility] Disclaimer: The information contained in this section may have been updated after the patient was seen, as this information can be updated by other users. Medical History Cystic breast PCOS (polycystic ovarian syndrome) Hypoglycemia Near syncope Hyperlipidemia Depression Anxiety Urinary tract infection Migraine Asthma Surgical History History of tonsillectomy Family History Grandmother Anemia Cancer Family/Other Cancer Father No problems noted. Grandfather Coronary artery disease Heart attack Mother Thyroid disorder Social History Smoking Status: Current every day smoker tobacco type: e-cigarettes alcohol intake: current alcohol intake frequency: holidays/special occasions only counseling provided: provider counseling substance use type: denies use current occupational status: employed housing: house ROS Obtained: Yes All systems reviewed & no additional complaints except as documented and Yes Systems reviewed as appropriate & no additional complaints except as documented Constitutional Constitutional: Reports system reviewed and no additional complaints, except as documented and Reports as per HPI ENT Ears, Nose, Mouth, and Throat: Reports system reviewed and no additional complaints, except as documented and Reports as per HPI Cardiovascular Cardiovascular: Reports system reviewed and no additional complaints, except as documented and Reports as per HPI Respiratory Respiratory: Reports system reviewed and no additional complaints, except as documented and Reports as per HPI Gastrointestinal Gastrointestingal: Reports system reviewed and no additional complaints, except as documented and as per HPI Musculoskeletal Musculoskeletal: Reports system reviewed and no additional complaints, except as documented and Reports as per HPI Integumentary/Breasts Skin/Breast: Reports system reviewed and no additional complaints, except as documented and Reports as per HPI Comments: tenderness in right breast for 3 days in one area, no swelling no redness, drainage from nipple Physical Exam General General appearance: alert and in no apparent distress Eye Eye exam: Present normal appearance, PERRL and EOMI ENT ENT exam: Present normal exam, normal oropharynx, mucous membranes moist and TM's normal bilaterally Expanded Chest Exam Breast: right: tenderness Female Torso: 2 1. Patient reports tenderness with palpation, no redness, no swelling no warmth no lumps or bumps noted with exam no drainage from nipple noted Respiratory Respiratory exam: Present normal lung sounds bilaterally; Absent respiratory distress or wheezes Cardiovascular Cardiovascular exam: Present regular rate, normal rhythm and normal heart sounds Neurological Exam Neurological exam: Present alert, oriented X3 and normal gait Medical Decision Making Medical Records Screening: Per USPSTF and CDC recommendations, given the prevalence of disease in our region, it is our hospital?s policy to screen for HIV and viral Hepatitis for all patients aged 18 and over and those with ongoing risk factors. Primo Inquiry Pt receiving controlled substance: No Primo was queried for this patient: No Vital Signs: 07/01/24 12:56 Temperature 98.7 F Temperature Source Oral Pulse Rate [Left Radial] 78 Respiratory Rate 18 Blood Pressure [Left Arm] 122/70 Blood Pressure Mean [Left Arm] 87 02 Sat by Pulse Oximetry 100 Medical Decision Narrative: Called spoke with OBGYN office and spoke with them about patient and they advised to have patient call the Mammography Dept and make appointment at [phone] and then they will see her in the office for furhter work up and evaluation and testing
[2024-07-01 13:34] VITALS: BP 122/70; PULSE 78; RESP 18; TEMP 37.1
== END 2024-07-01 13:35 | disposition home or self-care (01) ==
LOC: UTC 12:49
PROVIDERS: Emergency Provider Nurse Practitioner; PCP Nurse Practitioner Family
DX: N64.4 Mastodynia (principal)
CPT/HCPCS: 99213; G0381

== ENCOUNTER 2024-09-05 16:59 | Emergency (ER) | payer MEDICAID, SELFPAY ==
--- NOTE | 2024-09-05 17:54 | EXP.UTC ---
Discharge Plan Disposition Patient Disposition: Home, Self-Care Condition: Good Prescriptions Prescriptions: New ciprofloxacin HCl 0.3 % drops See Rx Instructions .ROUTE .COMPLEX Qty: 5 0RF Rx Instructions: put 1 drp in right eye every 2hr x2days; then 4 times/day x5days azithromycin [Zithromax] 250 mg tablet 250 mg PO UD DOSE PK Qty: 6 0RF Rx Instructions: Take two (2) tablets today, then one (1) tablet days #2 thru #5 [id number] [Bromfed DM] 2-30-10 mg/5 mL Syrup 5 ml PO Q6H PRN (Reason: Cough) Qty: 240 0RF No Action etonogestrel-ethinyl estradiol [EluRyng] 0.12-0.015 mg/24 hr ring 0.12 vag ring VAGINAL DIRECTED Patient Comments: INSERT ONE RING VAGINALLY AND LEAVE IN PLACE FOR 3 CONSECUTIVE WEEKS, THEN REMOVE FOR 1 WEEK. INSERT NEW RING 7 DAYS AFTER THE LAST WAS REMOVED amitriptyline 10 mg tablet 10 - 20 mg PO HS Patient Comments: TAKE 1 TO 2 TABLETS BY MOUTH ONCE DAILY AT BEDTIME Referrals Follow up/Referrals: Va Kasper APRN [Primary Care Provider] - See instructions Activity Restrictions/Add. Instructions Additional Instructions/Restrictions: Use the eye drops as directed. Strict hand washing in the house hold, because conjunctivitis is very contagious. Follow up with your regular doctor. GO TO THE ER FOR ANY WORSENING SYMPTOMS OR CONCERNS Clinical Impressions Clinical Impression: Sinusitis, Conjunctivitis of right eye Instructions Patient Instructions: How to Put in Eye Drops, DI for Sinusitis, DI for Conjunctivitis Print Language Print Language: Syriac Discharge ED Provider: Lyndon Arias [facility] HPI General Stated complaint: Right eye itchy,crusty Time Seen by Provider: 09/05/24 17:51 Related Data Home Medications ?Medication ?Instructions ?Recorded ?Confirmed etonogestrel 0.12 mg-ethinyl 0.12 vag ring vaginal DIRECTED 07/01/24 09/05/24 estradiol 0.015 mg/24 hr vaginal ring (EluRyng) amitriptyline 10 mg tablet 10 - 20 mg PO HS 09/05/24 09/05/24 Previous Rx's ?Medication ?Instructions ?Recorded azithromycin 250 mg tablet 250 mg PO UD DOSE PK #6 tabs 09/05/24 (Zithromax) [id number] 5 ml PO Q6H PRN Cough #240 mL 09/05/24 2 mg-30 mg-10 mg/5 mL oral syrup (Bromfed DM) ciprofloxacin HCl 0.3 % eye drops See Rx Instructions ophthalmic 09/05/24 (eye) .COMPLEX #5 mL Allergies Allergy/AdvReac Type Severity Reaction Status Date / Time Sulfa (Sulfonamide Allergy Hives Verified 06/09/24 09:54 Antibiotics) [facility] Disclaimer: The information contained in this section may have been updated after the patient was seen, as this information can be updated by other users. Medical History Cystic breast PCOS (polycystic ovarian syndrome) Hypoglycemia Near syncope Hyperlipidemia Depression Anxiety Urinary tract infection Migraine Asthma Surgical History History of tonsillectomy Family History Grandmother Anemia Cancer Family/Other Cancer Father No problems noted. Grandfather Coronary artery disease Heart attack Mother Thyroid disorder Social History Smoking Status: Current every day smoker tobacco type: e-cigarettes alcohol intake: current alcohol intake frequency: holidays/special occasions only counseling provided: provider counseling substance use type: denies use current occupational status: employed Travel in the last 8 weeks: None housing: house Have you lived/traveled outside [place] in past 30 days?: No Contact w/someone who lives/traveled outside [place] past 30 days?: No Exposure to someone with infectious disease in past 14 days?: No Do you have a fever (greater than 100.4 F or 38 C)?: No Have you tested positive for COVID-19: No Exposed to someone with COVID-19 in past 14 days?: No Do you have a sore throat?: No Do you have a cough?: No Do you have any weakness?: No Do you have any diarrhea?: No Are you experiencing any unusual bleeding?: No Do you have any muscle aches/pain?: No Do you have any abdominal pain?: No Are you experiencing loss of taste or smell?: No ROS Obtained: Yes All systems reviewed & no additional complaints except as documented Constitutional Constitutional: Reports poor appetite Eyes Eyes: Denies blurry vision, Denies change in vision and Reports eye discharge ENT Ears, Nose, Mouth, and Throat: Reports as per HPI Cardiovascular Cardiovascular: Reports system reviewed and no additional complaints, except as documented and Denies chest pain Respiratory Respiratory: Denies shortness of breath, Denies chest congestion, Reports cough, Denies stridor and Denies wheezing Gastrointestinal Gastrointestingal: Reports system reviewed and no additional complaints, except as documented; Denies abdominal pain, diarrhea or vomiting Musculoskeletal Musculoskeletal: Reports system reviewed and no additional complaints, except as documented and Denies arthralgias Integumentary/Breasts Skin/Breast: Reports system reviewed and no additional complaints, except as documented and Denies rash Neurologic Neurologic: Denies paresthesias Allergic/Immunologic Allergic/Immunologic: Denies wheezing Physical Exam General General appearance: alert and in no apparent distress Head Head exam: atraumatic, normocephalic and normal inspection Eye Eye exam: Present PERRL, EOMI, conjunctival redness, conjunctival injection and discharge Expanded Eye Exam Eyelids: left: normal inspection and right: erythema Pupils: Left: size (2), Right: size (2) and Bilateral: regular, round and reactive Sclera/Conjunctival: left: normal inspection and right: injection and exudate ENT ENT exam: Present normal exam, normal oropharynx, mucous membranes moist, TM's normal bilaterally and normal external ear exam Neck Neck exam: Present normal inspection, full ROM and trachea midline; Absent meningismus or lymphadenopathy Chest Chest inspection: Present normal inspection and symmetric chest wall rise; Absent tenderness Respiratory Respiratory exam: Present normal lung sounds bilaterally; Absent respiratory distress Cardiovascular Cardiovascular exam: Present regular rate and normal rhythm; Absent JVD Abdominal Exam Abdominal exam: Present soft and normal bowel sounds; Absent distention, tenderness or guarding Extremities Exam Extremities exam: Present normal inspection, full ROM and normal capillary refill; Absent calf tenderness Back Exam Back exam: Present normal inspection; Absent tenderness Neurological Exam Neurological exam: Present alert and oriented X3 Psychiatric Psychiatric exam: Present normal affect and normal mood Skin Skin exam: Present warm, dry, intact and normal color Lymphatic Lymphatic Findings: no adenopathy Medical Decision Making Medical Records Screening: Per USPSTF and CDC recommendations, given the prevalence of disease in our region, it is our hospital?s policy to screen for HIV and viral Hepatitis for all patients aged 18 and over and those with ongoing risk factors. Primo Inquiry Pt receiving controlled substance: No
[2024-09-05 17:55] VITALS: BP 101/76; PULSE 89; RESP 17; TEMP 36.8; O2SAT 95
[2024-09-05 18:35] VITALS: BP 101/76; PULSE 89; RESP 17; TEMP 36.8; O2SAT 95
== END 2024-09-05 18:38 | disposition home or self-care (01) ==
PROVIDERS: Emergency Provider Nurse Practitioner Family; PCP Nurse Practitioner Family
DX: H10.31 Unspecified acute conjunctivitis, right eye (principal); J01.90 Acute sinusitis, unspecified
CPT/HCPCS: 99213; G0381

== ENCOUNTER 2024-09-11 08:00 | Emergency (ER) | payer MEDICAID, SELFPAY ==
[2024-09-11 08:25] VITALS: BP 114/73; PULSE 96; RESP 19; TEMP 38.2; O2SAT 98; BMI 20.2
--- NOTE | 2024-09-11 08:27 | ED_ITS ---
Discharge Plan Disposition Patient Disposition: Home, Self-Care Condition: Good Prescriptions Prescriptions: No Action etonogestrel-ethinyl estradiol [EluRyng] 0.12-0.015 mg/24 hr ring 0.12 vag ring VAGINAL DIRECTED Patient Comments: INSERT ONE RING VAGINALLY AND LEAVE IN PLACE FOR 3 CONSECUTIVE WEEKS, THEN REMOVE FOR 1 WEEK. INSERT NEW RING 7 DAYS AFTER THE LAST WAS REMOVED amitriptyline 10 mg tablet 10 - 20 mg PO HS Patient Comments: TAKE 1 TO 2 TABLETS BY MOUTH ONCE DAILY AT BEDTIME ciprofloxacin HCl 0.3 % drops See Rx Instructions .ROUTE .COMPLEX Qty: 5 0RF Rx Instructions: put 1 drp in right eye every 2hr x2days; then 4 times/day x5days azithromycin [Zithromax] 250 mg tablet 250 mg PO UD DOSE PK Qty: 6 0RF Rx Instructions: Take two (2) tablets today, then one (1) tablet days #2 thru #5 [id number] [Bromfed DM] 2-30-10 mg/5 mL Syrup 5 ml PO Q6H PRN (Reason: Cough) Qty: 240 0RF Referrals Follow up/Referrals: Va Kasper APRN [Primary Care Provider] - See instructions Activity Restrictions/Add. Instructions Additional Instructions/Restrictions: * Too late to start Tamiflu. Most effective when started within 48 hours of symptoms onset * Lots of rest * Increase Fluids water, Gatorade, powerade, pedialyte,if infant/toddler/child * Alternate Tylenol and / or ibuprofen as discussed for fever, aches, chills Follow up IMMEDIATELY with your family doctor for new or worsening Symptoms OR no noticeable improvement over the next 48-72 hours, 911 for difficulty or breathing * You or your child area contagious until no fever, aches, chills for 24 hours with medication for symptoms * Help Prevent the spread of influenza: * ?Wash your hands often. Use soap and water. Wash your hands after you use the bathroom, change a child's diapers, or sneeze. Wash your hands before you prepare or eat food. Use gel hand cleanser that has 60% alcohol, when soap and water are not available. Do not touch your eyes, nose, or mouth unless you have washed your hands first. * Cover your mouth when you sneeze or cough. Cough into a tissue or the bend of your arm. If you use a tissue, throw it away immediately and wash your hands. * Clean shared items with a germ-killing kettle cleaner. Clean table surfaces, doorknobs, and light switches. Do not share towels, silverware, and dishes with people who are sick. Wash bed sheets, towels, silverware, and dishes with soap and water. * Wear a mask over your mouth and nose if you are sick. The face mask may help protect others from becoming infected with the flu. Wear the mask when in common areas of your home or if you seek care with a healthcare provider. * Stay away from others if you are sick. Stay at home until 24 hours after your fever and symptoms are gone. Clinical Impressions Clinical Impression: Influenza Instructions Patient Instructions: DI for Influenza -- Adult, Influenza Print Language Print Language: Tamazight Discharge ED Provider: Mireya Chambers [facility] HPI General Stated complaint: chills, fever, body aches Mode of Arrival: Ambulatory Source of Information: Patient Limitations: No Limitations Time Seen by Provider: 09/11/24 08:28 Description of Symptoms (Recalled from Triage Doc. by RN): FEVER, CHILLS, BODY ACHES, COUGH HEENT Symptoms (Recalled from RN notes): No Resp Symptoms (Recalled from RN notes): Yes Skin Symptoms (Recalled from RN notes): No MS Symptoms (Recalled from RN notes): No Functional Status (Recalled from RN notes): NA History of Present Illness Provider Complaint: Patient states that she thinks she may have the flu States that she started feeling bad on Sunday with chills and body aches, and started having fever yesterday and symptoms continued to get worse last night and today she wasnt feeling any better so she came in to get checked Related Data Allergies Allergy/AdvReac Type Severity Reaction Status Date / Time Sulfa (Sulfonamide Allergy Hives Verified 06/09/24 09:54 Antibiotics) Worker's Comp Is this a Worker's Comp case?: No [facility] Disclaimer: The information contained in this section may have been updated after the patient was seen, as this information can be updated by other users. Medical History Cystic breast PCOS (polycystic ovarian syndrome) Hypoglycemia Near syncope Hyperlipidemia Depression Anxiety Urinary tract infection Migraine Asthma Surgical History History of tonsillectomy Family History Grandmother Anemia Cancer Family/Other Cancer Father No problems noted. Grandfather Coronary artery disease Heart attack Mother Thyroid disorder Social History Smoking Status: Current every day smoker tobacco type: e-cigarettes alcohol intake: current alcohol intake frequency: holidays/special occasions only counseling provided: provider counseling substance use type: denies use current occupational status: employed Travel in the last 8 weeks: None housing: house Have you lived/traveled outside [place] in past 30 days?: No Contact w/someone who lives/traveled outside US past 30 days?: No Exposure to someone with infectious disease in past 14 days?: Yes Do you have a fever (greater than 100.4 F or 38 C)?: Yes Have you tested positive for COVID-19: No Exposed to someone with COVID-19 in past 14 days?: No Do you have a sore throat?: No Do you have a cough?: No Do you have any weakness?: No Do you have any diarrhea?: No Are you experiencing any unusual bleeding?: No Do you have any muscle aches/pain?: Yes Do you have any abdominal pain?: No Are you experiencing loss of taste or smell?: No ROS Obtained: Yes All systems reviewed & no additional complaints except as documented and Yes Systems reviewed as appropriate & no additional complaints except as documented Constitutional Constitutional: Reports system reviewed and no additional complaints, except as documented, Reports as per HPI, Reports body ache, Reports chills, Reports fever(s) and Reports headache(s) ENT Ears, Nose, Mouth, and Throat: Reports system reviewed and no additional c omplaints, except as documented, Reports as per HPI, Reports headache(s), Reports nasal congestion and Reports nasal discharge Cardiovascular Cardiovascular: Reports system reviewed and no additional complaints, except as documented and Reports as per HPI Respiratory Respiratory: Reports system reviewed and no additional complaints, except as documented and Reports as per HPI Gastrointestinal Gastrointestingal: Reports system reviewed and no additional complaints, except as documented and as per HPI Neurologic Neurologic: Reports headache(s) Physical Exam General General appearance: alert and in no apparent distress ENT ENT exam: Present mucous membranes moist and TM's normal bilaterally Expanded ENT Exam Nose exam: Absent sinus tenderness Throat exam: Present other (Mild pharyngeal erythema noted) Respiratory Respiratory exam: Present normal lung sounds bilaterally; Absent respiratory distress or wheezes Cardiovascular Cardiovascular exam: Present regular rate, normal rhythm and normal heart sounds Abdominal Exam Abdominal exam: Present soft and normal bowel sounds; Absent distention or tenderness Neurological Exam Neurological exam: Present alert, oriented X3 and normal gait Medical Decision Making Medical Records Screening: Per USPSTF and CDC recommendations, given the prevalence of disease in our [facility], it is our hospital?s policy to screen for HIV and viral Hepatitis for all patients aged 18 and over and those with ongoing risk factors. Primo Inquiry Pt receiving controlled substance: No Primo was queried for this patient: No Vital Signs: 09/11/24 08:25 Temperature 100.7 F H Temperature Source Oral Pulse Rate [Left Radial] 96 H Respiratory Rate 19 Blood Pressure [Right Arm] 114/73 Blood Pressure Mean [Right Arm] 86 Blood Pressure Source [Right Arm] Automatic Cuff Blood Pressure Position [Right Arm] Supine 02 Sat by Pulse Oximetry 98 Oxygen Delivery Method Room Air Lab Data Lab results reviewed: Yes I reviewed the patient's lab results. Medical Decision Narrative: Discussed Tamiflu patient did not want to take it
[2024-09-11 08:47] LABS: UTC Influenza A Antigen Positive (Negative); UTC Influenza B Antigen Negative (Negative)
[2024-09-11 08:49] VITALS: BP 114/73; PULSE 96; RESP 19; TEMP 38.2
== END 2024-09-11 08:50 | disposition home or self-care (01) ==
PROVIDERS: Nurse Practitioner Family; Emergency Provider Nurse Practitioner; PCP Nurse Practitioner Family
DX: J11.1 Influenza due to unidentified influenza virus with other respiratory manifestations (principal)
CPT/HCPCS: 87804; 99213; G0381

== ENCOUNTER 2024-09-14 15:00 | Emergency (ER) | payer MEDICAID, SELFPAY ==
--- NOTE | 2024-09-14 16:01 | ED_ITS ---
Discharge Plan Disposition Patient Disposition: Home, Self-Care Condition: Good Prescriptions Prescriptions: New albuterol sulfate [Ventolin HFA] 90 mcg/actuation HFA aerosol inhaler 2 puff inhalation Q6H PRN (Reason: shortness of breath or wheezing) Qty: 6.7 5RF albuterol sulfate 2.5 mg /3 mL (0.083 %) solution for nebulization 2.5 mg inhalation Q6H PRN (Reason: shortness of breath or wheezing) Qty: 90 5RF azithromycin [Zithromax] 250 mg tablet 250 mg PO UD DOSE PK Qty: 6 0RF Rx Instructions: Take two (2) tablets today, then one (1) tablet days #2 thru #5 methylprednisolone 4 mg Tablets,Dose Pack 4 mg PO DIRECTED 6 Days Qty: 21 0RF Rx Instructions: Take 1 pack as directed for 6 days bseczczakamqswu-uyijssncu-[id number] [Bromfed DM] 2-30-10 mg/5 mL Syrup 5 ml PO Q6H PRN (Reason: Cough) Qty: 240 0RF Referrals Follow up/Referrals: Va Kasper APRN [Primary Care Provider] - See instructions Activity Restrictions/Add. Instructions Additional Instructions/Restrictions: Drink plenty of fluids. Take tylenol or ibuprofen for pain or fever. Take the medications as directed. Follow up with your regular doctor. GO TO THE ER FOR ANY WORSENING SYMPTOMS Clinical Impressions Clinical Impression: Influenza A, Asthma exacerbation Stand Alone Forms Stand Alone Forms: Work/School Release Instructions Patient Instructions: DI for Asthma -- Adult Print Language Print Language: Kyrgyz Discharge ED Provider: Lyndon Arias [facility] HPI General Stated complaint: cough, fever, body aches Time Seen by Provider: 09/14/24 16:01 Related Data Previous Rx's ?Medication ?Instructions ?Recorded albuterol sulfate 2.5 mg/3 mL 2.5 mg (3 mL) inhalation Q6H PRN 09/14/24 (0.083 %) solution for nebulization shortness of breath or wheezing #90 mL albuterol sulfate 90 mcg/actuation 2 puff inhalation Q6H PRN 09/14/24 aerosol inhaler (Ventolin HFA) shortness of breath or wheezing #6.7 grams azithromycin 250 mg tablet 250 mg PO UD DOSE PK #6 tabs 09/14/24 (Zithromax) ygxgojnyadxruiy-jtscesdqdzwzfiy-LL 5 ml PO Q6H PRN Cough #240 mL 09/14/24 2 mg-30 mg-10 mg/5 mL oral syrup (Bromfed DM) methylprednisolone 4 mg tablets in 4 mg PO DIRECTED 6 days #21 tabs 09/14/24 a dose pack Allergies Allergy/AdvReac Type Severity Reaction Status Date / Time Sulfa (Sulfonamide Allergy Hives Verified 06/09/24 09:54 Antibiotics) [facility] Disclaimer: The information contained in this section may have been updated after the patient was seen, as this information can be updated by other users. Medical History Cystic breast PCOS (polycystic ovarian syndrome) Hypoglycemia Near syncope Hyperlipidemia Depression Anxiety Urinary tract infection Migraine Asthma Surgical History History of tonsillectomy Family History Grandmother Anemia Cancer Family/Other Cancer Father No problems noted. Grandfather Coronary artery disease Heart attack Mother Thyroid disorder Social History Smoking Status: Current every day smoker tobacco type: e-cigarettes alcohol intake: current alcohol intake frequency: holidays/special occasions only counseling provided: provider counseling substance use type: denies use current occupational status: employed Travel in the last 8 weeks: None housing: house Have you lived/traveled outside [place] in past 30 days?: No Contact w/someone who lives/traveled outside US past 30 days?: No Exposure to someone with infectious disease in past 14 days?: No Do you have a fever (greater than 100.4 F or 38 C)?: Yes Have you tested positive for COVID-19: No Exposed to someone with COVID-19 in past 14 days?: No Do you have a sore throat?: No Do you have a cough?: Yes Do you have any weakness?: No Do you have any diarrhea?: No Are you experiencing any unusual bleeding?: No Do you have any muscle aches/pain?: Yes Do you have any abdominal pain?: No Are you experiencing loss of taste or smell?: No ROS Obtained: Yes All systems reviewed & no additional complaints except as documented Constitutional Constitutional: Reports chills and Reports fever(s) Eyes Eyes: Denies eye discharge ENT Ears, Nose, Mouth, and Throat: Reports as per HPI Cardiovascular Cardiovascular: Denies chest pain Respiratory Respiratory: Denies chest congestion and Reports cough Gastrointestinal Gastrointestingal: Reports nausea; Denies abdominal pain, constipation, cramping, diarrhea or vomiting Musculoskeletal Musculoskeletal: Denies arthralgias Integumentary/Breasts Skin/Breast: Denies rash Neurologic Neurologic: Denies paresthesias Physical Exam General General appearance: alert and in no apparent distress Head Head exam: atraumatic, normocephalic and normal inspection Eye Eye exam: Present normal appearance, PERRL and EOMI ENT ENT exam: Present mucous membranes moist and normal external ear exam Expanded ENT Exam TM/Canal exam: Bilateral TM: erythema and bulging Nose exam: Absent sinus tenderness Mouth exam: Present normal external inspection; Absent drooling Teeth exam: Present normal inspection Throat exam: Present tonsillar erythema, tonsillomegaly and tonsillar exudate Neck Neck exam: Present normal inspection, full ROM and trachea midline; Absent tenderness, meningismus or lymphadenopathy Chest Chest inspection: Present normal inspection and symmetric chest wall rise; Absent tenderness Respiratory Respiratory exam: Present normal lung sounds bilaterally; Absent respiratory distress, wheezes or stridor Cardiovascular Cardiovascular exam: Present regular rate and normal rhythm; Absent systolic murmur or diastolic murmur Abdominal Exam Abdominal exam: Present soft and normal bowel sounds; Absent distention, tenderness, guarding, rebound or rigidity Extremities Exam Extremities exam: Present normal inspection and normal capillary refill; Absent calf tenderness Back Exam Back exam: Present normal inspection and full ROM; Absent tenderness, CVA tenderness (R) or CVA tenderness (L) Neurological Exam Neurological exam: Present alert, oriented X3 and CN II-XII intact Psychiatric Psychiatric exam: Present normal affect and normal mood Skin Skin exam: Present warm, dry, intact and normal color Medical Decision Making Medical Records Medical records reviewed: No I reviewed the patient's medical records. Screening: Per USPSTF and CDC recommendations, given the prevalence of disease in our region, it is our hospital?s policy to screen for HIV and viral Hepatitis for all patients aged 18 and over and those with ongoing risk factors. Primo Inquiry Pt receiving controlled substance: No Lab Data Lab results reviewed: Yes I reviewed the patient's lab results.
[2024-09-14 16:06] VITALS: BP 107/68; PULSE 69; RESP 18; TEMP 37.2; O2SAT 98
[2024-09-14 16:55] VITALS: BP 107/68; PULSE 69; RESP 18; TEMP 37.2
== END 2024-09-14 16:57 | disposition home or self-care (01) ==
PROVIDERS: Emergency Provider Nurse Practitioner Family; PCP Nurse Practitioner Family
DX: J09.X2 Influenza due to identified novel influenza A virus with other respiratory manifestations (principal); J45.901 Unspecified asthma with (acute) exacerbation
CPT/HCPCS: 99212; G0381

== ENCOUNTER 2024-10-01 19:23 | Emergency (ER) | payer MEDICAID, SELFPAY ==
[2024-10-01 19:36] VITALS: BP 131/81; PULSE 96; RESP 16; O2SAT 100
--- NOTE | 2024-10-01 19:37 | ED_ITS ---
Discharge Plan Disposition Patient Disposition: Home, Self-Care Condition: Good Prescriptions Prescriptions: New methocarbamol 750 mg tablet 750 mg PO HS Qty: 30 0RF No Action etonogestrel-ethinyl estradiol [EluRyng] 0.12-0.015 mg/24 hr ring vaginal Patient Comments: INSERT ONE RING VAGINALLY AND LEAVE IN PLACE FOR 3 CONSECUTIVE WEEKS, THEN REMOVE FOR 1 WEEK. INSERT NEW RING 7 DAYS AFTER THE LAST WAS REMOVED ondansetron 4 mg tablet,disintegrating 4 mg PO Q8H PRN (Reason: nausea and vomiting) Qty: 10 0RF albuterol sulfate [Ventolin HFA] 90 mcg/actuation HFA aerosol inhaler 2 puff inhalation Q6H PRN (Reason: shortness of breath or wheezing) Qty: 6.7 5RF albuterol sulfate 2.5 mg /3 mL (0.083 %) solution for nebulization 2.5 mg inhalation Q6H PRN (Reason: shortness of breath or wheezing) Qty: 90 5RF Referrals Follow up/Referrals: Va Kasper APRN [Primary Care Provider] - See instructions Activity Restrictions/Add. Instructions Additional Instructions/Restrictions: Return to the emergency department for any worsening signs or symptoms, continue take all medications as prescribed. Follow-up with primary care provider for further advanced imaging and physical therapist for treatment, for which she will get a call for. Clinical Impressions Clinical Impression: Back pain, History of scoliosis, Numbness and tingling of left lower extremity Instructions Patient Instructions: DI for Low Back Pain, DI for Back Pain With Sciatica, DI for Numbness/Tingling Print Language Print Language: Guatemalan Discharge ED Provider: Nakul Barboza General Adult HPI <JACKSON Arellano - Last Filed: 10/01/24 20:39> General Chief complaint: PAIN Stated complaint: numbness in left leg and swelling Time Seen by Provider: 10/01/24 19:36 Mode of Arrival: Ambulatory Source of Information: Patient Limitations: No Limitations History of Present Illness HPI narrative: 8-year-old female presents to the emergency department with a 2-week history of left lower extremity pain, back pain and some intermittent numbness and tingli ng, she states that the pain is worse with ambulation, patient states that she was seen in the urgent care treatment facility today for some vomiting and diarrhea, recently was diagnosed with the flu 2 weeks ago but this is improved as far as her URI type symptomatology. She denies fever chills, chest pain, shortness of breath, denies any real abdominal pain, does admit to back pain, denies urinary type symptomatology, denies any joint irritation, vaginal discharge vaginal bleeding, has any upper or lower extremity weakness, denies urinary bladder or bowel dysfunction. Other past medical history consistent with asthma, prior history of spina bifida/scoliosis as a child, PCOS, she is a current everyday smoker (vapes), hyperlipidemia, denies any substance abuse. She has had previous history of sciatica/lumbar spine pathology. Initial triage vitals are unremarkable. Onset (ago): week(s) Related Data Home Medications ?Medication ?Instructions ?Recorded ?Confirmed etonogestrel 0.12 mg-ethinyl vag ring vaginal 10/01/24 10/01/24 estradiol 0.015 mg/24 hr vaginal ring (EluRyng) Previous Rx's ?Medication ?Instructions ?Recorded albuterol sulfate 2.5 mg/3 mL 2.5 mg (3 mL) inhalation Q6H PRN 09/14/24 (0.083 %) solution for nebulization shortness of breath or wheezing #90 mL albuterol sulfate 90 mcg/actuation 2 puff inhalation Q6H PRN 09/14/24 aerosol inhaler (Ventolin HFA) shortness of breath or wheezing #6.7 grams methocarbamol 750 mg tablet 750 mg PO HS #30 tabs 10/01/24 ondansetron 4 mg disintegrating 4 mg PO Q8H PRN nausea and 10/01/24 tablet vomiting #10 tabs Allergies Allergy/AdvReac Type Severity Reaction Status Date / Time Sulfa (Sulfonamide Allergy Hives Verified 10/01/24 18:35 Antibiotics) [facility] <JACKSON Arellano - Last Filed: 10/01/24 20:39> [facility] Disclaimer: The information contained in this section may have been updated after the patient was seen, as this information can be updated by other users. Medical History Cystic breast PCOS (polycystic ovarian syndrome) Hypoglycemia Near syncope Hyperlipidemia Depression Anxiety Urinary tract infection Migraine Asthma Surgical History History of tonsillectomy Family History Grandmother Anemia Cancer Family/Other Cancer Father No problems noted. Grandfather Coronary artery disease Heart attack Mother Thyroid disorder Social History Smoking Status: Current every day smoker tobacco type: e-cigarettes alcohol intake: current alcohol intake frequency: holidays/special occasions only counseling provided: provider counseling substance use type: denies use current occupational status: employed Travel in the last 8 weeks: None housing: house Have you lived/traveled outside [place] in past 30 days?: No Contact w/someone who lives/traveled outside US past 30 days?: No Exposure to someone with infectious disease in past 14 days?: No Do you have a fever (greater than 100.4 F or 38 C)?: No Have you tested positive for COVID-19: No Exposed to someone with COVID-19 in past 14 days?: No Do you have a sore throat?: No Do you have a cough?: No Do you have any weakness?: No Do you have any diarrhea?: No Are you experiencing any unusual bleeding?: No Do you have any muscle aches/pain?: No Do you have any abdominal pain?: No Are you experiencing loss of taste or smell?: No Other Medical History Have you received the Flu Vaccine for this season: No Have you received the Pneumonia Vaccine: No <JACKSON Arellano - Last Filed: 10/01/24 20:39> ROS Obtained: Yes All systems reviewed & no additional complaints except as documented Physical Exam <JACKSON Arellano - Last Filed: 10/01/24 20:39> General General appearance: alert and in no apparent distress Head Head exam: atraumatic and normocephalic Eye Eye exam: Present PERRL and EOMI ENT ENT exam: Present mucous membranes moist Neck Neck exam: Present normal inspection Chest Chest inspection: Present normal inspection and symmetric chest wall rise Respiratory Respiratory exam: Present normal lung sounds bilaterally; Absent respiratory distress Cardiovascular Cardiovascular exam: Present regular rate and normal rhythm Abdominal Exam Abdominal exam: Present soft; Absent tenderness Extremities Exam Extremities exam: Present normal inspection Back Exam Back exam: Present normal inspection, full ROM, paraspinal tenderness, straight leg raise (L) and other (Patient is scoliotic curvature of her spine some paraspinal tenderness is present over the left side of the patient's lumbar region, patient has 5 out of 5 strength in bilateral lower and upper extremities, no gross sensation deficit, positive straight leg test on the left); Absent CVA tenderness (R), CVA tenderness (L) or vertebral tenderness Neurological Exam Neurological exam: Present alert and oriented X3 Psychiatric Psychiatric exam: Present normal affect Skin Skin exam: Present warm and dry Medical Decision Making <JACKSON Arellano - Last Filed: 10/01/24 20:39> Medical Records Medical records reviewed: Yes I reviewed the patient's medical records. Screening: Per USPSTF and CDC recommendations, given the prevalence of disease in our region, it is our hospital?s policy to screen for HIV and viral Hepatitis for all patients aged 18 and over and those with ongoing risk factors. Primo Inquiry Pt receiving controlled substance: No Primo was queried for this patient: No Vital Signs: 10/01/24 19:36 10/01/24 19:38 10/01/24 20:00 Temperature 98.2 F Temperature Source Oral Pulse Rate 96 H 89 Pulse Rate [Right Brachial] 85 Respiratory Rate 16 16 Blood Pressure 131/81 113/74 Blood Pressure [Right Arm] 125/77 Blood Pressure Mean [Right Arm] 93 Blood Pressure Source Automatic Cuff Blood Pressure Source [Right Arm] Automatic Cuff Blood Pressure Position Sitting Blood Pressure Position [Right Arm] Sitting 02 Sat by Pulse Oximetry 100 100 100 Oxygen Delivery Method Room Air Room Air Orders (Tests/Meds): ED MEDICATIONS Discontinued Medications Generic Name Dose Route Start Last Admin Trade Name Freeman PRN Reason Stop Dose Admin Acetaminophen 500 mg 10/01/24 19:52 10/01/24 19:57 Acetaminophen 500mg Tab PO 10/01/24 19:53 500 mg ONCE ONE Administration Ketorolac Tromethamine 15 mg 10/01/24 19:52 10/01/24 19:57 Ketorolac 30mg/Ml Vial IM 10/01/24 19:53 15 mg ONCE ONE Administration Lidocaine 1 each 10/01/24 19:53 10/01/24 19:58 Lidocaine 5% Transdermal Patch TP 10/01/24 19:54 1 each ONCE ONE Administration Methocarbamol 750 mg 10/01/24 19:52 10/01/24 19:57 Methocarbamol 500mg Tablet PO 10/01/24 19:53 750 mg ONCE ONE Administration Medical Decision Narrative: 28-year-old female presents to the emergency department with lower lumbar spine pain intermittent what sounds like radicular pain and numbness and tinglin g/paresthesias, differential diagnose include but not limited to generative disc disease of the lumbar spine, foraminal stenosis, acute lumbar sacral strain, acute sciatica. I discussed patient case with attending physician Offered laboratory studies and imaging workup to the patient, she denied at this time would like to pursue symptomatic relief from her pain, I think this is appropriate, patient has positive straight leg test, and history of scoliosis and prior lumbar degenerative changes, consistent with foraminal stenosis/acute sciatica, patient has no red flag signs or symptoms or neurological compromise concerning for cauda equina syndrome at this time, she was swabbed at urgent care for viral type symptomatology she is pending the results of this. Will treat the patient with methocarbamol 750 mg p.o., 1 Lidoderm patch, 15 mg IM Toradol, 5 mg Tylenol for pain. Reassessment of the patient at approximately 8:25 PM, patient states her symptomatology is somewhat improved, no current numbness tingling or paresthesia at this time, think this is more of a sciatica/lumbar pathology recommend follow-up with PCP and potentially obtaining MRI if needed, will place referral for physical therapy, recommend [id number] medications for symptomatic relief, I will prescribe short dose of methocarbamol 750 mg p.o. as needed, patient voiced understanding of the current treatment plan/discharge plan. Return precautions given. <Nakul Barboza MD - Last Filed: 10/01/24 20:41> Vital Signs: 10/01/24 19:36 10/01/24 19:38 10/01/24 20:00 Temperature 98.2 F Temperature Source Oral Pulse Rate 96 H 89 Pulse Rate [Right Brachial] 85 Respiratory Rate 16 16 Blood Pressure 131/81 113/74 Blood Pressure [Right Arm] 125/77 Blood Pressure Mean [Right Arm] 93 Blood Pressure Source Automatic Cuff Blood Pressure Source [Right Arm] Automatic Cuff Blood Pressure Position Sitting Blood Pressure Position [Right Arm] Sitting 02 Sat by Pulse Oximetry 100 100 100 Oxygen Delivery Method Room Air Room Air Orders (Tests/Meds): ED MEDICATIONS Discontinued Medications Generic Name Dose Route Start Last Admin Trade Name Freeman PRN Reason Stop Dose Admin Acetaminophen 500 mg 10/01/24 19:52 10/01/24 19:57 Acetaminophen 500mg Tab PO 10/01/24 19:53 500 mg ONCE ONE Administration Ketorolac Tromethamine 15 mg 10/01/24 19:52 10/01/24 19:57 Ketorolac 30mg/Ml Vial IM 10/01/24 19:53 15 mg ONCE ONE Administration Lidocaine 1 each 10/01/24 19:53 10/01/24 19:58 Lidocaine 5% Transdermal Patch TP 10/01/24 19:54 1 each ONCE ONE Administration Methocarbamol 750 mg 10/01/24 19:52 10/01/24 19:57 Methocarbamol 500mg Tablet PO 10/01/24 19:53 750 mg ONCE ONE Administration Medical Decision Narrative: 28-year-old female presents to the emergency department with lower lumbar spine pain intermittent what sounds like radicular pain and numbness and tingling/paresthesias, differential diagnose include but not limited to generative disc disease of the lumbar spine, foraminal stenosis, acute lumbar sacral strain, acute sciatica. I discussed patient case with attending physician Offered laboratory studies and imaging workup to the patient, she denied at this time would like to pursue symptomatic relief from her pain, I think this is appropriate, patient has positive straight leg test, and history of scoliosis and prior lumbar degenerative changes, consistent with foraminal stenosis/acute sciatica, patient has no red flag signs or symptoms or neurological compromise concerning for cauda equina syndrome at this time, she was swabbed at urgent care for viral type symptomatology she is pending the results of this. Will chad at the patient with methocarbamol 750 mg p.o., 1 Lidoderm patch, 15 mg IM Toradol, 5 mg Tylenol for pain. Reassessment of the patient at approximately 8:25 PM, patient states her symptomatology is somewhat improved, no current numbness tingling or paresthesia at this time, think this is more of a sciatica/lumbar pathology recommend follow-up with PCP and potentially obtaining MRI if needed, will place referral for physical therapy, recommend [id number] medications for symptomatic relief, I will prescribe short dose of methocarbamol 750 mg p.o. as needed, patient voiced understanding of the current treatment plan/discharge plan. Return precautions given. I was consulted by the LISSET, and we discussed the complexity of the problems being addressed. I approved the treatment and management plan for this patient's care in the emergency department, thus performing a substantive portion of the medical decision making. Nakul Barboza MD Critical Care <JACKSON Arellano - Last Filed: 10/01/24 20:39> Critical Care Time Critical Care Time: No
[2024-10-01 19:38] VITALS: BP 125/77; PULSE 85; RESP 16; TEMP 36.8; O2SAT 100
[2024-10-01] MEDS: ACETAMINOPHEN 500MG TAB 500 MG PO (19:57)
[2024-10-01] MEDS: KETOROLAC 30MG/ML VIAL 15 MG IM (19:57)
[2024-10-01] MEDS: METHOCARBAMOL 500MG TABLET 750 MG PO (19:57)
[2024-10-01] MEDS: LIDOCAINE 5% TRANSDERMAL PATCH 1 EACH TP (19:58)
[2024-10-01 20:00] VITALS: BP 113/74; PULSE 89; O2SAT 100
[2024-10-01 20:30] VITALS: BP 108/73; PULSE 84; O2SAT 100
[2024-10-01 20:42] VITALS: BP 108/73; PULSE 79; RESP 16; TEMP 36.8; O2SAT 99
--- NOTE | 2024-10-01 20:45 | PC.NURSE ---
referral to physical therapy faxed.
--- NOTE | 2024-10-01 20:45 | PC.NURSE ---
Pt awake alert and oriented at time of discharge Skin pink warm and dry Resp full and easy Gait steady Speech clear and appropriate
[2024-10-01 21:35] LABS: Adenovirus,PCR Not Detected (NotDetected); Bordetella Pertussis Not Detected (NotDetected); Chlamydophila Pneumoniae, PCR Not Detected (NotDetected); Coronavirus 19, PCR Not Detected (NotDetected); Coronavirus 229E Not Detected (NotDetected); Coronavirus NL63 Not Detected (NotDetected); Coronavirus OC43 Not Detected (NotDetected); Coronovirus HKU1,PCR Not Detected (NotDetected); Human Metapneumovirus Not Detected (NotDetected); Influenza A, PCR Not Detected (NotDetected); Influenza AH1, 2009 Not Detected (NotDetected); Influenza AH1, PCR Not Detected (NotDetected); Influenza AH3,PCR Not Detected (NotDetected); Influenza B, PCR Not Detected (NotDetected); Mycoplasma Pneumoniae, PCR Not Detected (NotDetected); Parainfluenza 1, PCR Not Detected (NotDetected); Parainfluenza 2, PCR Not Detected (NotDetected); Parainfluenza 3, PCR Not Detected (NotDetected); Parainfluenza 4, PCR Not Detected (NotDetected); Respiratory Syncytial Virus Not Detected (NotDetected); Rhinovirus/Enterovirus Not Detected (NotDetected)
== END 2024-10-01 20:46 | disposition home or self-care (01) ==
PROVIDERS: Student in an Organized Health Care Education/Training Program; Emergency Provider Emergency Medicine; PCP Nurse Practitioner Family
DX: M54.9 Dorsalgia, unspecified (principal)
CPT/HCPCS: 87633; 96372; 99283; J1885

== ENCOUNTER 2024-10-07 10:13 | Outpatient (CLI) | payer MEDICAID, SELFPAY ==
--- NOTE | 2024-10-07 10:22 | XR_ITS ---
FINAL REPORT TECHNIQUE: 5 views CLINICAL HISTORY: ACUTE LT-SIDE LBP FINDINGS: There is no fracture present. There is no malalignment. There are no significant degenerative changes. IMPRESSION: No acute process. Reviewed, Interpreted and Dictated by Robert Bui MD Transcribed by Jennifer Carter Authenticated and [facility]
== END 2024-10-07 23:59 | disposition home or self-care (01) ==
PROVIDERS: PCP Nurse Practitioner Family; Visit Provider Nurse Practitioner Family
DX: M54.42 Lumbago with sciatica, left side (principal)
CPT/HCPCS: 72110

== ENCOUNTER 2024-10-28 09:52 | Outpatient (RCR) | payer MEDICAID, SELFPAY ==
--- NOTE | 2024-10-28 11:28 | HMH.PTOPEV ---
PT Outpatient Evaluation Rehab PT Outpatient Evaluation Start: 10/28/24 09:58 Freq: Status: Active Protocol: Document 10/28/24 09:58 KARO (Rec: 10/28/24 11:27 KARO [id number]) E-signed By Leonora Wilson, PT Outpatient Therapy Subjective History Subjective History Pt is a 28 y/o female who reports chronic mid-low back pain for years with history of scoliosis. Pt reports new onset of intermittent LLE numbness/tingling from the left posterior hip to the lateral knee. Pt reports she recently noted the L knee swelling and states the L knee often pops loudly with discomfort and intermittently gives out on her. Pt denies b/ b dysfunction. Pt had a lumbar spine xray on 10/07/24 with impression of No acute process. Pt reports difficulty/pain with prolonged sitting, sleeping, bending/ lifting (ie her 3y/o kid), and descending stairs (1 flight at home). Pt reports she was prescribed a muscle relaxer but she did not take them because they make her sleepy. 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 Chief Complaint Pain,Paresthesia Symptom Type Ache,Dull,Numbness,Tingling Symptoms Relieved By Rest/Positioning,Heat Symptoms Aggravated By Sitting,Bending/Stooping, Physical Activity,Lifting Current Functional Limitations Lifting,Housework,Sleeping, Sitting,Recreation Activity, Stairs,Bending/Stooping Symptom Description Constant but Variable, Intermittent Level of pain today (0-10) 3 Pain scale - at its best (0-10) 3 Pain scale - at its worst (0-10) 7 Lumbopelvic Eval Palapation tenderness bilateral lumbar spinal tenderness Yes: L2-L5, S1 paraspinal tenderness Yes: L>R thoracolumbar PS buttock tenderness Yes: L piriformis, glute med/ min Lumbar/Sacral Palpation Findings Tenderness,Muscle Guarding Lumbar/Sacral Palpation Overall Comment 2-3/4 TTP Accessory Movement L-spine Vertebrae Accessory Movements Central P/A Jackson that Elicit Symptoms L2 bilateral L3 bilateral L4 bilateral L5 bilateral S1 bilateral Range of Motion Lumbar Spine Active Flexion Range of 85 Motion (degrees) Lumbar Spine Active Extension Range of 15 Motion (degrees) Left Lumbar Spine Lateral Flexion Active 15 Range of Motion (degrees) Right Lumbar Spine Lateral Flexion 20 Active Range of Motion (degrees) Manual Muscle Test Left Knee Extension Strength Grade 5 Normal Knee Flexion Strength Grade 5 Normal Hip Flexion Strength Grade 4 Good Hip Abduction Strength Grade 4 Good Hip Adduction Strength Grade 4 Good Hip Extension Strength Grade 4- Good- Ankle Dorsiflexion Strength Grade 5 Normal DTR Rt Patellar 2+ Lt Patellar 1+ Rt Gastroc/Soleus 2+ Lt Gastroc/Soleus 2+ Altered Sensation Left LE Dermatome Level L2,L5,S1 Comment decreased light touch sensation L compared to R Special Tests Hip Den (ONDINA) Test Negative Right,Positive Left Sciatic Nerve Tension Test Positive Left Unilateral Straight Leg Raise (Lasegue) Positive Left Test Oswestry Index Section 1 Pain Intensity The pain comes and goes and is moderate Section 2 Personal Care (Washing,Dresing) increase the pain, but I manage not to change my way of doing it Section 3 Lifting lifting heavy weights off the floor, but I can manage light to medium Section 4 Walking I cannot walk more than one mile wihtout increasing pain Section 5 Sitting Pain prevents me from sitting for more than one hour Section 6 Standing I cannot stand more than 1/2 hour without increasing pain Section 7 Sleeping Because of my pain, my normal night's sleep is less than 6 hours sleep Section 8 Social Life Pain has no significant effect on my social life apart from limiting Section 9 Traveling I get extra pain while traveling, but it does not compel me to seek al Section 10 Changing Degreee of Pain My pain is neither getting better or worse Score and Risk Level Oswestry Sc 24 Oswestry Risk Level Moderate Disability Outpatient Therapy Assessment Impairments Problems/Impairmments Palpation Tenderness,Impaired Range of Motion,Impaired Strength,Impaired Sitting, Impaired Driving,Impaired Lifting,Impaired Household Care,Impaired Stair Climbing, Impaired Bending,Subjective C/ O Pain,Impaired Self Care/Self Management Prognosis Rehab Potential Good Clinical Impression Consistent with Diagnosis Yes Short Term Goals Number of Weeks 3 Restore Ability to Lift Objects to Waist Yes: demonstrate proper Level lifting mechanics to prevent pain/reinjury Decrease Subjective C/O Pain Yes: Improve pain at worst to 5/10 to improve overall QOL Improve Self Care/Self Management Yes Patient to be Ind w/ HEP Yes Long-Term Goals Number of Weeks 6 Decreased Palpation Tenderness Yes: 1/ TTP of thoracolumbar PS, L2-L5, S1 SP, and L gluteal mm Increase Range of Motion Yes: Improve lumbar AROM to WNL Increase Strength Yes: Improve LLE MMT to 4+-5/5 grossly to assist with function Restore Ability to Lift Objects to Waist Yes: report ability to lift 3y Level /o child with pain 3/10 or less Improve Ability to Climb Stairs Yes: descend 1 flight without difficulty to assist w home navigation Improve Oswestry Score Yes: Improve score to 19 or less to improve overall QOL Decrease Subjective C/O Pain Yes: Improve pain at worst to 3/10 to improve overall QOL Outpatient Therapy Plan of Care Treatment Plan May Include Therapeutic Exercise Including Home Yes Exercise Program Manual Therapy Techniques Yes Neuromuscular Re-education Yes Therapeutic Activities to Return to Yes Previous Functional/Work Level ADL/Self Care Education Yes Dry Needling Yes Thermal Modalities Yes Electrical Stimulation Yes Ultrasound/Phonophoresis Yes Iontophoresis Yes Massage Yes Eval/Re-Eval Yes Frequency Times per week 2 Duration Number of Weeks 4-6 Addendums This patient is a candidate for social No or vocational rehab? Patient/Guardian verbally acknowledges Yes understanding of treatment program and consents to further treatment? Patient/Guardian verbally acknowledges Yes understanding of diagnosis, prognosis and goals for treatment? Eval Complexity PT Charges 29777 - Low Complexity Shoulder/Elbow Eval Shoulder Objective Measurements Elbow Objective Measurements PHYSICIAN CERTIFICATION: I certify the specified therapy services for Lynne Rogers are required, authorized, and reviewed every 30 days.
== END 2024-10-28 23:59 | disposition home or self-care (01) ==
LOC: PT 09:52
PROVIDERS: PCP Nurse Practitioner Family; Visit Provider Emergency Medicine
DX: M54.40 Lumbago with sciatica, unspecified side (principal); R20.0 Anesthesia of skin
CPT/HCPCS: 97163

== ENCOUNTER 2025-04-06 15:25 | Outpatient (CLI) | payer MEDICAID, SELFPAY ==
[2025-04-06 21:19] LABS: Adenovirus,PCR Not Detected (NotDetected); Chlamydophila Pneumoniae, PCR Not Detected (NotDetected); Coronavirus 19, PCR Not Detected (NotDetected); Coronovirus HKU1,PCR Not Detected (NotDetected); Influenza A, PCR Not Detected (NotDetected); Influenza AH1, 2009 Not Detected (NotDetected); Influenza AH1, PCR Not Detected (NotDetected); Influenza AH3,PCR Not Detected (NotDetected); Influenza B, PCR Not Detected (NotDetected); Mycoplasma Pneumoniae, PCR Not Detected (NotDetected); Parainfluenza 1, PCR Not Detected (NotDetected); Parainfluenza 2, PCR Not Detected (NotDetected); Parainfluenza 3, PCR Not Detected (NotDetected); Parainfluenza 4, PCR Not Detected (NotDetected)
--- OUTSIDE RECORDS SUMMARY | 2025-04-07 11:17 | XMS_ITS | Clinical Summary ---
Author Organization Healthcare Address [address] [place] [address] Care Team Providers Care Face And Fill Packer Name Role Phone Pcp, No Primary Care Provider Unavailabl e Allergies Active Allergy Reactions Criticality Noted Date Comments Sulfa Drugs Hives,Itching Medium 12/28/2020 Sulfamethoxazole-Trimethopr im Unknown - Patient states they do not know rxn details Low 05/24/2017 Vancomycin Itching,Rash Medium 01/11/2019 Immunizations Immunization Administration Dates Next Due Tdap 01/10/2019 Family History Medical History Relation Name Comments Cardiac disorder Other 1 Other cancer Other 2 Diabetes type II Other 3 Relation Name Status Comments Other 1 Other 2 Other 3 Social History Tobacco Use Types Packs/Day Years Used Date Smoking Tobacco: Every Day Alcohol Use Standard Drinks/Week Comments No 0 (1 standard drink = 0.6 oz pur e alcohol) Comments Unknown Sex and Gender Information Value Date Recorded Sex Assigned at Not on file Legal Sex Female 6:47 PM EDT Gender Identity Not on file Sexual Orientation Not on file Last Filed Vital Signs Vital Sign Reading Time Taken Comments Blood Pressure 93/66 09/22/2022 9:27 AM EST Pulse 90 09/22/2022 9:27 AM EST Temperature 37.1 C (98.8 F) 09/22/2022 9:27 AM EST Respiratory Rate 14 09/22/2022 9:27 AM EST Oxygen Saturation 98% 09/22/2022 9:27 AM EST Inhaled Oxygen Concentration - - Weight 55.8 kg (123 lb) 09/22/2022 9:57 AM EST Height 170.2 cm (5' 7 ) 09/22/2022 9:57 AM EST Body Mass Index 19.26 09/22/2022 9:57 AM EST Plan of Treatment Health Maintenance Due Date Last Done Comments [facility]-Depression Screening 1995 [facility]-/Child/Adol SDOH Screenings 1995 [facility]-Varicella Vaccines (1 of 2 - 13+ 2-dose series) 12/15/2008 [facility]- SDOH Screenings 12/15/2013 [facility]-Adult SDOH Screenings 12/15/2013 [facility]-Hepatitis B Vaccines (1 of 3 - 19+ 3-dose series) 12/15/2014 [facility]-Pap Smear 12/15/2016 HPV Vaccines (1 - 3-dose SCD M series) 12/15/2022 [id number] Vaccine (1 - 20 24-25 season) 2024 [facility]-Influenza Vaccine (#1) 2025 [facility]-DTaP,Tdap,and Td Vaccine s (2 - Td or Tdap) 01/10/2029 01/10/2019 [facility]-Zoster Vaccines (1 of 2) 12/15/2045 [facility]-HIV Screening Completed 10/09/2021 [facility]-Hepatitis C Screening Completed 10/09/2021 [facility]-HIB Vaccines Aged Out No longer e ligible based on patient's age to complete this topic [facility]-Hepatitis A Vaccines Aged Out No longer eligible based on patient's age to complete this topic [facility]-IPV Vaccines Aged Out No longer e ligible based on patient's age to complete this topic [facility]-Pneumococcal Vaccine: Pediatrics (0 to 5 Years) and At-Risk Patients (6 to 49 Years) Aged Out No long er eligible based on patient's age to complete this topic [facility]-Rotavirus Vaccines Aged Out No lo nger eligible based on patient's age to complete this topic Procedures Procedure Name Priority Date/Time Associated Diagnosis Comments HEPATITIS C ANTIBODY - ED W/REFLEX TO HCV QUANT PCR STAT 10/09/2021 9:35 PM EST HIV 1/2 ANTIBODY/ANTIGEN SCREEN WITH REFLEX TO HIV I/II DIFFERENTIATION STAT 10/09/2021 9:35 PM EST from Last 3 Months or Most Recently Relevant to Health Maintenance Results * HIV 1/2 Antibody/Antigen Screen (10/09/2021 9:35 PM EST) HIV 1 & 2 Antibody/Anti gen Screen Nonreactive Nonreactive 10/09/2021 11:00 PM EST [facility] Blood Venous blood specimen / Unknown Venipuncture / Unknown 10/09/2021 9:35 PM EST 10/09/2021 9:45 PM EST Nori Alexander MD LAB BLOOD ORDERABLES Final Re sult [facility] [address] [place] [address] * [place] Hepatitis C Antibody (10/09/2021 9:35 PM EST) Hepatitis C Antibody Negative Negative 10/09/2021 11:00 PM EST [facility] Blood Venous blood specimen / Unknown Venipuncture / Unknown 10/09/2021 9:35 PM EST 10/09/2021 9:45 PM EST Nori Alexander MD LAB BLOOD ORDERABLES Final Re sult Performing Organization Address City/[facility] Co de Phone Number [facility]ALTH[facility]ARE [facility] [address] [place] [address] from Last 3 Months or Most Recently Relevant to Health Maintenance [place] AETNA [facility] [employer] Care Teams Face And Fill Packer Relationship Specialty Start Date End Date Pcp, Shavon [address] [place] [address] PCP - General Family Medicine 10/09/21
--- OUTSIDE RECORDS SUMMARY | 2025-04-07 11:17 | XMS_ITS | Clinical Summary ---
Author Organization [facility] Address [address] [place] [address] Care Team Providers Care Supervisor Edging Name Role Phone Va Garrett APRN Primary Care Provider [phone] Allergies Active Allergy Reactions Criticality Noted Date Comments Sulfa Antibiotics Hives,Itching Low 12/28/2020 Vancomycin Itching,Rash Low 01/11/2019 Medications levocetirizine (XYZAL) 5 MG tablet Take 1 tablet by mouth Daily. Active fluticasone (FLONASE) 50 MCG/ACT nasal spray Daily. 4 Active EPINEPHrine (EPIPEN) 0.3 MG/0.3ML solution auto-injector injection 0.3 mL. 4 Active budesonide-form oterol (SYMBICORT) 80-4.5 MCG/ACT inhaler 4 Active albuterol sulfate HFA 108 (90 Base) MCG/ACT inhaler 4 Active Blood Pressure Monitoring (Blood Pressure Cuff) misc Use. Active vitamins (PRENATABS RX) 29-1 MG tablet tablet Take 1 tablet by mouth Daily. 30 tablet 11 4 05/05/20 25 Active Additional Information Patient not taking.Reported on 01/01/2025 PanOxyl Foaming Wash 10 % liquid WASH CHEST AND BACK ONCE DAILY IN THE SHOWER, LET SIT A FEW MINUTES BEFORE RINSING 4 Active clindamycin (CLEOCIN T) 1 % external solution APPLY A THIN LAYER TO ACNE PRONE AREAS ONCE DAILY 4 Active Vit-DSS-Fe Fum-FA (Se-Ty 19) 29-1 MG tablet Take 1 tablet by mouth Daily. 4 Active spironolactone (ALDACTONE) 25 MG tablet Take 1 tablet by mouth Every 12 (Twelve) Hours. 4 Active Retin-A 0.025 % cream APPLY A PEA SIZE AMOUNT TO FACE AT BEDTIME, FOLLOW WITH MOISTURIZER Active etonogestrel-et hinyl estradiol (NuvaRing) 0.12-0.015 MG/24HR vaginal ring Insert vaginally and leave in place for 3 consecutive weeks, then remove for 1 week. 1 each 12 4 Active Additional Information Patient not taking.Reported on 01/01/2025 Bremelanotide Acetate (Vyleesi) 1.75 MG/0.3ML solution auto-injectorIn dications:Decre ased libido Inject 1.75 mg under the skin into the appropriate area as directed 1 (One) Time As Needed (hypoactive sexual desire) for up to 1 dose. 1.2 mL 6 5 Active Active Problems Problem Noted Date Diagnosed Date Hidradenitis suppurativa 01/01/2025 Overview (01/01/2025): 01/01/2025. Recurrent draining abscesses in left groin area. Recommend follow-up with dermatology for possible hidradenitis. Rx for doxycycline 100 mg twice daily as needed for recurrence. Decreased libido 06/05/2024 Overview (01/01/2025): Testosterone was low. 06/05/2024 Rx for testosterone 2% cream sent to pharmacy. 01/01/2025; no improvement in libido post compounded testosterone supplementation. Requests Rx for Vyleesi PCOS (polycystic ovarian syndrome) 04/17/2024 Overview (06/05/2024): History of PCOS with acne and irregular menses. Ultrasound 04/17/2024 with multiple small bilateral ovarian follicles consistent with PCOS. PCOS labs negative except for reversal of LH/FSH. Infertility, anovulation 04/17/2024 Overview (04/17/2024): 04/17/2024. LH elevation test has been negative for 6 months. Irregular menses 04/17/2024 Overview (06/05/2024): 04/17/2024. Last menstrual period was 16 days ago. hCG was negative. Rx Provera 10 mg for 10 days to induce menses. Menses and days of Provera on 05/15/2024 through 05/21/2024. She is to start NuvaRing to regulate menses. 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 09/05/2023 wishes to start NuvaRing for contraception and regulate menses. Screening for cervical cancer 12/29/2020 Overview (04/23/2024): States Pap smear in 07/19/2020 was negative Pap smear done 04/06/2021. Pap smear 04/17/2024 was negative. HPV high risk Pool negative. Resolved Problems Problem Noted Date Diagnosed Date Resolved Date control counseling 04/06/2021 Overview (04/06/2021): Info on LARCs May want Nuvaring. Spontaneous vaginal delivery 02/17/2021 04/06/2021 Overview (02/17/2021): 02/17/2021 female infant 7 pounds 3 ounces. Iron deficiency anemia secon brent to inadequate dietary iron intake 02/02/2021 Overview (02/02/2021): Hematocrit 31%. Rx iron sulfate 325 mg twice daily. Acute viral syndrome 01/22/2021 021 Decreased movements in third trimester 02/02/2021 Vaginal discharge 01/21/2021 02/02/2021 12/15/2020 04/06/2021 Overview (12/29/2020): Transfer of care at 32 weeks. records were reviewed. Had early u/s confirming dates. 8-4/7 weeks. Maternal blood type O+. Hep B and C- HIV nonreactive. Rubella immune. RPR negative size inconsistent with dates 12/15/2020 04/06/2021 Overview (02/02/2021): S< dates; u/s 12/15/20; EFW 35%; AC 9% Repeat u/s 01/12/21; 34 WK; EFW 37%; AC 14% REPEAT AT 37 WK. > 44 percentile. Small for gestational age fe tus affecting management of mother in [place] in third trimester 12/15/2020 04/06/2021 Overview (02/02/2021): Ultrasound 12/15/2020 with estimated weight of 35 percentile and abdominal circumference of 9 percentile. Ultrasound at 34 weeks 37 percentile with AC of 14 percentile. Repeat at 37 wk was 44 percentile. On 02/02/2021. Encounters Date Type Department Care Team Description 01/06/2025 Telephone [facility] OBGYN [address] [facility] [place] [address] [place] [phone] Mya Foster MD from Last 3 Months Immunizations Immunization Administration Dates Next Due DTP / HiB 05/20/1997,06/20/1996,04/21/1996 ,02/18/1996 DTaP, Unspecified 05/10/2000 Hep B, Adolescent or Pediatric 12/22/1996,1995 Hep B, Unspecified 1995 IPV 05/10/2000 MMR 05/10/2000,06/18/1997 Meningococcal Polysaccharide 01/20/2008 OPV 06/20/1996,04/21/1996,02/18/1996 Tdap 01/10/2019,01/20/2008 Family History Medical History Relation Name Comments Ovarian cancer Maternal Aunt Breast cancer Maternal Grandmother Christina fung Relation Name Status Comments Maternal Aunt Maternal Grandmother Christina fung Social History Tobacco Use Types Packs/Day Years Used Date Smoking Tobacco: Former Electronic Cigarette Smokeless Tobacco: Never Tobacco Cessation:Counseling Given: Not Answered Alcohol Use Standard Drinks/Week Comments Not Currently 0 (1 standard drink = 0.6 oz pur e alcohol) AUDIT-C Answer Date Recorded Frequency of Alcohol Consumption Never 01/11/2019 Average Number of Drinks Not on file 019 Frequency of Binge Drinking Not on file 03/2019 [place] Depression Scale Answer Date Recorded [place] Depression Scale Total 5 04/06/2021 The thought of harming myself has occurred to me . Never 04/06/2021 Abuse Screen Answer Date Recorded Feels Unsafe at Home or Work/School no 09/08/2022 Feels Threatened by Someone no 10/2022 Does Anyone Try to Keep You From Having Contact with Others or Doing Things Outside Your Home? no 09/08/2022 Physical Signs of Abuse Present no 09/08/2022 Comments No Sex and Gender Information Value Date Recorded Sex Assigned at Not on file Legal Sex Female 1:47 PM EDT Gender Identity Not on file Sexual Orientation Not on file Last Filed Vital Signs Vital Sign Reading Time Taken Comments Blood Pressure 100/64 01/01/2025 10:33 AM EDT Pulse 90 09/08/2022 1:23 PM EST Temperature 37 C (98.6 F) 09/08/2022 1:23 PM EST Respiratory Rate 18 06/05/2024 10:29 AM EDT Oxygen Saturation 98% 09/08/2022 1:23 PM EST Inhaled Oxygen Concentration - - Weight 52.4 kg (115 lb 9.6 oz) 01/01/2025 10:33 AM EDT Height 162.6 cm (5' 4.02 ) 01/01/2025 10:33 AM E DT Body Mass Index 19.83 01/01/2025 10:33 AM EDT Plan of Treatment Health Maintenance Due Date Last Done Comments Annual Gynecologic Pelvic an d Breast Exam 1995 Pneumococcal Vaccine 0-49 (1 of 2 - PCV) 12/15/2014 ANNUAL PHYSICAL 12/15/2020 COVID-19 Vaccine (1 - 2023- season) 2024 INFLUENZA VACCINE 05/06/2025 PAP SMEAR 04/17/2027 04/17/2024 TDAP/TD VACCINES (3 - Td or Tdap) 01/10/2029 019, 01/20/2008 HEPATITIS C SCREENING Completed 10/09/2021, 021 CHLAMYDIA SCREENING Discontinued 04/17/2024 Procedures Procedure Name Priority Date/Time Associated Diagnosis Comments LIQUID-BASED PAP SMEAR WITH HPV GENOTYPING REGARDLESS OF INTERPRETATION, [facility] (JORGE,COR,MAD) Routine 04/17/2024 2:47 PM EDT Screening for cervical cancer HEPATITIS C ANTIBODY Routine 08/13/2020 from Last 3 Months or Most Recently Relevant to Health Maintenance Results * LIQUID-BASED PAP SMEAR WITH HPV GENOTYPING REGARDLESS OF INTERPRETATION (JORGE,COR,MAD) (04/17/2024 2:47 PM EDT) Reference Lab Report [facility] [address] [place] [address] or [phone] David Wiseman M.D., Manager Learning PATIENT NAME LABORATORY [address] I. [id number] AGE SEX SSN CLIENT REF # [facility] 28 1995 F [id number] [facility] NEDA CURTIS REQUESTING Dimitri ATTENDING [place] [address] MYA FOSTER DATE COLLECTED DATE RECEIVED DATE REPORTED 04/17/2024 04/17/2024 04/23/2024 ThinPrep Pap with Cytyc Imaging DIAGNOSIS: Negative for intraepithelial lesion or malignancy Multiple factors can influence accuracy of Pap tests; therefore, screening at regular intervals is necessary for early cancer detection. SPECIMEN ADEQUACY: SATISFACTORY FOR EVALUATION Transformation zone is present. SOURCE OF SPECIMEN: CERVICAL/ENDOCERV ICAL SLIDES: 1 CLINICAL HISTORY: Screening for cervical cancer, PCOS, Irregular menses HPV HR-HPV POOL: Negative The Aptima HPV assay is an in vitro nucleic acid amplification test for the qualitative detection of E6/E7 viral messenger RNA from 14 high risk types of HPV in cervical specimens. The high risk HPV types detected include: 16, 18, 31, 33, 35, 39, 45, 51, 52, 56, 58, 59, 66, 68 PATTERN CLEANER: JESICA SUMMERS (ASCP) CPT CODES: 37739, [id number] 04/23/2024 1:43 PM EDT [facility] ThinPrep Vial Cervix uteri structure / Unknown Collection / Unknown 04/17/2024 2:47 PM EDT 04/17/2024 2:47 PM EDT Mya Foster MD PATHOLOGY/CYTOLOGY ORDERAB LES Final Result [facility]
[address] [place] [address], * Hepatitis C Antibody (08/13/2020) External Hepatitis C Ab Negative Blood Historical Provider LAB BLOOD ORDERABLES Adele l Result from Last 3 Months or Most Recently Relevant to Health Maintenance Insurance [employer] Advance Directives * CPR (Attempt to Resuscitate) (Latest Code Status on File) Date Activated Date Inactivated Comments 02/17/2021 2:23 AM 02/19/2021 6:04 PM Question Answer Comments Code Status (Patient has no pulse and is not breathing): CPR (Attempt to Resuscitate) Medical Interventions (Patie nt has pulse or is breathing): Full * CPR (Attempt to Resuscitate) Date Activated Date Inactivated Comments 01/22/2021 2:25 PM 01/22/2021 4:50 PM Question Answer Comments Code Status (Patient has no pulse and is not breathing): CPR (Attempt to Resuscitate) Medical Interventions (Patie nt has pulse or is breathing): Full Level Of Support Discussed With: Patient Care Teams Supervisor Edging Relationship Specialty Start Date End Date Va Garrett APRN [address] [place] [address] PCP - General Nurse Practitioner 03/17/24
--- OUTSIDE RECORDS SUMMARY | 2025-04-07 11:17 | XMS_ITS | Encounter Summary ---
[facility] Address [address] [place] [address] Care Team Providers Care Mine Utility Operator Name Role Phone Va Garrett APRN Primary Care Provider [phone] Reason for Visit * Reason Onset Date Comments Med Refill 06/22/2024 Encounter Details Date Type Department Care Team (Late st Contact Info) Description 06/22/2024 Refill [facility] OBGYN [address] [place] [address] Bao Mendoza MD [address] [facility] [address] [place] [address] Social History Tobacco Use Types Packs/Day Years Used Date Smoking Tobacco: Former Cigarettes Q uit: 05/2020 Smokeless Tobacco: Never Alcohol Use Standard Drinks/Week Comments Not Currently 0 (1 standard drink = 0.6 oz pur e alcohol) AUDIT-C Answer Date Recorded Frequency of Alcohol Consumption Never 01/11/2019 Average Number of Drinks Not on file 019 Frequency of Binge Drinking Not on file 03/2019 [place] Depression Scale Answer Date Recorded [place] Depression Scale Total 5 04/06/2021 The thought [...] on file Sexual Orientation Not on file documented as of this encounter Plan of Treatment Not on file documented as of this encounter Visit Diagnoses Not on filedocumented in this encounter Care Teams Mine Utility Operator Relationship Specialty Start Date End Date Va Garrett APRN [address] [place] [address] PCP - General Nurse Practitioner 03/17/24 documented as of this encounter
== END 2025-04-06 23:59 | disposition home or self-care (01) ==
LOC: LAB.DROPOF 04-07 10:42
PROVIDERS: PCP Student in an Organized Health Care Education/Training Program; Visit Provider Student in an Organized Health Care Education/Training Program
DX: J06.9 Acute upper respiratory infection, unspecified (principal)
CPT/HCPCS: 0223U

== ENCOUNTER 2025-04-27 11:54 | Outpatient (CLI) | payer MEDICAID, SELFPAY ==
[2025-04-27 15:20] LABS: Adenovirus,PCR Not Detected (NotDetected); Chlamydophila Pneumoniae, PCR Not Detected (NotDetected); Coronavirus 19, PCR Not Detected (NotDetected); Coronovirus HKU1,PCR Not Detected (NotDetected); Influenza AH1, 2009 Not Detected (NotDetected); Influenza AH1, PCR Not Detected (NotDetected); Influenza AH3,PCR Not Detected (NotDetected); Influenza B, PCR Not Detected (NotDetected); Mycoplasma Pneumoniae, PCR Not Detected (NotDetected); Parainfluenza 1, PCR Not Detected (NotDetected); Parainfluenza 2, PCR Not Detected (NotDetected); Parainfluenza 3, PCR Not Detected (NotDetected); Parainfluenza 4, PCR Not Detected (NotDetected)
[2025-04-27 20:26] LABS: Influenza A, PCR Detected (NotDetected)
--- OUTSIDE RECORDS SUMMARY | 2025-04-28 14:58 | XMS_ITS | Encounter Summary ---
[facility] Address [address] [place] [address] Care Team Providers Care Oil Well Fishing Tool Operator Name Role Phone Va Garrett APRN Primary Care Provider [phone] Reason for Visit * Reason Onset Date Comments Med Refill 06/22/2024 Encounter Details Date Type Department Care Team (Late st Contact Info) Description 06/22/2024 Refill [facility] OBGYN [address] [place] [address] Bao Mendoza MD [address] [facility] [address] [place] [address] Social History Tobacco Use Types Packs/Day Years Used Date Smoking Tobacco: Former Cigarettes Q uit: 05/2020 Smokeless Tobacco: Never Alcohol Use Standard Drinks/Week Comments Not Currently 0 (1 standard drink = 0.6 oz pur e alcohol) AUDIT-C Answer Date Recorded Frequency of Alcohol Consumption Never 01/11/2019 Average Number of Drinks Not on file 019 Frequency of Binge Drinking Not on file 03/2019 [place] Depression Scale Answer Date Recorded [place] Depression Scale Total 5 04/06/2021 The thought [...] on filedocumented in this encounter Care Teams Oil Well Fishing Tool Operator Relationship Specialty Start Date End Date Va Garrett APRN [address] [place] [address] PCP - General Nurse Practitioner 03/17/24 documented as of this encounter
--- OUTSIDE RECORDS SUMMARY | 2025-04-28 14:58 | XMS_ITS | Clinical Summary ---
Author Organization Healthcare Address [address] [place] [address] Care Team Providers Care Bus Info Consultant Name Role Phone Pcp, No Primary Care [...] (1 - 3-dose SCD M series) 12/15/2022 [id number] Vaccine (1 - 20 24-25 season) 2025 [facility]-Influenza Vaccine (#1) 2025 [facility]-DTaP,Tdap,and Td Vaccine [...] Final Re sult [facility] [address] [place] [address] * [place] Hepatitis C Antibody (10/09/2021 9:35 PM EST) Hepatitis C Antibody Negative Negative 10/09/2021 11:00 PM EST [facility] Blood Venous blood specimen / Unknown Venipuncture / Unknown 10/09/2021 9:35 PM EST 10/09/2021 9:45 PM EST Nori Alexander MD LAB BLOOD ORDERABLES Final Re sult Performing Organization Address City/[facility] Co de Phone Number [facility] [address] [place] [address] from Last 3 Months or Most Recently Relevant to Health Maintenance [place] AET[place] [facility] [employer]ICA[employer] Care Teams Bus Info Consultant Relationship Specialty Start Date End Date Pcp, [place] [address] [place] [address] PCP - General Family Medicine 10/09/21
--- OUTSIDE RECORDS SUMMARY | 2025-04-28 14:58 | XMS_ITS | Clinical Summary ---
Author Organization [facility] Address [address] [place] [address] Care Team Providers Care Property Officer Name Role Phone Va Garrett APRN Primary Care Provider Allergies Active Allergy Reactions Criticality Noted Date [...] 37 wk was 44 percentile. On 02/02/2021. Immunizations Immunization Administration Dates Next Due DTP [...] of Binge Drinking Not on file 03/2019 [place] Depression Scale Answer Date Recorded [place] Depression Scale Total 5 04/06/2021 The thought [...] 2 - PCV) 12/15/2014 ANNUAL PHYSICAL 12/15/2020 INFLUENZA VACCINE 03/06/2025 PAP SMEAR 04/17/2027 04/17/2024 TDAP/TD VACCINES (3 [...] Reference Lab Report [facility] [address] [place] [address] or [phone] David Wiseman M.D., Jig Bore Tool Maker PATIENT NAME LABORATORY [address] I. [id number] AGE SEX SSN CLIENT REF # [facility] ([place]) 28 1995 F [id number] [facility] NEDA CURTIS REQUESTING Dimitri [place] [address] MYA FOSTER DATE COLLECTED DATE RECEIVED DATE [...] 51, 52, 56, 58, 59, 66, 68 ONCOLOGY NURSE: JESICA SUMMERS (ASCP) CPT CODES: [id number], [id number] 04/23/2024 1:43 PM EDT [facility] ThinPrep Vial Cervix uteri structure / Unknown Collection / Unknown 04/17/2024 2:47 PM EDT 04/17/2024 2:47 PM EDT us Mya Foster MD PATHOLOGY/CYTOLOGY ORDERAB LES Final Result [facility]
[address] [place] [address], [place] [phone] * Hepatitis C Antibody (08/13/2020) External Hepatitis C Ab Negative Blood us Historical Provider LAB BLOOD ORDERABLES Adele l [...] Of Support Discussed With: Patient Care Teams Property Officer Relationship Specialty Start Date End Date Va Garrett APRN [address] [place] [address] PCP - General Nurse Practitioner 03/17/24
== END 2025-04-27 23:59 | disposition home or self-care (01) ==
LOC: LAB.DROPOF 04-28 14:53
PROVIDERS: PCP Nurse Practitioner; Visit Provider Nurse Practitioner
DX: J06.9 Acute upper respiratory infection, unspecified (principal)
CPT/HCPCS: 0223U

== ENCOUNTER 2025-06-25 09:36 | Outpatient (CLI) | payer MEDICAID, SELFPAY ==
--- OUTSIDE RECORDS SUMMARY | 2025-06-29 10:31 | XMS_ITS | Clinical Summary ---
Author Organization [facility] Address [address] [place] [address] Care Team Providers Care Bottomer Operator Name Role Phone Va Ching APRN Primary Care Provider + Allergies Active Allergy Reactions Criticality Noted Date [...] Active Blood Pressure Monitoring (Blood Pressure Cuff) [facility] Use. Active PanOxyl Foaming Wash 10 % liquid WASH [...] TO FACE AT BEDTIME, FOLLOW WITH MOISTURIZER 4 Active etonogestrel-et hinyl estradiol (NuvaRing) 0.12-0.015 MG/24HR [...] delivery 02/17/2021 04/06/2021 Overview (02/17/2021): 02/17/2021 female 7 pounds 3 ounces. Iron deficiency anemia [...] of Binge Drinking Not on file 03/2019 [place] Depression Scale Answer Date Recorded [place] Depression Scale Total 5 04/06/2021 The thought [...] Reference Lab Report [facility] [address] [place] [address] or [phone] David Wiseman M.D., Print Press Operator PATIENT NAME LABORATORY NO. [address] DO I. [id number] AGE SEX SSN CLIENT REF # [facility] ([place]) 28 1995 F [id number] [facility] NEDA CURTIS REQUESTING Dimitri [place] [address] MYA FOSTER DATE COLLECTED DATE RECEIVED DATE [...] 51, 52, 56, 58, 59, 66, 68 BULLET SLUGS INSPECTOR: JESICA SUMMERS (ASCP) CPT CODES: [id number], [id number] 04/23/2024 1:43 PM EDT [facility] ThinPrep Vial Cervix uteri structure / Unknown Collection / Unknown 04/17/2024 2:47 PM EDT 04/17/2024 2:47 PM EDT us Mya Foster MD PATHOLOGY/CYTOLOGY ORDERAB LES Final Result [facility]
[address] [place] [address], * Hepatitis C Antibody (08/13/2020) External Hepatitis C Ab Negative Blood us Historical Provider MD LAB BLOOD ORDERABLES Adele l Result from Last 3 Months or Most Recently Relevant to Health Maintenance Insurance [facility] MEDICAID Advance Directives * CPR (Attempt to [...] Of Support Discussed With: Patient Care Teams Bottomer Operator Relationship Specialty Start Date End Date Va Ching APRN PCP - General Nurse Practitioner 03/17/24
--- OUTSIDE RECORDS SUMMARY | 2025-06-29 10:32 | XMS_ITS | Encounter Summary ---
[facility] Address [address] [place] [address] Care Team Providers Care Software Development Engineer Name Role Phone GerryVa Camilo APRN Primary Care Provider + Reason for Visit * Reason Onset Date Comments Med Refill 06/22/2024 Encounter Details Date Type Department Care Team (Late st Contact Info) Description 06/22/2024 Refill [facility] O[facility] [address] [place] [address] Bao Mendoza MD Social History Tobacco Use Types Packs/Day Years Used Date Smoking Tobacco: Former Cigarettes Q uit: 05/2020 Smokeless Tobacco: Never Alcohol Use Standard Drinks/Week Comments Not Currently 0 (1 standard drink = 0.6 oz pur e alcohol) AUDIT-C Answer Date Recorded Frequency of Alcohol Consumption Never 01/11/2019 Average Number of Drinks Not on file 019 Frequency of Binge Drinking Not on file 03/2019 [place] Depression Scale Answer Date Recorded [place] Depression Scale Total 5 04/06/2021 The thought [...] on filedocumented in this encounter Care Teams Software Development Engineer Relationship Specialty Start Date End Date Va Ching APRN PCP - General Nurse Practitioner 03/17/24 documented as of this encounter
--- OUTSIDE RECORDS SUMMARY | 2025-06-29 10:32 | XMS_ITS | Clinical Summary ---
Author Organization Healthcare Address [address] [place] [address] Care Team Providers Care Washing Tub Operator Name Role Phone Pcp, No Primary Care [...] (1 - 3-dose SCD M series) 12/15/2022 [id number]-[id number]-51 Vaccine (1 - 20 25- season) 2025 [facility]-Influenza Vaccine (#1) 2025 [facility]-DTaP,Tdap,and [...] Final Re sult [facility] [address] [place] [address] * [place] Hepatitis C Antibody (10/09/2021 9:35 PM EST) Hepatitis C Antibody Negative Negative 10/09/2021 11:00 PM EST [facility] Blood Venous blood specimen / Unknown Venipuncture / Unknown 10/09/2021 9:35 PM EST 10/09/2021 9:45 PM EST Nori Alexander MD LAB BLOOD ORDERABLES Final Re sult Performing Organization Address City/[facility] Co de Phone Number [facility]ALTH[facility] [address] [place] [address] from Last 3 Months or Most Recently Relevant to Health Maintenance Insurance [place] [employer] [facility] [employer] Care Teams Washing Tub Operator Relationship Specialty Start Date End Date Pcp, Shavon [address] [place] [address] PCP - General Family Medicine 10/09/21
== END 2025-06-25 23:59 ==
LOC: LAB.DROPOF 06-29 10:14
PROVIDERS: PCP Nurse Practitioner; Visit Provider Student in an Organized Health Care Education/Training Program
DX: N39.0 Urinary tract infection, site not specified (principal)
CPT/HCPCS: 87086

== ENCOUNTER 2025-07-06 10:00 | Outpatient (CLI) | payer MEDICAID, SELFPAY ==
--- OUTSIDE RECORDS SUMMARY | 2025-07-07 15:15 | XMS_ITS | Clinical Summary ---
Author Organization Healthcare Address [address] [place] [address] Care Team Providers Care Maintenance Man Name Role Phone Pcp, No Primary Care [...] Date Last Done Comments [facility]-Depression Screening 1995 [facility]-Infant/Child/Adol SDOH Screenings 1995 [facility]-Varicella Vaccines (1 of 2 - 13+ 2-dose series) 12/15/2008 [facility]- SDOH Screenings 12/15/2013 [facility]-Adult SDOH Screenings 12/15/2013 [facility]-Hepatitis B Vaccines (1 of 3 - 19+ 3-dose series) 12/15/2014 [facility]-Pap Smear 12/15/2016 HPV Vaccines (1 - 3-dose SCD M series) 12/15/2022 [id number]-32 Vaccine (1 - 20 25- season) 2025 [...] Final Re sult [facility] [address] [place] [address] * [place] Hepatitis C Antibody (10/09/2021 9:35 PM EST) Hepatitis C Antibody Negative Negative 10/09/2021 11:00 PM EST [facility]ALTH[facility]ARE [facility] Blood Venous blood specimen / Unknown Venipuncture / Unknown 10/09/2021 9:35 PM EST 10/09/2021 9:45 PM EST Nori Alexander MD LAB BLOOD ORDERABLES Final Re sult Performing Organization Address City/[facility] Co de Phone Number [facility] [address] [place] [address] from Last 3 Months or Most Recently Relevant to Health Maintenance Insurance [place] [employer] [facility] [employer] Care Teams Maintenance Man Relationship Specialty Start Date End Date Pcp, Shavon [address] [place] [address] PCP - General Family Medicine 10/09/21
--- OUTSIDE RECORDS SUMMARY | 2025-07-07 15:15 | XMS_ITS | Encounter Summary ---
[facility] Address [address] [place] [address] Care Team Providers Care Wound Care Coordinator Name Role Phone GerryVa Camilo APRN Primary Care Provider + Reason for Visit * Reason Onset Date Comments Med Refill 06/22/2024 Encounter Details Date Type Department Care Team (Late st Contact Info) Description 06/22/2024 Refill [facility] OBGYN [address] [place] [address] Bao Mendoza MD Social History [...] of Binge Drinking Not on file 03/2019 [place] Depression Scale Answer Date Recorded [place] Depression Scale Total 5 04/06/2021 The thought [...] on filedocumented in this encounter Care Teams Wound Care Coordinator Relationship Specialty Start Date End Date Va Ching APRN PCP - General Nurse Practitioner 03/17/24 documented as of this encounter
--- OUTSIDE RECORDS SUMMARY | 2025-07-07 15:15 | XMS_ITS | Clinical Summary ---
Author Organization [facility] Address [address] [place] [address] Care Team Providers Care Audio Technician Name Role Phone Va Ching APRN Primary [...] Active Blood Pressure [facility] C[facility]. Active PanOxyl Foaming Wash 10 % [...] of Binge Drinking Not on file 03/2019 [place] Depression Scale Answer Date Recorded [place] Depression Scale Total 5 04/06/2021 The thought [...] Reference Lab Report [facility] [address] [place] [address] or [phone] David Wiseman M.D., Track Laying Equipment Operator PATIENT NAME [facility]ORATORY NO. LYNNE DO I. [id number] AGE SEX SSN CLIENT REF # [id number] ([facility] 28 1995 F [id number] [facility] NEDA CURTIS REQUESTING Dimitri [place] [address] MYA FOSTER DATE COLLECTED DATE RECEIVED DATE [...] 51, 52, 56, 58, 59, 66, 68 CHICKEN HATCHERY HELPER: JESICA SUMMERS (ASCP) CPT CODES: 23566, [id number] 04/23/2024 1:43 PM EDT [facility] ThinPrep Vial Cervix uteri structure / Unknown Collection / Unknown 04/17/2024 2:47 PM EDT 04/17/2024 2:47 PM EDT us Mya Foster MD PATHOLOGY/CYTOLOGY ORDERAB LES Final Result [facility]
[address] [place] [address], * Hepatitis C Antibody (08/13/2020) External Hepatitis C Ab Negative Blood us Historical Provider MD LAB BLOOD ORDERABLES Adele l Result from Last 3 Months or Most Recently Relevant to Health Maintenance Insurance [facility] [place] [address] Advance Directives * CPR (Attempt to Resuscitate) [...] Of Support Discussed With: Patient Care Teams Audio Technician Relationship Specialty Start Date End Date Va Ching APRN PCP - General Nurse Practitioner 03/17/24
--- OUTSIDE RECORDS SUMMARY | 2025-07-07 15:15 | XMS_ITS | Data Portability ---
Author Organization [facility] Address [address] [place] [address] Assessment Encounter Date Assessment Date Assessment LastModified by Organization Details LastModified Time 09/12/2023 09/12/2023 Reproductive life plan discussed. Patient does plan to have children in the future. Domestic abuse counseling done. [facility] posted in patient waiting rooms and bathrooms. Not available 09/14/2023 12:50:48 11/15/2023 11/15/2023 Reproductive life plan discussed. Patient does plan to have children in the future. control offered. Patient declined. Number of sexual partners: _1 Patient is having unprotected sex. Domestic abuse counseling done. [facility] posted in patient waiting rooms and bathrooms. [email or web address] Not available 11/15/2023 12:16:47 02/04/2024 02/04/2024 Reproductive life plan discussed. Patient does plan to have children in the future. control offered. Patient declined. Number of sexual partners: 1_ Patient is having unprotected sex. Domestic abuse counseling done. [facility] centers posted in patient waiting rooms and bathrooms. [email or web address] Not available 02/04/2024 17:15:30 Plan of Treatment Reminders Order Date Submit Date Provider Last Modified By Organization Details Last Modified Time Details Appointments None recorded. Lab None recorded. Referral None recorded. Procedures None recorded. Surgeries None recorded. Imaging US, transvagina l 2023 024 [email or web address] [employer], [address] [place] [address] , [place], [address], 15:01:02 US, breast, bilateral - bilateral pain; suspect FBC 2023 024 SHAUN [facility]ig[facility] (Centralized Scheduling), [address] [place] [address] [place], [address], 4 08:25:03 Medication Orders Kyleena 17.5 mcg/24 hr (up to 5 years) 19.5 mg intrauterin e device [address] [facility], [facility], [place], [address], 10:17:02 Patient TargetsNo targets recorded. Patient Instructions Encounter Date Encounter Id Patient Instructions Last Modified By Organization Details Last Modified Time 09/12/2023 [id number] See HPI Schedule breast US Encourage 400IU Vit E Limit Caffeine Limit bras w/underwire-recomm end sports bra Continue SBE Rto for TVUS [email or web address] Not available 09/14/2023 12:51:35 09/17/2023 [id number] See HPI Rto for Mirena removal and Kyleena placement [email or web address] Not available 09/17/2023 15:01:25 11/15/2023 [id number] IUD removed without difficulty Patient understands immediate return to fertility Encourage PNV/folic acid [email or web address] Not available 11/15/2023 12:17:13 02/04/2024 [id number] See HPI Hot soaks/warm compress No undergarments at bedtime Avoid restrictive/constr ictive clothing Encourage antibacterial soap Keep appointment for AWE Not available 02/04/2024 17:16:38 Reason for Referral None Reported. Results Created Date Observation Date Name Description Value Unit Range Abnormal Flag Note LastModifiedBy Organization Detail LastModifiedTime 09/13/19 24 US, trans vagin al No observ ation record ed. [email or web address] [employer] [address] [facility] , [place], [address], 09/17/2023 15:00:59 09/17/19 24 US, trans vagin al No observ ation record ed. [email or web address] Not Available 2023 15:22:25 09/17/19 24 09/17/2023 US, trans vagin al No observ ation record ed. [email or web address] [employer] [address] [facility] , [place], [address], 09/17/2023 17:13:18 11/15/19 24 11/14/2023 US, adrián morton [facility] Name: CLIFF TAVERAS [address] l [employer] Phys: Mamadou Mccain APRN tae Ayoub [facility] [place] [address] : 1995 Age: 27 Sex: F Acct: [id number] Loc: [place] PHONE #: [phone] Exam Date: 2023 Status : DEP CLI FAX #: Rad# [id number] Unit# [id number] Admit Date: 2023 EXAMS: CPT CODE: [id number] 594 BREAST LTD ELYSSA [address] CLINIC AL INFORM ATION: Patien t compla ins of a palpab le fullne ss in the medial aspect of the right breast near the 3 to 4:00 axis and in the upper centra l aspect of the left breast . COMPAR TARYN: No compar taryn availa ble. FINDIN GS: Target ed sonogr aphy of the bilate ral breast s perfor med by Fernanda gonsalves RDMS. Right breast : There is hetero geneou s glandu lar tissue in the medial aspect of the right breast in the area of the patien t's compla int withou t domina nt mass or sergio ectura l distor tion. A couple of small cysts are at next within the glandu lar tissue . Left breast : In the or the patien t's compla int there is hetero geneou s tissue withou t domina nt mass or sergio ectura l distor tion. There is a 0.4 cm cyst noted in the area of compla int. IMPRES MICHAEL: 1. No worris ome sonogr aphic lesion s identi fied in the area patien t's palpab le compla ints medial right breast and upper centra l left breast . Recomm end clinic al survei llance to ensure stabil ity and/or of these compla ints. Findin gs and recomm endati ons were discus sed with the patien t. (CAT1) - CATEGO RY 1, NEGATI VE CS - CLINIC AL SURVEI LLANCE COMMUN ICATIO N: Per this writte n report This report is genera sukhjinder using voice recogn ition comput er softwa re. Inadve rtent errors may have occurr ed while dictat ing report . Common sense approa ch is apprec iated and do not hesita te to call for clarif icatio n when necess aidan. PAGE 1 Signed Report (VERONICA NUED) [facility] Name: CLIFF TAVERAS [address] [place] [address] [employer] Phys: [place] [address] : 1995 Age: 27 Sex: F Acct: [id number] Loc: G. PHONE #: [phone] Exam Date: 2023 Status : DEP CLI FAX #: Rad# [id number] Unit# [id number] Admit Date: 2023 EXAMS: CPT CODE: [id number] 594 BREAST LTD ELYSSA [address] Electr onical ly Signed by Dimitri Rosales on 2023 at 1651 Report ed and signed by: SHUN Rosales M.D. CC: [employer]; Kaylen Mccain APRN Dictat ed Date/T papa: 2023 (165) Techno logist : FERNANDA MARTINEZ RDanaTDana Transc ribed Date/T papa: 2023 (165) Transc riptio nist: DR.HAR HENRY Electr onic Signat ure Date/T papa: 2023 (165) Printe d Date/T papa: 2023 (1743) BATCH NO: N/A PAGE 2 Signed Report CC'ed Logic: Orderi ng Provid er: ADÁN TODD Attend ing Provid er: ADÁN TODD Referr ing Provid er: ADÁN TODD Consul ting Provid er: MICHA REYES [email or web address] [place] (Centralized Scheduling) [address] [place] [address] , [place], [address], 11/16/2023 11:40:36 Result Notes None recorded. Problems Name Problem SNOMED Code Status Onset Date Resolution Date Notes Provider Name and Address Organization Details Recorded Time Polycystic ovary syndrome 812965592 Active 2023 La Nena Rios null, [place] - [facility] 4 16:22:17 Hypoglycem ia 967907514 Active 2023 La Nena Rios null, [place] - [facility] 4 16:22:29 Asthma 113467480 Active 2023 La Nena Rios null, [place] - [facility] 4 16:27:02 Dyspareuni a 49775175 Active 2023 Kaylen Mccain APRN [address], [place], [address], [place] - [facility] 4 12:50:48 Mastodynia of bilateral breasts 4922826174855 9109 Active 2023 neg breast US 11/14/23 Kaylen Mccain, CLINICAL PRODUCT SPECIALIST [address], [place], [address], [place] - [facility] 4 11:41:05 Problem Notes None recorded. Procedures Surgical History Date Name Laterality Status Provider Name and Address Organization Details Recorded Time 11/15/19 24 IUD Removal completed Kaylen Mccain APRN [address], [place], [address], [place] - [facility] 11/15/2023 12:16:23 11/15/19 24 Remove intrauterine device completed La Nena Rios [place] - [facility] 11/15/2023 10:17:46 tonsillectomy completed La Nena Rios [place] - [facility] 09/12/2023 16:32:16 Imaging Results None recorded. Procedure Notes None recorded. Medical Equipment None Reported. Allergies Allergen ID Allergen Name Allergen Category Reaction Reaction Severity Criticality Documentation Date Start Date Code Code System Note Provider Name and Address Organization Details Recorded Time 091148 Substance with sulfonami de structure and antibacte rial mechanism of action (substanc e) medicatio n Not available Not available Not available 09/11/2023 06802 8003 SNOMED La Nena gonzalez, [place] - [facility] 4 09:44:28 Medications Name Sig Start Date Stop Date Status Note LastModified by Organization Details LastModified Time eq sinus 12-hour 120mg tab TAKE 1 TABLET BY MOUTH EVERY 12 HOURS NEEDED FOR NASAL CONGESTIO N 02/03 completed Not Available Not Available Not Available amoxicillin 500 mg capsule TAKE 1 CAPSULE BY MOUTH TWICE DAILY FOR 10 DAYS 09/12 completed Not Available Not Available Not Available Mirena 21 mcg/24 hr (up to 8 years) 52 mg intrauterin e device Take by intrauter ine route. 11/14 completed Not Available Not Available Not Available fluconazole 100 mg tablet TAKE 2 TABLETS BY MOUTH ONCE DAILY FOR 3 DAYS 09/12 completed Not Available Not Available Not Available triazolam 0.25 mg tablet TAKE 1 TABLET THE NIGHT BEFORE APPOINTME NT, TAKE 1 TABLET 1 HOUR BEFORE APPOINTME NT AND BRING THE OTHER TABLET TO THE APPOINTME NT 09/12 completed Not Available Not Available Not Available phenazopyri dine 200 mg tablet TAKE 1 TABLET BY MOUTH EVERY 8 HOURS FOR PAIN FOR 2 DAYS 02/03 completed Not Available Not Available Not Available ondansetron HCl 4 mg tablet TAKE 1 TABLET BY MOUTH EVERY 8 HOURS NEEDED FOR NAUSEA AND VOMITING FOR 5 DAYS 09/12 completed Not Available Not Available Not Available penicillin V potassium 500 mg tablet TAKE 1 TABLET BY MOUTH TWICE DAILY FOR 7 DAYS 09/12 completed Not Available Not Available Not Available metronidazo le 500 mg tablet TAKE 1 TABLET BY MOUTH EVERY 12 HOURS FOR 7 DAYS 09/12 completed Not Available Not Available Not Available ciprofloxac in 500 mg tablet TAKE 1 TABLET BY MOUTH TWICE DAILY FOR 5 DAYS 09/12 completed Not Available Not Available Not Available dicyclomine 20 mg tablet 09/12 completed Not Available Not Available Not Available amitriptyli ne 10 mg tablet TAKE 1 TO 2 TABLETS BY MOUTH ONCE DAILY AT BEDTIME active Not Available Not Available No t Available cyanocobala min (vit B-12) 1,000 mcg/mL injection solution INJECT 1 ML (CC) INTRAMUSC ULARLY ONCE A WEEK FOR 8 WEEKS active Not Available Not Available No t Available nystatin 100,000 unit/gram topical cream APPLY CREAM TOPICALLY TO AFFECTED AREA THREE TIMES DAILY FOR 10 DAYS 09/12 completed Not Available Not Available Not Available promethazin e 25 mg tablet TAKE 1 TABLET BY MOUTH EVERY 6 HOURS NEEDED FOR NAUSEA AND VOMITING 09/12 completed Not Available Not Available Not Available polymyxin B sulfate 10,000 unit-trimet hoprim 1 mg/mL eye drops 09/12 completed Not Available Not Available Not Available epinephrine 0.3 mg/0.3 mL injection, auto-inject or INJECT CONTENTS OF 1 PEN INTRAMUSC ULARLY NEEDED FOR SEVERE ALLERGIC REACTION active Not Available Not Available No t Available ibuprofen 600 mg tablet TAKE 1 TABLET BY MOUTH EVERY 6 HOURS NEEDED 09/12 completed Not Available Not Available Not Available cefuroxime axetil 500 mg tablet 09/12 completed Not Available Not Available Not Available albuterol sulfate HFA 90 mcg/actuati on aerosol inhaler INHALE 2 PUFFS BY MOUTH EVERY 4 TO 6 HOURS NEEDED DIRECTED active Not Available Not Available No t Available ondansetron 4 mg disintegrat ing tablet DISSOLVE 1 TABLET IN MOUTH EVERY 8 HOURS NEEDED FOR NAUSEA 09/12 completed Not Available Not Available Not Available cefdinir 300 mg capsule TAKE 1 CAPSULE BY MOUTH TWICE DAILY 02/03 completed Not Available Not Available Not Available fluticasone propionate 50 mcg/actuati on nasal spray,suspe nsion USE 1 TO 2 SPRAY(S) IN EACH NOSTRIL ONCE DAILY active Not Available Not Available No t Available amoxicillin 875 mg-potassiu m clavulanate 125 mg tablet TAKE 1 TABLET BY MOUTH TWICE DAILY FOR 7 DAYS 09/12 completed Not Available Not Available Not Available Flovent HFA 110 mcg/actuati on aerosol inhaler INHALE 1 PUFF BY MOUTH TWICE DAILY 09/12 completed Not Available Not Available Not Available Symbicort 80 mcg-4.5 mcg/actuati on HFA aerosol inhaler INHALE 2 PUFFS BY MOUTH TWICE DAILY NEEDED. RINSE MOUTH AFTER USE active Not Available Not Available No t Available levocetiriz ine 5 mg tablet TAKE 1 TABLET BY MOUTH ONCE DAILY active Not Available Not Available No t Available Kyleena 17.5 mcg/24 hr (up to 5 years) 19.5 mg intrauterin e device TAKE ONE (1) DEVICE BY INTRAUTER INE ROUTE. 11/14 completed Not Available Not Available Not Available Vitals Date Recorded Body height Body mass index (BMI) Body weight Pain severity - 0-10 verbal numeric rating [Score] - Reported Systolic And Diastolic Provider Name and Address Organization Details Last Updated DateTime 09/12/2023 160.02 cm 21 kg/m2 49937.06 g 0 116/70 mm[Hg] La Nena Rios [place] - [facility] 16:33:31 Date Recorded Body height Body mass index (BMI) Body weight Pain severity - 0-10 verbal numeric rating [Score] - Reported Systolic And Diastolic Provider Name and Address Organization Details Last Updated DateTime 09/17/2023 160.02 cm 21 kg/m2 53394.06 g 0 104/60 mm[Hg] La Nena FUENTES - [facility] 13:24:45 Date Recorded Body height Body mass index (BMI) Body weight Systolic And Diastolic Provider Name and Address Organization Details Last Updated DateTime 11/15/2023 160.02 cm 21.1 kg/m2 50482.49 g 104/70 mm[Hg] La Nena Rios [place] - [facility] 11/15/2023 10:21:06 Date Recorded Body mass index (BMI) Provider Name and Address Organization Details Last Updated DateTime 02/04/2024 21 kg/m2 Kaylen Mccain, APR N [address], [place], [address], [place] - [facility] 02/04/2024 13:45:33 Date Recorded Body height Body weight Systolic And Diastolic Provider Name and Address Organization Details Last Updated DateTime 02/04/2024 160.02 cm 63074.06 g 108/70 mm[Hg] La Nena Rios [place] - [facility] 02/04/2024 13:37:36 Social History Question Answer Notes LastModified by Organizat ion Details LastModified Time Tobacco Smoking Status Former Smoker La Nena gonzalez [place] - [facility] 09/12/2023 16:31:07 What Is Your Level Of Caffeine Consumption? Occasional [email or web address] Information not available 09/12/2023 What Is The Highest Grade Or Level Of School You Have Completed Or The Highest Degree You Have Received? [id number] [email or web address] Information not available 09/12/2023 When Did You Quit Smoking? 1-5yearssincel lyle [email or web address] Information not available 09/12/2023 Last Menstrual Period? 02/01/2024 [email or web address] Information not available 02/04/2024 What Was The Date Of Your Most Recent Tobacco Screening? 02/04/2024 Information not available 02/04/2024 How Many Children Do You Have? 1 [email or web address] Information not available 09/12/2023 What Is Your Relationship Status? Single [email or web address] Information not available 09/12/2023 Are You Sexually Active? Yes [email or web address] Information not available 09/12/2023 At What Age Did You Start Smoking Tobacco? 16 [email or web address] Information not available 09/12/2023 How Much Tobacco Do You Smoke? No [email or web address] Information not available 09/12/2023 Has Tobacco Cessation Counseling Been Provided? Yes [email or web address] Information not available 09/12/2023 On What Date Was Tobacco Cessation Counseling Provided? 02/04/2024 Information not available 02/04/2024 How Many Years Have You Smoked Tobacco? 11 [email or web address] Information not available 09/12/2023 What Contraceptive Method Was Reported At Start Of This Visit? None Information not available 02/04/2024 What Contraceptive Method Was Reported At End Of This Visit? None [email or web address] Information not available 11/15/2023 How Many Years Have You Used E-cigarettes Or Vape? 1.5 [email or web address] Information not available 09/12/2023 Do You Have Any Future Plans To Get ? I'm OK Either Way Information not available 02/04/2024 Sex: Female Functional Status Question Answer Note LastModified by Organizat ion Details LastModified Time Do you or have you ever used any other forms of tobacco or nicotine? Yes [email or web address] Information not available 09/12/2023 What is your level of alcohol consumption? Occasional [email or web address] Information not available 09/12/2023 Are you currently employed? Yes [email or web address] Information not available 09/12/2023 What is your status? Not [email or web address] Information not available 09/12/2023 Are you able to care for yourself independently? Yes [place] [address] Information not available 09/12/2023 What is your occupation? self employed [place] [address] Information not available 09/12/2023 Do you or have you ever used e-cigarettes or vape? Current user of electronic cigarettes vape [place] [address] Information not available 09/12/2023 Mental Status None recorded. Family History Relationship Description Onset Age of this Age Resolved Age Notes LastModified by Organization Details LastModified Time Mother Depressive disorder [email or web address] Not available 2023 16:25:40 Mother Anxiety disorder Not available 2023 16:25:49 Mother Hypertensive disorder [email or web address] Not available 2023 16:26:02 Mother Disorder of thyroid gland Not available 2023 16:26:24 Maternal Grandmother Depressive disorder [email or web address] Not available 2023 16:25:40 Maternal Grandmother Anxiety disorder Not available 2023 16:25:49 Maternal Grandmother Hypertensive disorder [email or web address] Not available 2023 16:26:02 Maternal Grandmother Malignant neoplasm of breast 50 Not available 2023 16:26:49 Maternal Grandmother Osteoporosis [email or web address] Not available 09/12/2023 16:27:49 Maternal Grandfather Malignant neoplasm of lung [email or web address] Not available 2023 16:28:01 Medical History No medical history recorded. Gynecological History Statement/Question Response Abnormal Pap N Flow Moderate Date of Last Mammogram Date of LMP 02/01/2024 Duration of Flow (days) 5 Current Control Method None Age at Menarche 15 Frequency of Cycle (Q days) 28 Sexually Active? Y Menses Monthly Y Date of Last Pap Smear LMP Definite Desired Control Method None Obstetrics History GPAL:G 1 P 1 0 0 1 Type Value Full Term 1 Living 1 Total 1 Immunizations Vaccine Type Date Status Note Provider Nam e and Address Organization Details Recorded Time IPV 0 completed La Nena Rios null, [place] - [facility] 09/12/2023 16:20:07 MMR 0 completed La N[place] R[place], [place] - [facility] 09/12/2023 16:20:07 MMR 7 completed La N[place] R[place], [place] - [facility] 09/12/2023 16:20:07 meningococcal MPSV4 8 completed La N[place] R[place] [facility] 09/12/2023 16:20:07 Tdap 9 completed La N[place] R[place] [facility] 09/12/2023 16:20:07 Tdap 8 completed [place] N[place] [facility] 09/12/2023 16:20:07 Hep B, unspecified formulation 6 completed La Nena [place], [place] - [facility] 09/12/2023 16:20:07 OPV, trivalent 6 completed La Nenalitzy Rios [place] - [facility] 09/12/2023 16:20:07 OPV, trivalent 6 completed La N[place] [facility] 09/12/2023 16:20:07 OPV, trivalent 6 completed [place] N[place] [facility] 09/12/2023 16:20:07 DTP-Hib 6 completed [place] N[place] R[place] [facility] 09/12/2023 16:20:07 DTP-Hib 6 completed La Nena [place] [facility] 09/12/2023 16:20:07 DTP-Hib 7 completed [place] N[place] R[place] [facility] 09/12/2023 16:20:07 DTP-Hib 6 completed [place] N[place] [facility] 09/12/2023 16:20:07 Hep B, adolescent or pediatric 7 completed La N[place] R[place] [facility] 09/12/2023 16:20:07 Hep B, adolescent or pediatric 6 completed La Nenalitzy R[place] - [facility] 09/12/2023 16:20:07 DTaP, unspecified formulation 0 completed La Nena ALFREDO Bab[place] - [facility] 09/12/2023 16:20:07 Past Encounters Encounter ID Performer Location Encounter Start Date Encounter Closed Date Diagnosis/Indication Diagnosis SNOMED-CT Code Diagnosis ICD10 Code Diagnosis IMO Codes Diagnosis Note [id number] MARIELLA Torres [employer] [address] [place] [address] ALFREDO Maki [id number] 09/12/2023 15:06:43 09/12/2023 17:00:59 Dyspareunia 72982484 N94.10 Mastodynia of bilateral breasts 8802611697 1066089 N64.4 Contracept ion care management 588995617 Z30.[address] [id number] MARIELLA Torres [employer] [address] [place] [address] ALFREDO Maki [id number] 09/17/2023 12:50:50 09/17/2023 13:43:08 Pain in pelvis 40473912 R10.2 Dyspareunia 24829511 N94 .10 Contracept ion care management 756508804 Z30.[address] [id number] MARIELLA Torres [employer] [address] [place] [address] ALFREDO Maki [id number] 11/15/2023 09:34:35 11/15/2023 10:45:08 Replacement of intrauterine contraceptive device 58458697 Z30.333 [id number] MARIELLA Torres [employer] [address] [place] [address] ALFREDO Maki [id number] 02/04/2024 13:22:38 02/04/2024 14:01:27 Cyst of vulva 26131750 N90.7 Health Concerns Section Related Observation LastModified by Organization Detai ls LastModified Time None Recorded Concern Status LastModified by Organization Details LastModified Time None Recorded Advance Directives Directive None Recorded Payers Insurance Date Sequence Insurance Name Policy Number Policy Adams Covered Member ID Adams Member ID Guarantor Name 02/25/2024 1 [facility] (MEDICAID HMO) Cliff Taveras [id number] Cliff Taveras 02/05/2024 [place] [facility] [employer] ([place]ICAID) Cliff Taveras [id number] Cliff Taveras Notes Date Note Type Note Provider Name and Address Organization Details Recorded Time 09/12/2023 text/html ROS as noted in the HPI Cliff presents today as a new patient. She has c/o bilateral breast swelling and intermittent nipple discharge ongoing since quit breast feeding over a year ago. She states her s/s remind her of mastitis although she denies redness, fever.Cliff has also noticed painful intercourse, lack of lubrication, and decreased sexual desire.Cliff adds she has had frequent UTI's and has been treated with antibiotics over the last several months. Kaylen Mccain APRN [address], [place], [address], [place] - [facility] 09/14/2023 12:51:54 09/17/2023 text/html ROS as noted in the HPI Cliff presents today to discuss results of ultrasound. .US was performed for pelvic pain, dyspareunia, and IUD check.US was read and interpreted by [employer]Pt. understands limitations of basic TVUS. Findings-IUD in proper location/position. Uterus is RV which may contribute to s/s. There is small cul de sac fluid present. After discussion of s/s and plan, Cliff desires to have Mirena removed and Kyleena placed. We reviewed all other contraceptive options, however, she prefers an IUD. D/t the ongoing pain with current IUD, she is hopeful a slightly smaller device will be more comfortable for her. Kaylen Mccain APRN [address], [place], [address], [place] - [facility] 09/17/2023 15:01:42 11/15/2023 text/html ROS as noted in the HPI Cliff presents today for IUD removal. She was planning replacement, however, has decided on removal only. She does not plan to start a different control. Kaylen Mccain APRN [address], [place], [address], [place] - [facility] 11/15/2023 12:18:03 02/04/2024 text/html Cliff presents today complaining of ongoing boils in vaginal area, currently has one near clitoris that is very painful, but it ruptured last night after being in hot tub. She states it was pea-sized. Discussed prevention and treatment of cysts/papules in future- warm compresses, loose clothing, antibacterial soap on outer portion of vagina, and witch camron application. Kaylen Adán, CLINICAL PRODUCT SPECIALIST [address], [place], [address], [place] - [facility] 02/04/2024 17:16:54 OBGyn Episode Ob Episode Information Episode Created Date Number of Fetuses Patient Bloodtype Patient rh Status Prepregnancy Weight lbs Domestic Partner Domestic Partner Phone Father Name Local Bulk Driver Status 09/12/19 24 1 CLOSED Fetus Data First Name Last Name Admitted to NICU Weight (g) Sex Living Outcome Pediatric Complications Fetus ID Race Codes Race Delivery Type F Full Term [id number] Vaginal Neto Calculation Initial Neto Date Initial Exam Date Initial Exam Provider Initial Ultrasound Date Last Menstrual Period Date Ultra Sound Weeks Gestation 0 Eighteen To Twenty Week Neto Update Ultra Sound Date Fundal Height At Umbil Quickening Date Ultra Sound Latest Weeks Gestation Final Neto Confirmed By Final Neto Confirmed Date Final Neto Date Ultra Sound Latest Days Gestation 0 0 Menstrual History Last Menstrual Date Menses Monthly On Bcp Conception Prior Menses Frequency Hcg Plus Date Menarche Onset Age Delivery Information Delivery Date Delivery Type Labor Anesthesia Weeks Gestation Incision Type Labor Labor Length Hrs Delivered By Post Complications Tubal Sterilization Discharge Date Comments 1 [facility] 37 false 20 [facility] Discharge Information Feeding Method Contraceptive Method Maternal HG B and HCT Levels
== END 2025-07-06 23:59 | disposition home or self-care (01) ==
LOC: LAB.DROPOF 07-07 15:13
PROVIDERS: PCP Nurse Practitioner Family; Visit Provider Nurse Practitioner
DX: R35.0 Frequency of micturition (principal)
CPT/HCPCS: 87086; 87088; 87186